=== PATIENT | female | born 1945 | race Caucasian/White ===

== ENCOUNTER → 2020-09-08 | Day surgery (SDC) | payer OTHER ==
--- OUTSIDE RECORDS SUMMARY | 2020-09-08 09:51 | XMS REPORT | Continuity of Care Document ---
:1945 Author Organization [facility] t Address [address] [place] [address] Care Team Providers Name Role Phone Unavailable Unavailable Unavailable Payers Payer Name Policy Type Policy Number Effective Date Expiration Date S ource Problems This patient has no known problems. Allergies, Adverse Reactions, Alerts Allergy Allergy Status Severity Reaction(s) Onset Inactive Treating Comm ents Source Name Type Date Date Clinician latex DA Active [place] 0 [facility] 9-01 [place] 00:[facility] latex DA Active [place] [facility] 8-31 [place] 00:00[facility] adhesive DA Active ID 0 [facility] 8-20 [place] 00:[facility] Medications This patient has no known medications. Procedures This patient has no known procedures. Results Test Description Test Time Test Comments Results Result [facility] Comments - XR FLUORO FOR 2020-07-08 Patient Name: SPINE INJ 11:04:00 JARRETT HERNANDEZ Unit No: [id number] EXAMS: CPT CODE: [id number] XR FLUORO FOR SPINE INJ 09825 LUMBAR TRANSFORAMINAL INJECTION REFERRING PHYSICIAN:Rolando Beckman M.D. PREOPERATIVE DIAGNOSIS: Degenerative Lumbar Disc Disease. POSTOPERATIVE DIAGNOSIS: Lumbar radiculopathy PROCEDURES PERFORMED 1. Fluoroscopically guided needle localization of the right L5, right S1 spinal nerve/nerves with transforaminal epidural steroid injection/injections. 2. Transforaminal epidurogram/epidurogra ms at right L5, right S1. FINDINGS: Poor filling right L5, right S1. Concordant provocation right L5 hip. Pain relief-100%. ANTIBIOTIC: Cefazolin ESTIMATED BLOOD LOSS: Minimal ANESTHESIA: (TIVA )Total intravenous anesthetic (patient intolerant to sedatives and hypnotics) COMPLICATIONS: None DETAILS OF PROCEDURE: After obtaining stable vital signs, informed consent and IV access, with no known contraindications to proceeding, the patient was taken to the fluoroscopy suite and placed in a prone position with all extremities padded and appropriate monitors placed. A sterile prep and drape was performed over the lumbosacral spine. Using fluoroscopic visualization at each level the insertion site was marked for a paravertebral approach to the foramen. Using standard technique, a 25 gauge needle was advanced to the base of the pedicle. In AP view, final positioning was obtained outside the 6 on the clock position on the pedicle. Then, 1 ml of Isovue-300 contrast was injected to produce the epidurograms. No paresthesias were elicited with needle insertion or injection and there were no signs of intravascular or intrathecal uptake. Then, with 1 ml of 4% lidocaine and 10 mg of triamcinolone was injected incrementally with frequent negative aspirations. There were no signs of intravascular or intrathecal uptake. Each subsequent level was done using the same technique and medications. The patient's vital signs remained stable. The patient was taken to the PACU in good condition. at 1104 Reported and signed by: Jose Woods M.D. CC: Technologist: Arelis Mcmillan(R) Transcribed D/ (1104) [email or web address] [place] [facility] NAME: MARYJARRETT ANN [address] [facility] PHYS: DOCUD - DoctorJose MD [place], [place] [address] : 1945 AGE: 75 SEX: F LOC: [place] PHONE #: [phone] EXAM DATE: 07/08/2020 STATUS: REG [facility] [place] FAX #: [phone] RAD #: D/C DT PAGE 1 Signed Report Patient Name: JARRETT HERNANDEZ JOSE Unit No: [id number] EXAMS: CPT CODE: [id number] XR FLUORO FOR SPINE INJ 19162 <Continued> Orig Print D/T: S: 07/08/2020 (1107) [place] [facility] NAME: JARRETT HERNANDEZ [address] [facility] PHYS: DOCUD - DoctorJose MD [place], [place] [address] : 1945 AGE: 75 SEX: F LOC: JAMES PHONE #: [phone] EXAM DATE: 07/08/2020 STATUS: REG SDC FAX #: [phone] RAD #: D/C DT PAGE 2 Signed Report - MRI L-SPINE W/O 2019-09-28 Patient Name: CONT 13:41:00 JARRETT HERNANDEZ Unit No: [id number] EXAMS: CPT CODE: [id number] MRI L-SPINE W/O CONT 40494 MRI OF THE LUMBAR SPINE: DIAGNOSIS: 1. At L1-2, a moderate to marked degeneration. There is 2 mm retrolisthesis of L5 on L2. No central canal stenosis. Moderate bilateral foraminal stenosis. 2. At L2-3, patient status post anterior discectomy and laminectomy. No foraminal stenosis. 3. At L3-4, patient status post anterior discectomy and laminectomy. Moderate right foraminal stenosis. 4. At L4-5, patient status post anterior discectomy and laminectomy. Mild bilateral bony foraminal stenosis. 5. At L5-S1, patient status post anterior discectomy and laminectomy. Mild right foraminal stenosis. 6. There appears to be solid interbody fusion at the surgical levels. COMMENT: COMPARISON: No prior exams available. Sagittal T1, T2 and STIR and axial T1 and T2-weighted sequences are obtained of the lumbar spine. The lumbar vertebrae are within normal limits in signal. The findings are as above. The conus is in the expected location. at 1341 Reported and signed by: Gray Alexander MD CC: Rolando Beckman MD Technologist: Hipolito Pond(R) Transcribed D/ (6029) SofiaGVG [facility] NAME: JARRETT HERNANDEZ [address] [facility] PHYS: SANDIP Haney KarunaRolando : 1945 AGE: 74 SEX: F [place] [id number] LOC: Y.MRI PHONE #: [phone] EXAM DATE: 09/28/2019 STATUS: REG CLI FAX #: [phone] RAD #: D/C DT PAGE 1 Signed Report Patient Name: JARRETT HERNANDEZ JOSE Unit No: [id number] EXAMS: CPT CODE: [id number] MRI L-SPINE W/O CONT 01716 <Continued> Orig Print D/T: S: 09/28/2019 (1345) [place] [facility] NAME: JARRETT HERNANDEZ [address] [place] [address] PHYS: Rolando Swanson Renato Facundo : 1945 AGE: 74 SEX: F [place] [address] LOC: Y.MRI PHONE #: [phone] EXAM DATE: 09/28/2019 STATUS: REG CLI FAX #: [phone] RAD #: D/C DT PAGE 2 Signed Report
--- NOTE | 2020-09-08 12:15 | RAD REPORT ---
EXAM DESCRIPTION: US - Fine Needle Asp Breast Guide - 09/08/2020 11:04 am CLINICAL HISTORY: N63.42, N63.23 COMPARISON: Follow Up Breast Axilla Comp dated 08/01/2020 FINDINGS: Preoperative diagnosis: Left breast lesions.. Post operative diagnosis: Same. Conscious Sedation: None Fluoroscopy time: None Contrast used: None Estimated blood loss: Minimal Specimens:Small volume of cyst fluid was sent to pathology. The left breast was prepped and draped in the usual sterile fashion. 1% lidocaine was infiltrated int o the subcutaneous tissues for local anesthesia. Real time ultrasound scanning of the left breast dem onstrated several varying shaped left breast lesions that were largely hypoechoic.. Under ultrasound guidance, using a 18-gauge FNA needle, the left breast cyst was aspirated. There were no complication s. IMPRESSION: Successful ultrasound-guided left breast cyst aspiration. Several hypoechoic lesions are scattered throughout the left breast, including somewhat poorly margin ated tissue in the periareolar region. Consider follow-up MRI breasts with contrast for further inves tigation.
== END ==
LOC: DS 09:30
PROVIDERS: ATTEND Surgery
DX: N63.42 Unspecified lump in left breast, subareolar (principal); N63.23 Unspecified lump in the left breast, lower outer quadrant
CPT/HCPCS: 10005; 76942; 88162

== ENCOUNTER 2022-03-28 07:35 | Emergency (ER) | payer OTHER ==
--- OUTSIDE RECORDS SUMMARY | 2022-03-28 07:38 | XMS REPORT | Continuity of Care Document ---
:1945 Author Organization [facility] t Address [address] [place] [id number] Care Team Providers Name Role Phone Gilberto Yifan Primary Care Physician Rebeca Morales Attending Clinician Unavailable Renato Beckman Attending Clinician Unavailable Mandeep JACQUES, S Attending Clinician Unavailable Only, Db Test Attending Clinician Unavailable Ebrahim ZINC MINER Attending Clinician EBRAHIM Attending Clinician Unavailable Doctor, Eloy Attending Clinician Unavailable Rebeca Morales Admitting Clinician Unavailable UNDEFINED Admitting Clinician Unavailable KNOW Admitting Clinician Unavailable Payers Payer Name Policy Type Policy Number Effective Date Expiration Date S ource Problems Condition Condition Condition Status Onset Resolution Last Treating Co mments Source Name Details Category Date Date Treatment Clinician Date No known No known Disease Metho di active active st problems problems Hospit [facility] Amnesia Problem Active 2021-08-14 Trev amy (finding) 01:55:23 l Amnesia [place] (finding) Active Problem 08/14/2021 [facility] Hyperlipid Problem Active 2021-08-14 M emoria emia 01:55:23 l (disorder) Mamadou n Hyperlipid emia (disorder) Active Problem 08/14/2021 [facility] Hypertensi Problem Active 2021-08-14 M emoria ve 01:55:23 l disorder, Alvin systemic Hypertensi arterial ve (disorder) disorder, systemic arterial (disorder) Active Problem 08/14/2021 [facility] Allergies, Adverse Reactions, Alerts Allergy Allergy Status Severity Reaction(s) Onset Inactive Treating Comm ents Source Name Type Date Date Clinician latex DA Active MO rash 2020-11 [facility] 2[facility] [place] [facility] latex DA Active MO 2020-0 [facility] 9[facility] [place] 00:[facility]: [facility] latex DA Active MO rash 2020-0 [facility] 9[facility] [place] 00:[facility] latex DA Active MO 2019-0 [facility] 9[facility]01 [place] 00:00: [facility] latex DA Active MO rash 2019-0 [facility] 9[facility]01 [place] 00:00: [facility] latex DA Active MO 2020-0 [facility] 8[facility]31 [place] 00:00: [facility] latex DA Active MO rash 2020-0 [facility] 8[facility]31 [place] 00:00: [facility] adhesive DA Active PR 2017-0 [facility] 8[facility]20 [place] 00[facility]00: [facility] adhesive DA Active PR BAD RASH 2017-0 [facility] 8[facility]20 [place] 00:00: [facility] NO KNOWN Drug Active Univers ALLERGIE Class ity of S [facility] [place] Social History Social Habit Start Date Stop Date Quantity Comments Source Exposure to Yes [facility] SARS-CoV-2 (event) [facility] Social History 2021-08-11 2021-08-11 [facility] 14:34:17 14:34:17 Sex Ass[birth year] [facility] 00:00:00 00:00:00 [facility] Smoking Status Start Date Stop Date Source Unknown if ever smoked [facility] Medications Ordered Filled Start Stop Current Ordering Indication Dosage Frequency Signature Comments Components Source Medication Medication Date Date Medication? Clinician (SIG) Name Name No known 2020-11 No Univers medications 2- ity of 11:45: [address] No known 2020-11 No Univers medications 2- ity of 11:45: [address] PreserVisio 2020-11 Yes 0 Memori a n AREDS 2 0-05 Refill(s) l 14:24: Alvin 00 Restasis 2020-11 Yes Q12H, 0 Memori a 0-05 Refill(s) l 14:20: Alvin 00 D3 1000 2020-11 Yes 0 Memoria 0-05 Refill(s) l 14:19: Alvin 00 Pataday 2020-11 Yes Daily, 0 Memori a 0-05 Refill(s) l 14:19: [place] 00 Omeprazole 2020-11 Yes 20 mg = 1 Me moria 20 MG 0-05 cap, PO, l Enteric 14:18: Daily, 0 Mamadou n Coated 00 Refill(s) Capsule [Prilosec] Citrucel 2020-11 Yes PO, 0 Memoria 0-05 Refill(s) l 14:18: Alvin 00 atorvastati 2020-11 No 40 mg = 1 M emoria n 40 mg 0-05 tab, PO, l oral tablet 14:17: Bedtime, # Alvin 00 30 tab, 0 Refill(s) losartan 25 2020-11 Yes 25 mg = 1 M emoria mg oral 0-05 tab, PO, l tablet 14:16: Daily, # [place] 00 30 tab, 0 Refill(s) Hydrochloro 2020-11 Yes 12.5 mg = M emoria thiazide 0-05 1 cap, PO, l 12.5 MG 14:16: Daily, # Mamadou n Oral 00 30 cap, 0 Capsule Refill(s) Atenolol 50 2020-11 Yes 50 mg = 1 M emoria MG Oral 0-05 tab, PO, l Tablet 14:16: Daily, # Alvin 00 30 tab, 0 Refill(s) pravastatin 2020-11 Yes 80 mg = 1 M emoria 80 mg oral 0-05 tab, PO, l tablet 14:16: Bedtime, # Catherine nn 00 30 tab, 0 Refill(s) gabapentin 2020-11 Yes 300 mg = 1 M emoria 300 MG Oral 0-05 cap, PO, l Capsule 14:14: TID, # 90 Catherine nn 00 cap, 0 Refill(s) No known No [facility] Immunizations Ordered Immunization Filled Immunization Date Status Commen ts Source Name Name PFIZER COVID-19 MRNA 2020-12-24 Completed Meth odist VACCINATION 00:00:00 [facility] PFIZER COVID-19 MRNA 2020-12-03 Completed Meth odist VACCINATION 00:00:00 [facility] Zoster Vaccine 2020-09-25 Completed Alevism Recombinant 00:00:00 [facility] FLUZONE HIGH-DOSE PF 2020-08-25 Completed Meth odist 00:00:00 Hospital Zoster Vaccine 2020-07-28 Completed Alevism Recombinant 00:00:00 Hospital Vital Signs Vital Name Observation Time Observation Value Comments Source Systolic (mm Hg) 2021-08-11 13:57:00 Trev Malhotra Diastolic (mm Hg) 2021-08-11 13:57:00 [facility] orial [place] Heart Rate 2021-08-11 13:57:00 [facility] Respitory Rate 2021-08-11 13:57[facility] [place] Height 2021-08-11 13:57:00 162.56 cm [facility] Weight 2021-08-11 13:57:00 [facility] BMI Calculated 2021-08-11 13:57:[facility] Procedures Procedure Date / Time Performed Performing Clinician Dalila e Lumbar discectomy [facility] nn Plan of Care Planned Activity Planned Date Details Comments Source Future Scheduled Test 65+ PNEUMOCOCCAL [facility] VACCINE (1 of 1 - PPSV23) [code = 65+ PNEUMOCOCCAL VACCINE (1 of 1 - PPSV23)] Future Scheduled Test SHINGLES VACCINES (#2) [facility] [code = SHINGLES VACCINES (#2)] Future Scheduled Test INFLUENZA VACCINE [code [facility] = INFLUENZA VACCINE] Encounters Start End Encounter Admission Attending Care Care Encounter Source Date/Time Date/Time Type Type Clinicians Facility Department ID 2021-10-23 Outpatient JASPAL Morales [id number] [facility] 19:21:51 Nikita 36 [place] [facility] 2021-08-14 Inpatient JASPAL Cota [facility] [id number] [facility] 09:15:00 Rolando [id number] [place] [facility] 2021-11-07 2021-11-07 Telephone KaufmanHERNESTO [id number] Univers 00:00:00 00:00:00 [facility]7.2.686 Branden as [id number] [facility] [address] 2021-11-06 2021-11-06 Laboratory Only, Ang Db Test [facility] 1.2.8 40.114 [id number] Univers 11:30:00 11:45:00 Only Meng Schroeder [facility] 350.1.13.10 [facility] 4.2.7.2.686 Branden as TOSHIA?BLEA [id number] Pr danni [address] MEDICAL OFFICE BUILDING 2021-11-06 2021-11-06 Outpatient Neema SCHROEDER [facility] [id number] Univers 11:30:00 11:30:00 MENG [facility] 2021-10-23 2021-10-23 Outpatient RONNIE DsouzaTO PAIN [id number] [facility] 08:49:00 08:49:00 Nikita [id number] [place] [facility] 2021-09-22 2021-09-22 Outpatient MHIE MHIE [id number] Memoria 09:00:00 09:00:00 01 l [place] 2021-08-14 2021-08-14 Outpatient RONNIE CotaTO RADI [id number] [facility] 08:16:00 08:16:00 Rolando 94 [place] [facility] 2021-08-11 2021-08-12 Outpatient nullFlavo MNA [id number] Memoria 13:30:00 04:59:59 r Neurology 00 [place] Malhotra 2021-07-10 2021-07-10 Outpatient JASPAL Dsouza PAIN [id number] [facility] 09:12:00 09:12:00 Nikita [id number] [place] [facility] 2020-12-24 2020-12-24 Clinical 1.2.840.1 [id number] Methodi 10:23:04 12:01:[address] 3.430.2.7 Hospit a .3.080093 l .8 2020-12-24 2020-12-24 Travel 1.2.840.1 1.2.659.583 [id number] Methodi 00:00:00 00:00:[address] 3.430.2.7 0.2.7.3.698 Ho spita .3.438887 084.8 l .8 2020-12-03 2020-12-03 Clinical 1.2.840.1 [id number] [facility]i 09:44:59 09:55:[address] 3.430.2.7 Hospit a .3.221810 l .8 2020-12-03 2020-12-03 Travel 1.2.840.1 1.2.487.289 7812 [id number] Methodi 00:00:00 00:00:[address] 3.430.2.7 0.2.7.3.698 Ho spita .3.739956 084.8 l .8 2020-11-25 2020-11-25 Travel 1.2.840.1 1.2.241.989 [id number] [id number] Methodi 00:00:00 00:00:[address] 3.430.2.7 0.2.7.3.698 Ho spita .3.112069 084.8 l .8 2020-07-08 2020-07-08 Outpatient Doctor, RONNIETO PAIN [id number] [facility] 12:00:00 12:00:00 Jose [place] [facility] Results Test Description Test Time Test Comments Results Result [facility] e Comments - XR FLUORO FOR 2021-10-23 SPINE INJ 19:18:00 [facility] JOSE : 1945 Sex: F Patient Name: JARRETT HERNANDEZ Unit No: [id number] EXAMS: CPT CODE: [id number] XR FLUORO FOR SPINE INJ 24992 LUMBAR EPIRADICULAR INJECTION REFERRAL PHYSICIAN: Rolando Beckman M.D. PREOPERATIVE DIAGNOSIS: Lumbar Radiculitis POSTOPERATIVE DIAGNOSIS: Status post L3-S1 fusion with right lumbar radiculitis PROCEDURES PERFORMED: Fluoroscopically guided needle localization of the right L5 and right S1 spinal nerves with transforaminal epidurograms and epidural injection of local anesthetic and steroid. FINDINGS: Good flow seen through the right L5-S1 foramen. Proximal flow was obstructed across the L4-5 disc. Flow seen around the S1 pedicle but limited in the right L5-S1 lateral recess. Provocation with injection was negative. Anesthetic response was positive with the patient noting relief of her right low back and radiating lower extremity pain. Preinjection VAS 4/10. Postinjection VAS 0/10. Steroid response pending follow-up. ESTIMATED BLOOD LOSS: Minimal ANESTHESIA: TIVA COMPLICATIONS: None DETAILS OF PROCEDURE: After obtaining stable vital signs, informed consent and IV access, with no contraindications, the patient was taken to the operating room and placed in a prone position with all extremities padded and appropriate monitors placed. The patient was sterilely prepped and draped over the lumbosacral spine. Using fluoroscopic visualization the insertion sites were marked for paravertebral approaches and using standard technique, a 25 gauge needle was advanced to the base of each pedicle without paresthesias. Isovue-300 contrast 0.2 mL of was injected at each level incrementally with frequent negative aspirations to produce each epidurogram. There were no signs of intravascular or intrathecal uptake. Bupivicaine 0.75% 0.25 mL with lidocaine 4% 0.5 mL and Decadron 8 mg was then incrementally injected with frequent negative aspirations at each level and again there were no signs of intravascular or intrathecal uptake. The needles were removed and the patient was taken to the PACU in good condition. Image: Image 1 Image: Image 2 at 1918 Reported and signed by: Nikita Morales M.D. [facility] NAME: JARRETT HERNANDEZ [address] [facility] PHYS: Nikita Wolff MD : 1945 AGE: 76 SEX: F [place], [place] [address] LOC: JAMES PHONE #: [phone] EXAM DATE: 10/23/2021 STATUS: REG [facility] FAX #: [phone] RAD #: D/C DT PAGE 1 Signed Report (CONTINUED) Patient Name: JARRETT HERNANDEZ Unit No: [id number] EXAMS: CPT CODE: [id number] XR FLUORO FOR SPINE INJ 16123 <Continued> CC: Nikita Morales MD Technologist: Carl Gage,RT(R) Transcribed D/ (1917) [facility]: JARRETT HERNANDEZ [address] [place] [address] PHYS: Nikita Wolff MD : 1945 AGE: 76 SEX: F [place] [address] LOC: JAMES PHONE #: [phone] EXAM DATE: 10/23/2021 STATUS: REG [facility] FAX #: [phone] RAD #: D/C DT PAGE 2 Signed Report Patient Name: JARRETT HERNANDEZ Unit No: [id number] EXAMS: CPT CODE: [id number] XR FLUORO FOR SPINE INJ 55257 <Continued> Orig Print D/T: S: 10/23/2021 (1920) [facility] NAME: JARRETT HERNANDEZ [address] [place] [address] PHYS: Nikita Wolff MD : 1945 AGE: 76 SEX: F [place] [address] LOC: JAMES PHONE #: [phone] EXAM DATE: 10/23/2021 STATUS: REG [facility] FAX #: [phone] RAD #: D/C DT PAGE 3 Signed Report - MRI L-SPINE W/O 2021-08-14 [facility] 10:32:00 [facility] : 1945 Sex: F Patient Name: JARRETT HERNANDEZ Unit No: [id number] EXAMS: CPT CODE: [id number] MRI L-SPINE W/O CONT 01631 DIAGNOSIS: 1. At L1-2 there is endplate and disc degeneration and a grade 2 retrolisthesis with associated disc protrusion which is lateralizing into the left neural foramen. Moderate left foraminal narrowing is seen with moderate to marked right-sided stenosis. Moderate narrowing of the central canal is present with facet degeneration. Comparison is made with the previous examination of September 28, 2019. 2. At L2-3 the patient is status post discectomy and graft with mild right foraminal narrowing without left-sided stenosis. No canal stenosis is seen. 3. At L3-4 the patient is status post discectomy and graft with moderate right foraminal narrowing without left-sided stenosis. Decompression of the canal has been performed. 4. At L4-5 the patient is status post discectomy and graft with moderate right foraminal narrowing and mild left-sided stenosis. Decompression of the canal has been performed. 5. At L5-S1 the patient is status post discectomy and graft with mild foraminal narrowing. Decompression of the canal has been performed. COMMENT: COMPARISON: September 28, 2019 Scans were performed in the sagittal and axial planes utilizing T1, T2 and inversion recovery images. Postsurgical change is noted from L4 to to S1. Endplate and disc degeneration is seen at L1-2. There is a scoliosis convex left. Disc configurations are as described. Spondylitic changes are as noted. The conus is in the expected location. The description of the levels of these findings is consistent with the prior exam. at 1032 Reported and signed by: David Zavala MD CC: Nikita Morales MD; Rolando Beckman MD Technologist: LESTER MIRANDA MRI Transcribed D/ (1032) t.[email or web address].[email or web address] [facility] NAME: JARRETT HERNANDEZ [address] [facility]: Rolando Swanson : 1945 AGE: 76 SEX: F [place], [place] [address] LOC: Y.MRI PHONE #: [phone] EXAM DATE: 08/14/2021 STATUS: REG CLI FAX #: [phone] RAD #: D/C DT PAGE 1 Signed Report Patient Name: JARRETT HERNANDEZ JOSE Unit No: [id number] EXAMS: CPT CODE: [id number] MRI L-SPINE W/O CONT 01107 <Continued> Orig Print D/T: S: 08/14/2021 (1035) [facility] NAME: JARRETT HERNANDEZ [address] [facility] PHYS: Rolando Swanson : 1945 AGE: 76 SEX: F [place], [place] [address] LOC: Y.MRI PHONE #: [phone] EXAM DATE: 08/14/2021 STATUS: REG CLI FAX #: [phone] RAD #: D/C DT PAGE 2 Signed Report - XR FLUORO FOR 2021-07-10 SPINE INJ 18:59:00 [facility] [place] [facility] : 1945 Sex: F Patient Name: JARRETT HERNANDEZ JOSE Unit No: [id number] EXAMS: CPT CODE: [id number] XR FLUORO FOR SPINE INJ 62477 LUMBAR EPIRADICULAR INJECTION REFERRAL PHYSICIAN: Rolando Beckman M.D. PREOPERATIVE DIAGNOSIS: Lumbar Radiculitis POSTOPERATIVE DIAGNOSIS: Status post L3-S1 fusion with right lumbar radiculitis PROCEDURES PERFORMED: Fluoroscopically guided needle localization of the right L5 and right S1 spinal nerves with transforaminal epidurograms and epidural injection of local anesthetic and steroid. FINDINGS: Good flow seen along the L5 and S1 nerve root sleeves with good flow through the foramen and across the L5-S1 disc. Provocation with injection was negative. Anesthetic response was positive with the patient noting complete relief of her right low back and lower extremity pain. Preinjection VAS 1/10. Postinjection VAS 0/10. Steroid response pending follow-up. ESTIMATED BLOOD LOSS: Minimal ANESTHESIA: TIVA COMPLICATIONS: None DETAILS OF PROCEDURE: After obtaining stable vital signs, informed consent and IV access, with no contraindications, the patient was taken to the operating room and placed in a prone position with all extremities padded and appropriate monitors placed. The patient was sterilely prepped and draped over the lumbosacral spine. Using fluoroscopic visualization the insertion sites were marked for paravertebral approaches and using standard technique, a 25 gauge needle was advanced to the base of each pedicle without paresthesias. Isovue-300 contrast 0.2 mL of was injected incrementally with frequent negative aspirations to produce each epidurogram. There were no signs of intravascular or intrathecal uptake. Bupivicaine 0.75% 0.25 mL with lidocaine 4% 0.5 mL and Decadron 1 mg was then incrementally injected with frequent negative aspirations and again there were no signs of intravascular or intrathecal uptake. The needles were removed and the patient was taken to the PACU in good condition. Image: Image 1 Image: Image 2 at 1859 Reported and signed by: Nikita Morales M.D. [facility] NAME: SINTIAJARRETT JOSE [address] [facility] PHYS: Nikita Wolff MD [place], [place] [address] : 1945 AGE: 76 SEX: F LOC: JAMES PHONE #: [phone] EXAM DATE: 07/10/2021 STATUS: REG [facility] FAX #: [phone] RAD #: D/C DT PAGE 1 Signed Report (CONTINUED) Patient Name: JARRETT HERNANDEZ Unit No: [id number] EXAMS: CPT CODE: [id number] XR FLUORO FOR SPINE INJ 54915 <Continued> CC: Technologist: Arelis Mcmillan(R) Transcribed D/ (185) [facility] NAME: JARRETT HERNANDEZ [address] [facility] PHYS: Nikita Wolff MD [place] [address] : 1945 AGE: 76 SEX: F LOC: JAMES PHONE #: [phone] EXAM DATE: 07/10/2021 STATUS: REG [facility] FAX #: [phone] RAD #: D/C DT PAGE 2 Signed Report Patient Name: JARRETT HERNANDEZ Unit No: [id number] EXAMS: CPT CODE: [id number] XR FLUORO FOR SPINE INJ 75855 <Continued> Orig Print D/T: S: 07/10/2021 (1903) [facility] NAME: JARRETT HERNANDEZ [address] [facility] PHYS: Nikita Wolff MD [place] [address] : 1945 AGE: 76 SEX: F LOC: JAMES PHONE #: [phone] EXAM DATE: 07/10/2021 STATUS: REG [facility] FAX #: [phone] RAD #: D/C DT PAGE 3 Signed Report - XR FLUORO FOR 2020-07-08 Patient Name: SPINE INJ 11:04:00 JRARETT HERNANDEZ JOSE Unit No: [id number] EXAMS: CPT CODE: [id number] XR FLUORO FOR SPINE INJ 29102 LUMBAR TRANSFORAMINAL INJECTION REFERRING PHYSICIAN:Rolando Beckman M.D. [...] CC: Technologist: Arelis Mcmillan(R) Transcribed D/ (1104) SofiaUVD [place] [facility] NAME: JARRETT HERNANDEZ [address] [facility] PHYS: DOCUD - DoctorJose MD [place], [place] [address] : 1945 AGE: 75 SEX: F LOC: JAMES PHONE #: [phone] EXAM DATE: 07/08/2020 STATUS: REG [facility] FAX #: [phone] RAD #: D/C DT PAGE 1 Signed Report Patient Name: JARRETT HERNANDEZ Unit No: [id number] EXAMS: CPT CODE: [id number] XR FLUORO FOR SPINE INJ 17315 <Continued> Orig Print D/T: S: 07/08/2020 (1107) [place] [facility] NAME: JARRETT HERNANDEZ [address] [facility] PHYS: DOCUD - DoctorJose MD [place], [place] [address] : 1945 AGE: 75 SEX: F LOC: JAMES PHONE #: [phone] EXAM DATE: 07/08/2020 STATUS: REG [facility] FAX #: [phone] RAD #: D/C DT PAGE 2 Signed Report - MRI L-SPINE W/O 2019-09-28 Patient Name: CONT 13:41:00 JARRETT HERNANDEZ Unit No: [id number] EXAMS: CPT CODE: [id number] MRI L-SPINE W/O CONT 57994 MRI OF THE LUMBAR SPINE: DIAGNOSIS: 1. [...] MD CC: Rolando Beckman MD Technologist: Hipolito Pond(Neema) Transcribed D/ (9032) SofiaGVG [facility] NAME: JARRETT HERNANDEZ [address] [facility] PHYS: Rolando Swansonkrysta [place] : 1945 AGE: 74 SEX: F [place] [address] LOC: Y.MRI PHONE #: [phone] EXAM DATE: 09/28/2019 STATUS: REG CLI FAX #: [phone] RAD #: D/C DT PAGE 1 Signed Report Patient Name: JARRETT HERNANDEZ Unit No: [id number] EXAMS: CPT CODE: [id number] MRI L-SPINE W/O CONT 95112 <Continued> Orig Print D/T: S: 09/28/2019 (1345) [facility] NAME: JARRETT HERNANDEZ [address] [facility] PHYS: Rolando Swansonn Facundo : 1945 AGE: 74 SEX: F [place] [address] LOC: Y.MRI PHONE #: [phone] EXAM DATE: 09/28/2019 STATUS: REG CLI FAX #: [phone] RAD #: D/C DT PAGE 2 Signed Report
[2022-03-28 08:46] LABS: Absolute Lymphocytes (CBC) 1.6 K/uL (0.7-4.9); Hematocrit 34.7 % (36.0-45.0); Lymphocytes % 41.2 % (15.3-44.8); MPV 8.2 fL (7.6-11.3)
--- NOTE | 2022-03-28 08:46 | RAD REPORT ---
EXAM DESCRIPTION: RAD - Chest Single View - 03/28/2022 8:22 am CLINICAL HISTORY: high bp COMPARISON: Two view chest 06/29/2019 TECHNIQUE: AP portable chest image was obtained 03/28/2022 8:22 am . FINDINGS: No focal mass or consolidation. Diffusely prominent interstitial pattern is not clearly di fferent from comparison. Severity of interstitial disease could mask superimposed edema or infiltrate . Electronic device overlies the lateral upper left chest. Heart and vasculature are normal. No measura ble pleural effusion and no pneumothorax. No acute bony abnormality seen. No acute aortic findings crews spected. IMPRESSION: Diffusely prominent interstitial lung pattern not significantly different from compariso n. Severity of chronic findings could mask early edema or infiltrate.
[2022-03-28 08:50] LABS: Protime INR 1.05
[2022-03-28 09:03] LABS: ALT/SGPT 30 U/L (12-78); AST/SGOT 19 U/L (15-37); Albumin 3.2 g/dL (3.4-5.0); Alkaline Phosphatase 116 U/L (45-117); BUN Blood Urea Nitrogen 14 mg/dL (7-18); Bicarbonate 29 mmol/L (21-32); Bilirubin Total 0.3 mg/dL (0.2-1.0); Glomerular Filtration Rate 79 ml/min (=/>90); Glucose Level 116 mg/dL (74-106); Magnesium 2.1 mg/dL (1.8-2.4); NT PRO-BNP 245 pg/mL (<450); Potassium 3.4 mmol/L (3.5-5.1); Protein, Total 6.8 g/dL (6.4-8.2); Sodium Level 141 mmol/L (136-145); Troponin High Sensitivity 6.1 pg/mL (<58.9)
[2022-03-28] MEDS ORDERED: hydroCHLOROthiazide 25 MG TAB ONE (09:06)
[2022-03-28] MEDS ORDERED: atenoloL 50 MG TAB ONE (09:06)
[2022-03-28] MEDS ORDERED: LOSARTAN POTASSIUM 50 MG TABLET ONE (09:06)
[2022-03-28 09:07] LABS: Bilirubin Direct < 0.1 mg/dL (0-0.2)
[2022-03-28 09:33] LABS: Blood Morphology Comment NOT SEEN (NOT SEEN); Platelet Estimate ADEQ
--- NOTE | 2022-03-28 10:54 | ER ---
Nurse's Notes [facility] Name: Samira Patricio Age: 77 yrs Sex: Female : 1945 Arrival Date: 03/28/2022 Time: 07:38 Bed 7 Private MD: Jez Macias Diagnosis: Essential (primary) hypertension Presentation: 03/28 07:54 Chief complaint: Patient states: "Carole been on a heart monitor for a week and Im suppose vg1 to have a stress test on ; but this morning I notice my blood pressure was high" Denies chest pain or SOB; stated pain in left arm x 2 weeks. BP at home was 187/85 at 0615 and reassessed at 0645 of 176/80. Coronavirus screen: Vaccine status: Patient reports receiving the 2nd dose of the covid vaccine. Client denies travel out of the [place] in the last 14 days. Ebola Screen: Patient denies exposure to infectious person. Patient denies travel to an Ebola-affected area in the 21 days before illness onset. Initial Sepsis Screen: Does the patient meet any 2 criteria? No. Patient's initial sepsis screen is negative. Does the patient have a suspected source of infection? No. Patient's initial sepsis screen is negative. Risk Assessment: Do you want to hurt yourself or someone else? Patient reports no desire to harm self or others. Onset of symptoms was March 28, 2022. 07:54 Method Of Arrival: Ambulatory vg1 07:54 Acuity: MEME 3 vg1 Triage Assessment: 07:56 General: Appears comfortable, Behavior is calm, cooperative. Pain: Complains of pain in vg1 left arm. Cardiovascular: Patient's skin is warm and dry. Respiratory: Airway is patent Respiratory effort is even, unlabored. Historical: - Allergies: 07:56 No Known Allergies; vg1 - Home Meds: 07:56 Pepcid Oral [Active]; losartan oral [Active]; atenolol Oral [Active]; pravastatin oral vg1 [Active]; gabapentin oral [Active]; - PMHx: 07:56 Hypertensive disorder; Scoliosis; Hypercholesterolemia; vg1 - Immunization history:: Client reports receiving the 2nd dose of the Covid vaccine. - Social history:: Smoking status: Patient denies any tobacco usage or history of. - Family history:: not pertinent. Screenin:54 Abuse screen: Denies threats or abuse. Denies injuries from another. Nutritional ww screening: No deficits noted. Tuberculosis screening: No symptoms or risk factors identified. Fall Risk None identified. Assessment: 08:15 General: Appears in no apparent distress. Behavior is calm, cooperative. Pain: Denies ww pain. Neuro: Level of Consciousness is awake, alert, obeys commands, Oriented to person, place, time, situation, Moves all extremities. Speech is normal. Cardiovascular: Patient's skin is warm and dry. Respiratory: Airway is patent Respiratory effort is even, unlabored, Respiratory pattern is regular, symmetrical. GI: No signs and/or symptoms were reported involving the gastrointestinal system. : No signs and/or symptoms were reported regarding the genitourinary system. Derm: No signs and/or symptoms reported regarding the dermatologic system. Skin is thin. 09:30 Reassessment: Patient appears in no apparent distress at this time. No changes from ww previously documented assessment. Patient and/or family updated on plan of care and expected duration. Pain level reassessed. Patient is alert, oriented x 3, equal unlabored respirations, skin warm/dry/pink. 10:15 Reassessment: Patient appears in no apparent distress at this time. No changes from ww previously documented assessment. Patient and/or family updated on plan of care and expected duration. Pain level reassessed. Patient is alert, oriented x 3, equal unlabored respirations, skin warm/dry/pink. 11:03 Reassessment: Patient appears in no apparent distress at this time. No changes from ww previously documented assessment. Patient and/or family updated on plan of care and expected duration. Pain level reassessed. Patient is alert, oriented x 3, equal unlabored respirations, skin warm/dry/pink. Vital Signs: 07:54 BP 152 / 84; Pulse 68; Resp 18; Temp 97.7; Pulse Ox 100% ; Weight 89.81 kg; Height 5 vg1 ft. 5 in. (165.10 cm); Pain 3/10; 08:30 BP 174 / 70; Pulse 64; Resp 16; Pulse Ox 98% ; ww 09:30 BP 170 / 58; Pulse 59; Resp 15; Pulse Ox 96% ; ww 10:00 BP 150 / 62; Pulse 53; Resp 14; Pulse Ox 97% ; ww 10:52 BP 165 / 65; Pulse 60; Resp 18; Pulse Ox 98% ; ww 07:54 Body Mass Index 32.95 (89.81 kg, 165.10 cm) 1 ED Course: 07:38 Patient arrived in ED. mr 07:38 Jez Macias MD is Private Physician. mr 07:44 Jac Anaya MD is Attending Physician. [facility] 07:56 Triage completed. 1 07:56 Yareli Haney, RN is Primary Nurse. ww 07:56 Arm band placed on. vg1 08:23 XRAY Chest (1 view) In Process Unspecified. EDMS 08:28 Initial lab(s) drawn, by me, sent to lab. Inserted saline lock: 20 gauge in right dh3 antecubital area, using aseptic technique. Blood collected. 10:54 Patient has correct armband on for positive identification. Placed in gown. Bed in low ww position. Call light in reach. Side rails up X 1. Adult w/ patient. Client placed on continuous cardiac and pulse oximetry monitoring. NIBP monitoring applied. 10:54 No provider procedures requiring assistance completed. ww 11:17 IV discontinued, bleeding controlled, No redness/swelling at site. Pressure dressing ww applied. Administered Medications: 09:22 Drug: Losartan 25 mg Route: PO; ww 09:22 Drug: Hydrochlorothiazide 12.5 mg Route: PO; ww 09:22 Drug: Atenolol 50 mg Route: PO; ww Medication: 11:17 VIS not applicable for this client. ww Outcome: 10:53 Discharge ordered by . [facility] 11:17 Discharged to home ambulatory, with family. ww 11:17 Condition: stable 11:17 Discharge instructions given to patient, family, Instructed on discharge instructions, follow up and referral plans. medication usage, safety practices, Demonstrated understanding of instructions, follow-up care, medications. 11:17 Patient left the ED. ww Signatures: Dispatcher [employer] [facility] Tashia Vazquez, [facility] Jac Anaya MD MD ma2 Garcia, Victoria, RN RN [facility] Yareli Haney, RN RN ww
--- NOTE | 2022-03-28 10:54 | EDPHYS ---
Physician Documentation [facility] Name: Samira Patricio Age: 77 yrs Sex: Female : 1945 Arrival Date: 03/28/2022 Time: 07:38 Bed 7 Private MD: Jez Macias ED Physician Jac Anaya HPI: 03/28 08:38 This 77 yrs old Female presents to ER via Ambulatory with complaints of High Blood ma2 Pressure. 08:38 Has hypertension, she checked her blood pressure this morning was 182/90 so she decided ma2 to come to ER. To have that blood pressure rechecked and for further evaluation, of note patient states she does not have any symptom at this time specifically she does not have chest pain or any anginal equivalent. Historical: - Allergies: 07:56 No Known Allergies; vg1 - Home Meds: 07:56 Pepcid Oral [Active]; losartan oral [Active]; atenolol Oral [Active]; pravastatin oral vg1 [Active]; gabapentin oral [Active]; - PMHx: 07:56 Hypertensive disorder; Scoliosis; Hypercholesterolemia; vg1 - Immunization history:: Client reports receiving the 2nd dose of the Covid vaccine. - Social history:: Smoking status: Patient denies any tobacco usage or history of. - Family history:: not pertinent. ROS: 08:38 Constitutional: Negative for fever, chills, and weight loss, Eyes: Negative for injury, ma2 pain, redness, and discharge. 08:38 All other systems are negative. Exam: 08:38 Constitutional: This is a well developed, well nourished patient who is awake, alert, ma2 and in no acute distress. Head/Face: Normocephalic, atraumatic. Eyes: Pupils equal round and reactive to light, extra-ocular motions intact. Lids and lashes normal. Conjunctiva and sclera are non-icteric and not injected. Cornea within normal limits. Periorbital areas with no swelling, redness, or edema. ENT: Nares patent. No nasal discharge, no septal abnormalities noted. Tympanic membranes are normal and external auditory canals are clear. Oropharynx with no redness, swelling, or masses, exudates, or evidence of obstruction, uvula midline. Mucous membranes moist. Neck: Trachea midline, no thyromegaly or masses palpated, and no cervical lymphadenopathy. Supple, full range of motion without nuchal rigidity, or vertebral point tenderness. No Meningismus. Chest/axilla: Normal chest wall appearance and motion. Nontender with no deformity. No lesions are appreciated. Cardiovascular: Regular rate and rhythm with a normal S1 and S2. No gallops, murmurs, or rubs. Normal PMI, no JVD. No pulse deficits. Respiratory: Lungs have equal breath sounds bilaterally, clear to auscultation and percussion. No rales, rhonchi or wheezes noted. No increased work of breathing, no retractions or nasal flaring. Abdomen/GI: Soft, non-tender, with normal bowel sounds. No distension or tympany. No guarding or rebound. No evidence of tenderness throughout. Skin: Warm, dry with normal turgor. Normal color with no rashes, no lesions, and no evidence of cellulitis. MS/ Extremity: Pulses equal, no cyanosis. Neurovascular intact. Full, normal range of motion. Neuro: Awake and alert, GCS 15, oriented to person, place, time, and situation. Cranial nerves II-XII grossly intact. Motor strength 5/5 in all extremities. Sensory grossly intact. Cerebellar exam normal. Normal gait. Vital Signs: 07:54 BP 152 / 84; Pulse 68; Resp 18; Temp 97.7; Pulse Ox 100% ; Weight 89.81 kg; Height 5 vg1 ft. 5 in. (165.10 cm); Pain 3/10; 08:30 BP 174 / 70; Pulse 64; Resp 16; Pulse Ox 98% ; ww 09:30 BP 170 / 58; Pulse 59; Resp 15; Pulse Ox 96% ; ww 10:00 BP 150 / 62; Pulse 53; Resp 14; Pulse Ox 97% ; ww 10:52 BP 165 / 65; Pulse 60; Resp 18; Pulse Ox 98% ; ww 07:54 Body Mass Index 32.95 (89.81 kg, 165.10 cm) vg1 MDM: 08:02 Patient medically screened. ma2 08:38 Differential diagnosis: Likely essential hypertension with no secondary end organ ma2 damage, however will check for possibility of endorgan damage blood pressure is 150/80 at this time. 10:53 Data reviewed: vital signs, nurses notes. Counseling: I had a detailed discussion with ma2 the patient and/or guardian regarding: the historical points, exam findings, and any diagnostic results supporting the discharge/admit diagnosis, the presence of at least one elevated blood pressure reading (>120/80) during this emergency department visit, the need for outpatient follow up. Response to treatment: the patient's symptoms have markedly improved after treatment. 03/28 07:43 Order name: Basic Metabolic Panel; Complete Time: 09:11 [facility] 03/28 07:43 Order name: CBC with Diff; Complete Time: 09:48 sc2 03/28 07:43 Order name: LFT's; Complete Time: 09:11 [facility] 03/28 07:43 Order name: Magnesium; Complete Time: 09:11 [facility] 03/28 07:43 Order name: NT PRO-BNP; Complete Time: 09:11 sc03/28 07:43 Order name: PT-INR; Complete Time: 08:59 sc03/28 07:43 Order name: Troponin HS; Complete Time: 09:11 [facility] 03/28 07:43 Order name: XRAY Chest (1 view); Complete Time: 08:59 sc2 03/28 07:43 Order name: EKG; Complete Time: 07:44 sc2 03/28 07:43 Order name: Cardiac monitoring; Complete Time: 08:38 [facility] 03/28 09:35 Order name: Manual Differential; Complete Time: 09:48 EDMS 03/28 07:43 Order name: EKG - Nurse/Tech; Complete Time: 08:37 [facility] 03/28 07:43 Order name: IV Saline Lock; Complete Time: 08:31 sc2 03/28 07:43 Order name: Labs collected and sent; Complete Time: 08:31 [facility] 03/28 07:43 Order name: O2 Per Protocol; Complete Time: 08:38 sc2 03/28 07:43 Order name: O2 Sat Monitoring; Complete Time: 08:38 sc2 Administered Medications: : Drug: Losartan 25 mg Route: PO; ww : Drug: Hydrochlorothiazide 12.5 mg Route: PO; ww : Drug: Atenolol 50 mg Route: PO; ww Disposition Summary: 03/28/22 10:53 Discharge Ordered Location: Home ma2 Condition: Stable ma2 Diagnosis - Essential (primary) hypertension ma2 Followup: ma2 - With: Private Physician - When: Tomorrow - Reason: If symptoms return, Continuance of care Discharge Instructions: - Discharge Summary Sheet ma2 - Hypertension, Adult ma2 - DASH Eating Plan ma2 Forms: - Medication Reconciliation Form ma2 - Thank You Letter ma2 - Antibiotic Education ma2 - Prescription Opioid Use ma2 Signatures: Dispatcher [employer] EDJac Angel MD MD ma2 Annmarie Valle RN RN vg1 Yareli Haney RN RN ww Corrections: (The following items were deleted from the chart) 09:21 08:02 Dermabond ordered. ma2 ww
[2022-03-28 11:23] VITALS: TEMP 97.7
[2022-03-28 11:29] VITALS: BP 165/65; O2SAT 98
--- NOTE | 2022-03-29 11:26 | EKG ---
Test Date: 2022-03-28 Test Time: 08:34:20 Photography Coordinator: BRICE MEASUREMENT RESULTS: Intervals: Rate: 63 NE: 176 QRSD: 86 QT: 398 QTc: 407 [place]: P: 43 NE: 176 QRS: 17 T: 54 INTERPRETIVE STATEMENTS: Normal sinus rhythm Normal ECG Compared to ECG 07/18/2013 15:36:32 Myocardial infarct finding no longer present Electronically Signed On 03-29-22 11:23:34 CDT by Marvin Tena
== END 2022-03-28 11:17 | disposition home or self-care (01) ==
LOC: ER 07:35
DX: I10 Essential (primary) hypertension (principal); E78.00 Pure hypercholesterolemia, unspecified; M41.9 Scoliosis, unspecified
CPT/HCPCS: 36415; 71045; 80048; 80076; 83735; 83880; 84484; 85025; 85610; 93005; 99284

== ENCOUNTER 2022-09-27 11:01 | Observation (INO) | payer OTHER ==
--- OUTSIDE RECORDS SUMMARY | 2022-09-27 12:02 | XMS REPORT | Continuity of Care Document ---
:1945 Author Organization [facility] Address [address] [place] [address] [place] [id number] Care Team Providers Name Role Phone Asked, No Pcp Primary Care Physician Unavailable Sudheer Attending Clinician Unavailable Joby Ulrich Attending Clinician Unavailable Dylan Burger Attending Clinician Joby Ulrich Attending Clinician [phone] Nikita Cevallos Attending Clinician [phone] Nikita Cevallos Attending Clinician Unavailable LATRICIA_JUANABlackVianney Attending Clinician Unavailable Maricarmen Hernandez Attending Clinician [phone] Lydia Kaufman RN Attending Clinician Unavailable Only, Ang Db Test Attending Clinician Unavailable Mica Lancaster Attending Clinician MICA MARX Attending Clinician Unavailable Nikita Morales Attending Clinician Unavailable Rolando Beckman Attending Clinician Unavailable Jose Woods Attending Clinician Unavailable Sudheer Admitting Clinician Unavailable Joby Ulrich Admitting Clinician Unavailable Nikita Morales Admitting Clinician Unavailable MILTONBlackVianney Admitting Clinician Unavailable UNDEFINED Admitting Clinician Unavailable KNOW, DOES_NOT Admitting Clinician Unavailable Payers Payer Name Policy Type Policy Number Effective Date Expiration Date [facility] [id number] 2021 (MEDICARE 00:00:00 REPLACEMENT/ADVANTA GE - PPO) Problems Condition Condition Condition Status Onset Resolution Last Treating Co mments Source Name Details Category Date Date Treatment Clinician Date Osteoarthr Osteoarthr Problem Active A zalea itis of itis of 8 [facility] left knee Left Knee 00:00: dic joint Joint 00 [facility] Osteoarthr Osteoarthr Problem Active A zalea itis of itis of 8 Orth[facility] right knee Right Knee 00:00: di c joint Joint 00 Sports Medicin e Rotator Rotator Problem Active Amelie cuff Cuff 8- Orth[facility] arthropath Arthropath 00:00: di c y of left y of Left 00 Spor ts shoulder Shoulder Medici n e Localized, Localized, Problem Active A zalea primary Primary 06-02 [facility] osteoarthr Osteoarthr 00:00: di c itis of itis of 00 Sports the the Medicin shoulder Shoulder e region Region Tear of Tear of Problem Active Amelie left Left 06-02 Orthope rotator Rotator 00:00: dic cuff Cuff 00 Sports Medicin e Lumbosacra Lumbosacra Problem Active 2020-11 A zalea l l 0-08 Orth[facility] spondylosi Spondylosi 00:00: di c s with s with 00 Sports radiculopa Radiculopa Me dicin thy thy e 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 00 Sp orts bral disc bral Disc Medi woodrow e Lumbar Lumbar Problem Active Amelie radiculopa Radiculopa 4-07 Or thope thy thy 00:00: dic 00 Sports Medicin e Patellofem Patellofem Problem Active A zalea oral oral 3-05 Orth[facility] osteoarthr Osteoarthr 00:00: di c itis itis 00 Sports Medicin e Lumbar Lumbar Problem Active Amelie disc Disc 9-01 Orth[facility] prolapse Prolapse 00:00: dic with with 00 Sports radiculopa Radiculopa Me dicin thy thy e Lumbar Lumbar Problem Active Amelie 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[facility] ankylosis Ankylosis 00:00: dic 00 Sports Medicin e 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 8-20 Orthop e of lumbar of Lumbar 00:00: dic region Region 00 Sports Medicin e Lumbar Lumbar Problem Active 2017-11 Amelie spondyloli Spondyloli 0-05 Or thope sthesis sthesis 00:00: dic 00 Sports Medicin e Degenerati Degenerati Problem Active A calli on of on of 2-16 Orthope lumbar Lumbar 00:00: dic interverte Interverte 00 Sp orts bral disc bral Disc Medi woodrow e 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 00 Sports Medicin e Pain in Pain in Problem Active Amelie right knee Right Knee 2-16 Or thope 00:00: dic 00 Sports Medicin e Pain of Pain of Problem Active Amelie left hip Left Hip 2-16 Orthop e joint Joint 00:00: dic 00 Sports Medicin e Hypertensi Hypertensi Problem Active 2015-11 A calli ve ve 1-14 Orthope disorder Disorder 00:00: dic 00 Sports Medicin e Lumbar Lumbar Problem Active 2015-11 Amelie spondylosi Spondylosi 1-14 Or thope s s 00:00: dic 00 Sports Medicin e Scoliosis Scoliosis Problem Active 2015-11 Aza isa of lumbar of Lumbar 1-14 Orth ope spine Spine 00:00: dic 00 Sports Medicin e No known No known Disease Metho di active active st problems problems Hospit a l Amnesia Amnesia Problem Active 2022-08-09 Me moria (finding) (finding) 02:58:56 l Active [place] Problem 08/09/2022 [facility] Hyperlipid Hyperlipi Problem Active 2022-08-09 Memoria emia demia 02:58:56 l (disorder) (disorder) He rmann Active Problem 08/09/2022 [facility] Cerebrovas Cerebrova Problem Active 2022-08-09 Memoria cular scular 02:58:56 l disease disease [place] (disorder) (disorder) Active Problem 08/09/2022 [facility] Allergies, Adverse Reactions, Alerts Allergy Allergy Status Severity Reaction(s) Onset Inactive Treating Comm ents Source Name Type Date Date Clinician No Known DA Active U 2021-11 [facility] 0[facility]12 [place] [facility]ie 00:[facility]: [facility] adhesive DA Active [place] BLISTERS 2021-11 [facility] tape 0-12 [place] 00:00: Orthope 00 dic [facility]osp[facility] No Known DA Active U 2021-11 [facility] 0-11 [place] Allergie 00:00: Orthope s 00 dic Hospita l latex DA Active MO rash 2020-11 [facility] 2-17 [place] 00:00: Roe 00 [facility] latex DA Active MO 2020-0 [facility] 9-03 [place] 00:00: Orthope 00 dic Hospita l latex DA Active MO rash 2020-0 [facility] 9-03 [place] 00:00: Orthope 00 dic Hospita l latex DA Active MO 2020-0 [facility] 9- [place] 00:00: Orthope 00 dic Hospita l latex DA Active MO rash 2020-0 [facility] 9-01 [place] 00:00: Orthope 00 dic Hospita l latex DA Active MO 2020-0 [facility] 8-31 [place] 00:00: Orthope 00 dic Hospita l latex DA Active MO rash 2020-0 [facility] 8-31 [place] 00:00: Orthope 00 dic Hospita l Latex Allergy Active 2020-0 Amelie to 8-20 Orth[facility] substanc 00:00: dic e 00 Sports Medicin e adhesive DA Active [place] 2018-0 [facility] 8-20 [place] 00:00: Orthope 00 dic [facility]ita [facility] adhesive DA Active [place] BAD RASH 2018-0 [facility] 8-20 [place] 00:00: Orthope 00 dic Hospita l NO KNOWN Drug Active [facility] [place] [facility] Social History Social Habit Start Date Stop Date Quantity Comments Source Exposure to Yes [facility] SARS-CoV-2 (event) Medica l Branch Social History 2021-08-11 2021-08-11 [facility] kelsea 14:34:17 14:34:17 Sex [birth year] [facility] 00:00:00 00:00:00 Smoking Status Start Date Stop Date Source Never Smoker Amelie [facility] Tobacco smoking consumption [facility] unknown Medications Ordered Filled Start Stop Current Ordering Indication Dosage Frequency Signature Comments Components Source Medication Medication Date Date Medication? Clinician (SIG) Name Name Lizzie Yes 8 mg = 1 Mem oria mg oral 9-30 tab, PO, l tablet 17:11: BID, # 60 Mamadou n 00 tab, 4 Refill(s), Pharmacy: [facility] [id number], 162.56, cm, 08/06/22 11:59:00 CDT, Height, 89.773, kg, 08/06/22 11:59:00 CDT, Weight Razadyne 8 2021-0 Yes 8 mg = 1 Mem oria mg oral 9-30 tab, PO, l tablet 17:11: BID, # 60 Mamadou n 00 tab, 4 Refill(s), Pharmacy: [facility] [id number], 162.56, cm, 08/06/22 11:59:00 CDT, Height, 89.773, kg, 08/06/22 11:59:00 CDT, Weight Razadyne 4 0 Yes 4 mg = 1 Mem oria mg oral 7-21 tab, PO, l tablet 15:51: BID, # 60 Mamadou n 00 tab, 3 Refill(s), Pharmacy: [facility] [id number], 162.56, cm, 05/27/22 10:36:00 CDT, Height, 91.818, kg, 05/27/22 10:36:00 CDT, Weight Razadyne 4 2021-0 Yes 4 mg = 1 Mem oria mg oral 7-21 tab, PO, l tablet 15:51: BID, # 60 Mamadou n 00 tab, 3 Refill(s), Pharmacy: [facility] [id number], 162.56, cm, 05/27/22 10:36:00 CDT, Height, 91.818, kg, 05/27/22 10:36:00 CDT, Weight atorvastati 0 Yes 40 mg = 1 M emoria n 40 mg 7-21 tab, PO, l oral tablet 15:42: Bedtime, # [place] 00 30 tab, 0 Refill(s) Pepcid 0 Yes 20 mg = 1 Memori a 7-21 tab, PO, l 15:42: BID, # 60 [place] 00 tab, 0 Refill(s) PreserVisio 0 Yes 0 Memori a n 7-21 Refill(s) l 15:42: [place] 00 estradiol 2021-0 Yes 0 Memoria 7-21 Refill(s) l 15:42: atorvastati 0 Yes 40 mg = 1 M emoria n 40 mg 7-21 tab, PO, l oral tablet 15:42: Bedtime, # [place] 00 30 tab, 0 Refill(s) Pepcid 2021-0 Yes 20 mg = 1 Memori a 7-21 tab, PO, l 15:42: BID, # 60 00 tab, 0 Refill(s) PreserVisio 0 Yes 0 Memori a n 7-21 Refill(s) l 15:42: estradiol 2021-0 Yes 0 Memoria 7-21 Refill(s) l 15:42: amLODIPine 0 Yes 5 mg = 1 Mem oria 5 mg oral 7-21 tab, PO, l tablet 15:41: Daily, # [place] 00 30 tab, 0 Refill(s) hydrALAZINE 2021-0 Yes 0 Memori a 10 mg oral 7-21 Refill(s) l tablet 15:41: amLODIPine 2021-0 Yes 5 mg = 1 Mem oria 5 mg oral 7-21 tab, PO, l tablet 15:41: Daily, # [place] 00 30 tab, 0 Refill(s) hydrALAZINE 2021-0 Yes 0 Memori a 10 mg oral 7-21 Refill(s) l tablet 15:41: Aricept 5 2021-0 Yes 5 mg = 1 Trev amy mg oral 4-21 tab, PO, l tablet 19:16: Bedtime, # Catherine nn 00 30 tab, 3 Refill(s), Pharmacy: [facility] [id number], 165.1, cm, 02/25/22 13:57:00 CDT, Height, 90.909, kg, 02/25/22 13:57:00 CDT, Weight Aricept 5 2021-0 Yes 5 mg = 1 Trev amy mg oral 4-21 tab, PO, l tablet 19:16: Bedtime, # Catherine nn 00 30 tab, 3 Refill(s), Pharmacy: [facility] [id number], 165.1, cm, 02/25/22 13:57:00 CDT, Height, 90.909, kg, 02/25/22 13:57:00 CDT, Weight No known 2020-11 No [facility] medications 2- ity of 11:45: [address] No known 2020-11 No [facility] medications - ity of 11:45: [address] 2020-11 Yes 0 Memori a n AREDS 2 0-05 Refill(s) l 14:24: PreserVisio 2020-11 Yes 0 Memori a n AREDS 2 0-05 Refill(s) l 14:24: Restasis 2020-11 Yes Q12H, 0 Memori a 0-05 Refill(s) l 14:20: Restasis 2020-11 Yes Q12H, 0 Memori a 0-05 Refill(s) l 14:20: D3 1000 2020-11 Yes 0 Memoria 0-05 Refill(s) l 14:19: Pataday 2020-11 Yes Daily, 0 Memori a 0-05 Refill(s) l 14:19: [place] 00 D3 1000 2020-11 Yes 0 Memoria 0-05 Refill(s) l 14:19: Pataday 2020-11 Yes Daily, 0 Memori a 0-05 Refill(s) l 14:19: Omeprazole 2020-11 Yes 20 mg = 1 Me moria 20 MG 0-05 cap, PO, l Enteric 14:18: Daily, 0 Mamadou n Coated 00 Refill(s) Capsule [Prilosec] Citrucel 2020-11 Yes PO, 0 Memoria 0-05 Refill(s) l 14:18: [place] 00 Omeprazole 2020-11 Yes 20 mg = 1 Me moria 20 MG 0-05 cap, PO, l Enteric 14:18: Daily, 0 Mamadou n Coated 00 Refill(s) Capsule [Prilosec] Citrucel 2020-11 Yes PO, 0 Memoria 0-05 Refill(s) l 14:18: atorvastati 2020-11 No 40 mg = 1 M emoria n 40 mg 0-05 tab, PO, l oral tablet 14:17: Bedtime, # [place] 00 30 tab, 0 Refill(s) atorvastati 2020-11 No 40 mg = 1 M emoria n 40 mg 0-05 tab, PO, l oral tablet 14:17: Bedtime, # [place] 00 30 tab, 0 Refill(s) losartan 2020-11 Yes 25 mg = 1 M [...] tab, PO, l Tablet 14:16: Daily, # [place] 00 30 tab, 0 Refill(s) pravastatin 2020-11 Yes 80 mg = 1 M emoria 80 mg oral 0-05 tab, PO, l tablet 14:16: Bedtime, # Catherine nn 00 30 tab, 0 Refill(s) losartan 2020-11 Yes 25 mg = 1 M emoria mg oral 0-05 tab, PO, l tablet 14:16: Daily, # [place] 00 30 tab, 0 Refill(s) Hydrochloro 2020-11 Yes 12.5 mg = M emoria thiazide 0-05 1 cap, PO, l 12.5 MG 14:16: Daily, # Mamadou n Oral 00 30 cap, 0 Capsule Refill(s) Atenolol 50 2020-11 Yes 50 mg = 1 M emoria MG Oral 0-05 tab, PO, l Tablet 14:16: Daily, # [place] 00 30 tab, 0 Refill(s) pravastatin 2020-11 Yes 80 mg = 1 M emoria 80 mg oral 0-05 tab, PO, l tablet 14:16: Bedtime, # Catherine nn 00 30 tab, 0 Refill(s) gabapentin 2020-11 Yes 300 mg = 1 M emoria 300 MG Oral 0-05 cap, PO, l Capsule 14:14: TID, # 90 Catherine nn 00 cap, 0 Refill(s) gabapentin 2020-11 Yes 300 mg = 1 M emoria 300 MG Oral 0-05 cap, PO, l Capsule 14:14: TID, # 90 Catherine nn 00 cap, 0 Refill(s) gabapentin gabapentin No gabapentin Amelie 300 mg 300 mg 8-11 300 mg Orthope tablet tablet 00:00: tablet dic 00 Sports Medicin e Multiple Multiple No Multiple A zalea Vitamin Vitamin 8-11 Vitamin Orthop e 00:00: dic 00 Sports Medicin e Prilosec 20 Prilosec 20 No Prilosec Amelie mg mg 8-11 20 mg Orthope capsule,del capsule,del 00:00: capsule,de dic ayed ayed 00 layed Sports release release release Medici n e Restasis Restasis No Restasis A zalea MultiDose MultiDose 8-11 MultiDose Orthope 0.05 % eye 0.05 % eye 00:00: 0.05 % eye dic drops drops 00 drops Sports Medicin e atenolol 25 atenolol 25 No atenolol Amelie mg tablet mg tablet 8-11 25 mg Orth ope 00:00: tablet dic 00 Sports Medicin e Citrucel Citrucel No Citrucel A zalea 500 mg 500 mg 8-11 500 mg Orthope tablet tablet 00:00: tablet dic 00 Sports Medicin e gabapentin gabapentin No gabapentin Amelie 300 mg 300 mg 8-11 300 mg Orthope tablet tablet 00:00: tablet dic 00 Sports Medicin e hydrochloro hydrochloro No hydrochlor Amelie thiazide thiazide 8-11 othiazide Or thope 12.5 mg 12.5 mg 00:00: 12.5 mg dic capsule capsule 00 capsule Sports Medicin e losartan 25 losartan 25 No losartan Amelie mg tablet mg tablet 8-11 25 mg Orth ope 00:00: tablet dic 00 Sports Medicin e Multiple Multiple No Multiple A zalea Vitamin Vitamin 8-11 Vitamin Orthop e 00:00: dic 00 Sports Medicin e Prilosec 20 Prilosec 20 No Prilosec Amelie mg mg 8-11 20 mg Orthope capsule,del capsule,del 00:00: capsule,de dic ayed ayed 00 layed Sports release release release Medici n e Restasis Restasis No Restasis A zalea MultiDose MultiDose 8-11 MultiDose Orthope 0.05 % eye 0.05 % eye 00:00: 0.05 % eye dic drops drops 00 drops Sports Medicin e atenolol 25 atenolol 25 No atenolol Amelie mg tablet mg tablet 8-11 25 mg Orth ope 00:00: tablet dic 00 Sports Medicin e Citrucel Citrucel No Citrucel A zalea 500 mg 500 mg 8-11 500 mg Orthope tablet tablet 00:00: tablet dic 00 Sports Medicin e No known No No known Metho di medications 12-[address] 09:51: [facility] 11 l No known No No known Metho di medications 12-[address] 09:51: s Hospita 11 l Mobic 7.5 Mobic 7.5 2017-11 No Mobic 7.5 Amelie mg tablet 1 mg tablet 1 0-05 mg tablet Orthope PO Q 6 PRN PO Q 6 PRN 00:00: 1 PO Q 6 dic 00 PRN Sports Medicin e Mobic 7.5 Mobic 7.5 2017-11 No Mobic 7.5 Amelie mg tablet 1 mg tablet 1 0-05 mg tablet Orthope PO Q 6 PRN PO Q 6 PRN 00:00: 1 PO Q 6 dic 00 PRN Sports Medicin e Mobic 7.5 Mobic 7.5 2017-11 No Mobic 7.5 Amelie mg tablet 1 mg tablet 1 0-05 mg tablet Orthope PO Q 6 PRN PO Q 6 PRN 00:00: 1 PO Q 6 dic 00 PRN Sports Medicin e Mobic 7.5 Mobic 7.5 2017-11 No Mobic 7.5 Amelie mg tablet 1 mg tablet 1 0-05 mg tablet Orthope PO Q 6 PRN PO Q 6 PRN 00:00: 1 PO Q 6 dic 00 PRN Sports Medicin e Mobic 7.5 Mobic 7.5 2017-11 No Mobic 7.5 Amelie mg tablet 1 mg tablet 1 0-05 mg tablet Orthope PO Q 6 PRN PO Q 6 PRN 00:00: 1 PO Q 6 dic 00 PRN Sports Medicin e tramadol 50 tramadol 50 2017-0 No tramadol Amelie mg tablet mg tablet 9-12 50 mg Orth ope TAKE ONE TAKE ONE 00:00: tablet dic TABLET BY TABLET BY 00 TAKE ONE S ports MOUTH EVERY MOUTH EVERY TABLET BY Medicin 6 HOURS 6 HOURS MOUTH e NEEDED FOR NEEDED FOR EVERY 6 PAIN PAIN HOURS NEEDED FOR PAIN tramadol 50 tramadol 50 2017-0 No tramadol Amelie mg tablet mg tablet 9-12 50 mg Orth ope TAKE ONE TAKE ONE 00:00: tablet dic TABLET BY TABLET BY 00 TAKE ONE S ports MOUTH EVERY MOUTH EVERY TABLET BY Medicin 6 HOURS 6 HOURS MOUTH e NEEDED FOR NEEDED FOR EVERY 6 PAIN PAIN HOURS NEEDED FOR PAIN tramadol 50 tramadol 50 2017-0 No tramadol Amelie mg tablet mg tablet 9-12 50 mg Orth ope TAKE ONE TAKE ONE 00:00: tablet dic TABLET BY TABLET BY 00 TAKE ONE S ports MOUTH EVERY MOUTH EVERY TABLET BY Medicin 6 HOURS 6 HOURS MOUTH e NEEDED FOR NEEDED FOR EVERY 6 PAIN PAIN HOURS NEEDED FOR PAIN tramadol 50 tramadol 50 0 No tramadol Amelie mg tablet mg tablet 9-12 50 mg Orth ope TAKE ONE TAKE ONE 00:00: tablet dic TABLET BY TABLET BY 00 TAKE ONE S ports MOUTH EVERY MOUTH EVERY TABLET BY Medicin 6 HOURS 6 HOURS MOUTH e NEEDED FOR NEEDED FOR EVERY 6 PAIN PAIN HOURS NEEDED FOR PAIN Medrol Medrol 2015-11 No Medrol Amelie (Juan R) 4 mg (Juan R) 4 mg 1-14 (Juan R) 4 mg Orthope tablets in tablets in 00:00: tablets in dic a dose pack a dose pack 00 a dose Sports take as take as pack take [facility] woodrow directed directed as e directed Medrol Medrol 2015-11 No Medrol Amelie (Juan R) 4 mg (Juan R) 4 mg 1-14 (Juan R) 4 mg Orthope tablets in tablets in 00:00: tablets in dic a dose pack a dose pack 00 a dose Sports take as take as pack take [facility] woodrow directed directed as e directed Medrol Medrol 2015-11 No Medrol Amelie (Juan R) 4 mg (Juan R) 4 mg 1-14 (Juan R) 4 mg Orthope tablets in tablets in 00:00: tablets in dic a dose pack a dose pack 00 a dose Sports take as take as pack take Medi woodrow directed directed as e directed Medrol Medrol 2016- No Medrol Amelie (Juan R) 4 mg (Juan R) 4 mg 1-14 (Juan R) 4 mg Orthope tablets in tablets in 00:00: tablets in dic a dose pack a dose pack 00 a dose Sports take as take as pack take Medi woodrow directed directed as e directed pravastatin pravastatin No pravastati Amelie 80 mg 80 mg n 80 mg [facility] tablet RX tablet RX tablet RX dic by other MD by other MD by other Sports Medicin eliceo prednisolon prednisolon No prednisolo Amelie e acetate 1 e acetate 1 ne acetate Orthope % eye % eye 1 % eye dic drops,suspe drops,suspe drops,susp Sports nsion nsion ension Medicin e prednisone prednisone No prednisone Amelie 10 mg 10 mg 10 mg Orthope tablet tablet tablet dic Sports Medicin e Restasis Restasis No Restasis Aza isa 0.05 % eye 0.05 % eye 0.05 % eye Orthope drops in a drops in a drops in a dic dropperette dropperette dropperett Sports RX by other RX by other e RX by Alexandra BILLY MD other MD fenton sulfamethox sulfamethox No sulfametho Amelie azole 800 azole 800 xazole 800 Orthope mg-trimetho mg-trimetho mg-trimeth dic prim 160 mg prim 160 mg oprim 160 Sports tablet tablet mg tablet Medici n e tramadol 50 tramadol 50 No tramadol Amelie mg tablet mg tablet 50 mg Orth ope TAKE ONE TAKE ONE tablet dic TABLET BY TABLET BY TAKE ONE S ports MOUTH EVERY MOUTH EVERY TABLET BY Medicin 6 HOURS 6 HOURS MOUTH e NEEDED FOR NEEDED FOR EVERY 6 PAIN PAIN HOURS NEEDED FOR PAIN triamcinolo triamcinolo No triamcinol Amelie ne ne one Orthope acetonide acetonide acetonide dic 0.5 % 0.5 % 0.5 % Sports topical topical topical Medici n ointment ointment ointment e venlafaxine venlafaxine No venlafaxin Amelie ER 37.5 mg ER 37.5 mg e ER 37.5 Orthope capsule,ext capsule,ext mg d ic ended ended capsule,ex Sports release 24 release 24 tended M edicin hr hr release 24 e hr amlodipine amlodipine No amlodipine Amelie 5 5 5 Orthope mg-valsarta mg-valsarta mg-valsart dic n 160 mg n 160 mg an 160 mg Sp orts tablet RX tablet RX tablet RX Medicin by other MD by other MD by other e atenolol 50 atenolol 50 No atenolol Amelie mg tablet mg tablet 50 mg Orth ope RX by other RX by other tablet RX dic MD BILLY by other Sports MD Alexandra fenton Celebrex Celebrex No Celebrex Aza isa 200 mg 200 mg 200 mg Orthope capsule 1 capsule 1 capsule 1 dic PO BID PO BID PO BID Sports Medicria fenton gabapentin gabapentin No gabapentin Amelie 100 mg 100 mg 100 mg Orthope capsule RX capsule RX capsule RX dic by other MD by other MD by other Sports MD Alexandra fenton hydrochloro hydrochloro No hydrochlor Amelie thiazide thiazide othiazide Or thope 12.5 mg 12.5 mg 12.5 mg dic tablet RX tablet RX tablet RX Sports by other MD by other MD by other Alexandra fenton Nexium Nexium No Nexium Amelie Packet 10 Packet 10 Packet 10 Orthope mg granules mg granules mg d ic delayed delayed granules Sport s release for release for delayed Medicin susp RX by susp RX by release e other MD rushing MD for susp RX by other MD Pataday 0.2 Pataday 0.2 No Pataday Amelie % eye drops % eye drops 0.2 % eye Orthope RX by other RX by other drops RX dic MD BILLY by other Sports MD Alexandra fenton pravastatin pravastatin No pravastati Amelie 80 mg 80 mg n 80 mg Orthope tablet RX tablet RX tablet RX dic by other MD by other MD by other Sports MD Alexandra fenton Restasis Restasis No Restasis Aza isa 0.05 % eye 0.05 % eye 0.05 % eye Orthope drops in a drops in a drops in a dic dropperette dropperette dropperett Sports RX by other RX by other e RX by Alexandra fenton amlodipine amlodipine No amlodipine Amelie 5 5 5 Orthope mg-valsarta mg-valsarta mg-valsart dic n 160 mg n 160 mg an 160 mg Sp orts tablet RX tablet RX tablet RX Medicin by other MD by other MD by other e atenolol 50 atenolol 50 No atenolol Amelie mg tablet mg tablet 50 mg Orth ope RX by other RX by other tablet RX dic MD BILLY by other Sports MD Alexandra fenton Celebrex Celebrex No Celebrex Aza isa 200 mg 200 mg 200 mg Orthope capsule 1 capsule 1 capsule 1 dic PO BID PO BID PO BID Sports Medicin e gabapentin gabapentin No gabapentin Amelie 100 mg 100 mg 100 mg Orthope capsule RX capsule RX capsule RX dic by other MD by other MD by other Sports MD Alexandra fenton hydrochloro hydrochloro No hydrochlor Amelie thiazide thiazide othiazide Or thope 12.5 mg 12.5 mg 12.5 mg dic tablet RX tablet RX tablet RX Sports by other MD by other MD by other Alexandra fenton Nexium Nexium No Nexium Amelie Packet 10 Packet 10 Packet 10 Orthope mg granules mg granules mg d ic delayed delayed granules Sport s release for release for delayed Medicin susp RX by susp RX by release e сергей rushing MD for susp RX by other Pataday 0.2 Pataday 0.2 No Pataday Amelie % eye drops % eye drops 0.2 % eye Orthope RX by other RX by other drops RX dic MD BILLY by other Sports MD Alexandra fenton pravastatin pravastatin No pravastati Amelie 80 mg 80 mg n 80 mg Orthope tablet RX tablet RX tablet RX dic by other MD by other MD by other Sports Medicin e Restasis Restasis No Restasis Aza isa 0.05 % eye 0.05 % eye 0.05 % eye Orthope drops in a drops in a drops in a dic dropperette dropperette dropperett Sports RX by other RX by other e RX by Alexandra fenton amlodipine amlodipine No amlodipine Amelie 5 5 5 Orthope mg-valsarta mg-valsarta mg-valsart dic n 160 mg n 160 mg an 160 mg Sp orts tablet RX tablet RX tablet RX Medicin by other MD by other MD by other eliceo BILLY atenolol 50 atenolol 50 No atenolol Amelie mg tablet mg tablet 50 mg Orth ope RX by other RX by other tablet RX dic MD BILLY by other Sports MD [place] fenton Celebrex Celebrex No Celebrex Aza isa 200 mg 200 mg 200 mg Orthope capsule 1 capsule 1 capsule 1 dic PO BID PO BID PO BID Sports Medicin e gabapentin gabapentin No gabapentin Amelie 100 mg 100 mg 100 mg Orthope capsule RX capsule RX capsule RX dic by other MD by other MD by other Sports Medicin e hydrochloro hydrochloro No hydrochlor Amelie thiazide thiazide othiazide Or thope 12.5 mg 12.5 mg 12.5 mg dic tablet RX tablet RX tablet RX Sports by other MD by other MD by other Alexandra fenton Nexium Nexium No Nexium Amelie Packet 10 Packet 10 Packet 10 Orthope mg granules mg granules mg d ic delayed delayed granules Sport s release for release for delayed Medicin susp RX by susp RX by release e сергей rushing MD for susp RX by other MD Pataday 0.2 Pataday 0.2 No Pataday Amelie % eye drops % eye drops 0.2 % eye Orthope RX by other RX by other drops RX dic MD BILLY by other Sports MD Alexandra fenton pravastatin pravastatin No pravastati Amelie 80 mg 80 mg n 80 mg Orth[facility] tablet RX tablet RX tablet RX dic by other MD by other MD by other Sports Medicin e Restasis Restasis No Restasis Aza isa 0.05 % eye 0.05 % eye 0.05 % eye Orthope drops in a drops in a drops in a dic dropperette dropperette dropperett Sports RX by other RX by other e RX by Alexandra fenton amlodipine amlodipine No amlodipine Amelie 5 5 5 Orthope mg-valsarta mg-valsarta mg-valsart dic n 160 mg n 160 mg an 160 mg Sp orts tablet RX tablet RX tablet RX Medicin by other MD by other MD by other e atenolol 50 atenolol 50 No atenolol Amelie mg tablet mg tablet 50 mg Orth ope RX by other RX by other tablet RX dic MD BILLY by other Sports MD Alexandra fenton Celebrex Celebrex No Celebrex Aza isa 200 mg 200 mg 200 mg Orthope capsule 1 capsule 1 capsule 1 dic PO BID PO BID PO BID Sports Medicin e gabapentin gabapentin No gabapentin Amelie 100 mg 100 mg 100 mg Orthope capsule RX capsule RX capsule RX dic by other MD by other MD by other Sports MD Canoin eliceo hydrochloro hydrochloro No hydrochlor Amelie thiazide thiazide othiazide Or thope 12.5 mg 12.5 mg 12.5 mg dic tablet RX tablet RX tablet RX Sports by other MD by other MD by other Alexandra fenton Nexium Nexium No Nexium [facility]ie Packet 10 Packet 10 Packet 10 [facility] mg granules mg granules mg d ic delayed delayed granules Sport s release for release for delayed Medicin susp RX by susp RX by release e сергей rushing MD for susp RX by other Pataday 0.2 Pataday 0.2 No Pataday Amelie % eye drops % eye drops 0.2 % eye Orthope RX by other RX by other drops RX dic MD by other Sports MD Alexandra fenton pravastatin pravastatin No pravastati Amelie 80 mg 80 mg n 80 mg Orth[facility] tablet RX tablet RX tablet RX dic by other MD by other MD by other Sports Medicin eliceo Restasis Restasis No Restasis Aza isa 0.05 % eye 0.05 % eye 0.05 % eye Orthope drops in a drops in a drops in a dic dropperette dropperette dropperett Sports RX by other RX by other e RX by Medicria fenton Zofran 4 mg Zofran 4 mg No 1 Q6H Zofran 4 Am[facility]ie tablet Take tablet Take mg tablet Orthope 1 tablet 1 tablet Take 1 dic every 6 every 6 tablet Sports hours by hours by every 6 Medi woodrow oral route oral route hours by e as needed as needed oral route for nausea. for nausea. as needed for nausea. amlodipine amlodipine No amlodipine Amelie 5 mg tablet 5 mg tablet 5 mg O rthope tablet dic Sports Medicin e amlodipine amlodipine No amlodipine Amelie 5 5 5 Orthope mg-valsarta mg-valsarta mg-valsart dic n 160 mg n 160 mg an 160 mg Sp orts tablet RX tablet RX tablet RX Medicin by other MD by other MD by other e amoxicillin amoxicillin No amoxicilli Amelie 500 mg 500 mg n 500 mg Orthope capsule capsule capsule dic Sports Medicin e atenolol 50 atenolol 50 No atenolol Amelie mg tablet mg tablet 50 mg Orth ope RX by other RX by other tablet RX dic MD MD by other Sports MD Medicin e atorvastati atorvastati No atorvastat Amelie n 40 mg n 40 mg in 40 mg Ortho pe tablet tablet tablet dic Sports Medicin e azelaic azelaic No azelaic Amelie acid 15 % acid 15 % acid 15 % Orthope topical gel topical gel topical dic gel Sports Medicin e azithromyci azithromyci No azithromyc Amelie n 250 mg n 250 mg in 250 mg Or thope tablet tablet tablet dic Sports Medicin e benzonatate benzonatate No benzonatat Amelie 100 mg 100 mg e 100 mg Orthope capsule capsule capsule dic Sports Medicin e celecoxib celecoxib No celecoxib Amelie 200 mg 200 mg 200 mg [facility] capsule 1 capsule 1 capsule 1 dic PO BID PO BID PO BID Sports Medicin e donepezil 5 donepezil 5 No donepezil Amelie mg tablet mg tablet 5 mg Ortho pe tablet dic Sports Medicin e doxycycline doxycycline No doxycyclin Amelie hyclate 100 hyclate 100 e hyclate Orth[facility] mg capsule mg capsule 100 mg d ic capsule Sports Medicin e duloxetine duloxetine No duloxetine Am[facility]ie 20 mg 20 mg 20 mg Orth[facility] capsule,del capsule,del capsule,de dic ayed ayed layed Sports release release release Medici n e erythromyci erythromyci No erythromyc Am[facility]ie n 5 mg/gram n 5 mg/gram in 5 O rthope (0.5 %) eye (0.5 %) eye mg/gram dic ointment ointment (0.5 %) Spor ts eye Medicin ointment e estradiol estradiol No estradiol Amelie 0.01% (0.1 0.01% (0.1 0.01% (0.1 Orthope mg/gram) mg/gram) mg/gram) dic vaginal vaginal vaginal Sports cream cream cream Medicin e estradiol estradiol No estradiol Amelie 10 mcg 10 mcg 10 mcg Orthope vaginal vaginal vaginal dic tablet tablet tablet Sports Medicin e No known No [facility] medications [facility] atenolol 50 atenolol 50 No 1 Q1D atenolol [facility] mg tablet mg tablet 50 mg Medi jairo Take 1 Take 1 tablet tablet tablet Take 1 every day every day tablet by oral by oral every day route. route. by oral route. atorvastati atorvastati No 1 Q1D atorvastat [facility] n 40 mg n 40 mg in 40 mg Medic al tablet Take tablet Take tablet 1 tablet 1 tablet Take 1 every day every day tablet by oral by oral every day route. route. by oral route. Citrucel Citrucel No Citrucel Valerie via Medical gabapentin gabapentin No 1capsul TID gabapentin [facility] 300 mg 300 mg e(s) 300 mg Medical capsule capsule capsule Take 1 Take 1 Take 1 capsule 3 capsule 3 capsule 3 times a day times a day times a by oral by oral day by route. route. oral route. galantamine galantamine No 1 BID galantamin [facility] 4 mg tablet 4 mg tablet e 4 mg Medical Take 1 Take 1 tablet tablet tablet Take 1 twice a day twice a day tablet by oral by oral twice a route. route. day by oral route. hydralazine hydralazine No 1 BID hydralazin [facility] 10 mg 10 mg e 10 mg Medical tablet Take tablet Take tablet 1 tablet 1 tablet Take 1 twice a day twice a day tablet by oral by oral twice a route. route. day by oral route. losartan losartan No 1 Q1D losartan Valerie via 100 mg 100 mg 100 mg Medical tablet Take tablet Take tablet 1 tablet 1 tablet Take 1 every day every day tablet by oral by oral every day route. route. by oral route. nystatin-tr nystatin-tr No nystatin-t [facility] iamcinolone iamcinolone [facility] 100,000 100,000 ne 100,000 unit/gram-0 unit/gram-0 unit/gram- .1 % .1 % 0.1 % topical topical topical ointment ointment ointment APPLY TO APPLY TO APPLY TO THE THE THE AFFECTED AFFECTED AFFECTED AREA(S) BY AREA(S) BY AREA(S) BY TOPICAL TOPICAL TOPICAL ROUTE 2 ROUTE 2 ROUTE 2 TIMES PER TIMES PER TIMES PER DAY DAY DAY Pataday Pataday No Pataday [facility] Once Daily Once Daily Once Daily Medical Relief Relief Relief Pepcid Pepcid No Pepcid [facility] PreserVisio PreserVisio No PreserVisi [facility] n AREDS-2 n AREDS-2 on AREDS-2 Medical Restasis Restasis No Restasis Valerie via 0.05 % eye 0.05 % eye 0.05 % eye Medical drops in a drops in a drops in a dropperette dropperette dropperett INSTILL 1 INSTILL 1 e INSTILL DROP INTO DROP INTO 1 DROP AFFECTED AFFECTED INTO EYE(S) BY EYE(S) BY AFFECTED OPHTHALMIC OPHTHALMIC EYE(S) BY ROUTE EVERY ROUTE EVERY OPHTHALMIC 12 HOURS 12 HOURS ROUTE EVERY 12 HOURS Vitamin D3 Vitamin D3 No Vitamin D3 [facility] fluconazole fluconazole No fluconazol Amelie 150 mg 150 mg e 150 mg [facility] tablet tablet tablet dic [facility] e gabapentin gabapentin No gabapentin Am[facility]ie 100 mg 100 mg 100 mg [facility] capsule RX capsule RX capsule RX dic by other MD by other MD by other Sports Medicin e gabapentin gabapentin No gabapentin Am[facility]ie 300 mg 300 mg 300 mg [facility] capsule capsule capsule dic Uvinumin e galantamine galantamine No galantamin Amelie 4 mg tablet 4 mg tablet e 4 mg Orth[facility] tablet dic Uvinumin e galantamine galantamine No galantamin Amelie 8 mg tablet 8 mg tablet e 8 mg [facility] tablet dic Uvinumin e hydralazine hydralazine No hydralazin Am[facility]ie 10 mg 10 mg e 10 mg [facility] tablet tablet tablet dic [facility]in e hydrochloro hydrochloro No hydrochlor Amelie thiazide thiazide othiazide Or thope 12.5 mg 12.5 mg 12.5 mg dic capsule capsule capsule [facility] Medicin e hydrochloro hydrochloro No hydrochlor Amelie thiazide thiazide othiazide Or thope 12.5 mg 12.5 mg 12.5 mg dic tablet RX tablet RX tablet RX Sports by other MD by other MD by other Medicin MD fenton hydrochloro hydrochloro No hydrochlor Amelie thiazide 25 thiazide 25 othiazide [facility] mg tablet mg tablet 25 mg dic tablet Sports Medicin e hydrocodone hydrocodone No hydrocodon Amelie 10 10 e 10 [facility] mg-acetamin mg-acetamin mg-acetami dic ophen 325 ophen 325 nophen 325 Sports mg tablet mg tablet mg tablet Medicin e levocetiriz levocetiriz No levocetiri Amelie ine 5 mg ine 5 mg zine 5 mg Or thope tablet tablet tablet dic [facility]in e losartan losartan No losartan Aza isa 100 mg 100 mg 100 mg [facility] tablet tablet tablet dic Sports Medicin e losartan 25 losartan 25 No losartan Amelie mg tablet mg tablet 25 mg Orth ope tablet dic Sports Medicin e losartan 50 losartan 50 No losartan Amelie mg tablet mg tablet 50 mg Orth ope tablet dic Sports Medicin e meloxicam meloxicam No meloxicam Amelie 15 mg 15 mg 15 mg [facility] tablet tablet tablet dic Sports Medicin e methylpredn methylpredn No methylpred Amelie isolone 4 isolone 4 nisolone 4 [facility] mg tablets mg tablets mg tablets dic in a dose in a dose in a dose Sports pack take pack take pack take Medicin as directed as directed as e directed Nexium Nexium No Nexium Amelie Packet 10 Packet 10 Packet 10 [facility] mg granules mg granules mg d ic delayed delayed granules Sport s release for release for delayed Medicin susp RX by susp RX by release e other MD other MD for susp RX by other MD nystatin-tr nystatin-tr No nystatin-t Amelie iamcinolone iamcinolone riamcinolo [facility] 100,000 100,000 ne 100,000 dic unit/gram-0 unit/gram-0 unit/gram- Sports .1 % .1 % 0.1 % Medicin topical topical topical e ointment ointment ointment ondansetron ondansetron No ondansetro Am[facility]ie HCl 4 mg HCl 4 mg n HCl 4 mg O rthope tablet Take tablet Take tablet dic 1 tablet 1 tablet Take 1 Sport s every 6 every 6 tablet Medicin hours by hours by every 6 e oral route oral route hours by as needed as needed oral route for nausea. for nausea. as needed for nausea. Pataday 0.2 Pataday 0.2 No Pataday Amelie % eye drops % eye drops 0.2 % eye [facility] RX by other RX by other drops RX dic MD MD by other Sports MD Medicin e Immunizations Ordered Immunization Filled Immunization Date Status Commen ts Source Name Name pneumococcal pneumococcal 2022-03-30 Completed Am[facility]ie polysaccharide PPV23 polysaccharide PPV23 00:00:00 [facility] Medicin e pneumococcal pneumococcal 2022-03-30 Completed Amelie polysaccharide PPV23 polysaccharide PPV23 00:00:00 [facility] Medic[facility] e pneumococcal pneumococcal 2022-03-30 Completed Am[facility]ie polysaccharide PPV23 polysaccharide PPV23 00:00:00 [facility] e pneumococcal pneumococcal 2022-03-30 Completed Amelie polysaccharide PPV23 polysaccharide PPV23 00:00:00 [facility] Medicin e pneumococcal pneumococcal 2022-03-30 Completed Amelie polysaccharide PPV23 polysaccharide PPV23 00:00:00 [facility] Sports Medicin e COVID-19 COVID-19 2021-09-14 Completed [facility] (SARS-COV-2) (SARS-COV-2) 00:00:00 vaccine, unspecified vaccine, unspecified PFIZER COVID-19 MRNA 2020-12-24 Completed [facility]00 [facility] PFIZER COVID-19 MRNA 2020-12-24 Completed [facility] 00:00:00 Hospital COVID-19 COVID-19 2020-12-24 Completed [facility] (SARS-COV-2) (SARS-COV-2) 00:00:00 vaccine, unspecified vaccine, unspecified PFIZER COVID-19 MRNA 2020-12-24 Completed [facility] 00:00:00 Hospital PFIZER COVID-19 MRNA 2020-12-03 Completed [facility] VACCINATION 00:00:00 Hospital PFIZER COVID-19 MRNA 2020-12-03 Completed [facility] VACCINATION 00:00:00 [facility] PFIZER COVID-19 MRNA 2020-12-03 Completed [facility] VACCINATION 00:00:00 Hospital COVID-19 COVID-19 2020-11-27 Completed [facility] (SARS-COV-2) (SARS-COV-2) 00:00:00 vaccine, unspecified vaccine, unspecified Zoster Vaccine 2020-09-25 Completed [facility] Zoster Vaccine 2020-09-25 Completed [facility]:00 [facility] Zoster Vaccine 2020-09-25 Completed [facility] 00:00:00 Hospital FLUZONE HIGH-DOSE PF 2020-08-25 Completed [facility] 00:00:00 Hospital FLUZONE HIGH-DOSE PF 2020-08-25 Completed [facility] 00:00:00 Hospital FLUZONE HIGH-DOSE PF 2020-08-25 Completed [facility] 00:00:00 Hospital Zoster Vaccine 2020-07-28 Completed [facility] 00:00:00 [facility] Zoster Vaccine 2020-07-28 Completed [facility] 00:00:00 [facility] Zoster Vaccine 2020-07-28 Completed [facility] 00:[facility] Hospital Vital Signs Vital Name Observation Time Observation Value Comments Source Height 2022-09-03 00:00:00 65 [in_i] [facility] BMI (Body Mass 2022-09-03 00:00:00 32.9 kg/m2 [facility] Index) Sports Medicine Body Weight 2022-09-03 00:00:00 198 [lb_av] [facility] Height 2022-06-25 00:00:00 65 [in_i] [facility] BMI (Body Mass 2022-06-25 00:00:00 32.9 kg/m2 [facility] Index) Sports Medicine Body Weight 2022-06-25 00:00:00 198 [lb_av] [facility] Height 2022-06-09 00:00:00 65 [in_i] [facility] BMI (Body Mass 2022-06-09 00:00:00 32.9 kg/m2 [facility] Index) Sports Medicine Body Weight 2022-06-09 00:00:00 198 [lb_av] [facility] BP Diastolic 2022-06-03 00:00:00 82 mm[Hg] [facility] Height 2022-06-03 00:00:00 65 [in_i] Rachael Loredo edical BMI (Body Mass 2022-06-03 00:00:00 33.4 [facility] BP Systolic 2022-06-03 00:00:00 130 mm[Hg] Rachael Loredo edical Body Weight 2022-06-03 00:00:00 200.6 [lb_av] [facility] Height 2022-06-02 00:00:00 65 [in_i] [facility] BMI (Body Mass 2022-06-02 00:00:00 32.9 kg/m2 [facility] Orthopedic Index) Sports Medicine Body Weight 2022-06-02 00:00:00 198 [lb_av] [facility] Systolic (mm Hg) 2022-08-06 16:59:00 Trev [facility] [place] Diastolic (mm Hg) 2022-08-06 16:59:00 Mem [facility] [place] Heart Rate 2022-08-06 16:59:00 [facility] Respitory Rate 2022-08-06 16:59:00 [facility] [place] Height 2022-08-06 16:59:00 162.56 cm [facility] Weight 2022-08-06 16:59:00 [facility] BMI Calculated 2022-08-06 16:59:00 [facility] [place] Systolic (mm Hg) 2022-05-27 15:23:00 [facility] [place] Diastolic (mm Hg) 2022-05-27 15:23:00 Mem [facility] [place] Heart Rate 2022-05-27 15:23:00 [facility] Respitory Rate 2022-05-27 15:23:00 [facility] [place] Height 2022-05-27 15:23:00 162.56 cm [facility] [place] Weight 2022-05-27 15:23:00 [facility] BMI Calculated 2022-05-27 15:23:00 [facility] [place] Systolic (mm Hg) 2022-02-25 18:50:00 [facility] [place] Diastolic (mm Hg) 2022-02-25 18:50:00 Mem [facility] [place] Heart Rate 2022-02-25 18:50:00 [facility] Respitory Rate 2022-02-25 18:50:00 [facility] [place] Height 2022-02-25 18:50:00 165.1 cm [facility] Weight 2022-02-25 18:50:00 [facility] BMI Calculated 2022-02-25 18:50:00 [facility] [place] Systolic (mm Hg) 2021-09-04 16:10:00 [facility] [place] Diastolic (mm Hg) 2021-09-04 16:10:00 [facility] [place] Heart Rate 2021-09-04 16:10:00 [facility] Respitory Rate 2021-09-04 16:10:00 [facility] [place] Height 2021-09-04 16:10:00 162.56 cm [facility] [place] Weight 2021-09-04 16:10:00 [facility] BMI Calculated 2021-09-04 16:10:00 [facility] [place] Systolic (mm Hg) 2021-08-11 13:57:00 [facility] [place] Diastolic (mm Hg) 2021-08-11 13:57:00 [facility] [place] Heart Rate 2021-08-11 13:57:00 [facility] Respitory Rate 2021-08-11 13:57:00 Gustabo Chin Height 2021-08-11 13:57:00 162.56 cm [facility] Weight 2021-08-11 13:57:00 [facility] BMI Calculated 2021-08-11 13:57:00 Gustabo Chin Procedures Procedure Date / Time Performing Clinician Source Performed XR, knee, 3 view 2022-06-25 00:00:00 [facility] MRI, shoulder, w/o 2022-06-02 00:00:00 [facility] Or thopedic contrast Sports Medicine Bladder Surgery 2019-11-07 00:00:00 [facility] Correction of Scoliosis 2017-11-07 00:00:00 [facility] Hysterectomy with 2001-11-07 00:00:00 [facility] Oopherectomy (Ovaries Removed) Tubal Ligation [facility] Lumbar discectomy [facility] Plan of Care Planned Activity Planned Date Details Comments Source Future Scheduled Test 2022-09-09 HEPATITIS B VACCINES [facility] 00:31:16 (1 of 3 - 3-dose series) [code = HEPATITIS B VACCINES (1 of 3 - 3-dose series)] Future Scheduled Test 2022-09-09 65+ PNEUMOCOCCAL [facility] 00:31:16 VACCINE (1 - PCV) [code = 65+ PNEUMOCOCCAL VACCINE (1 - PCV)] Future Scheduled Test 2022-09-09 COVID-19 VACCINE (3 - [facility] 00:31:16 Booster for Pfizer series) [code = COVID-19 VACCINE (3 - Booster for Pfizer series)] Future Scheduled Test 2022-09-09 INFLUENZA VACCINE [facility] 00:31:16 [code = INFLUENZA VACCINE] Future Scheduled Test 2022-07-29 HEPATITIS B VACCINES [facility] 00:00:13 (1 of 3 - 3-dose series) [code = HEPATITIS B VACCINES (1 of 3 - 3-dose series)] Future Scheduled Test 2022-07-29 65+ PNEUMOCOCCAL [facility] 00:00:13 VACCINE (1 - PCV) [code = 65+ PNEUMOCOCCAL VACCINE (1 - PCV)] Future Scheduled Test 2022-07-29 COVID-19 VACCINE (3 - [facility] 00:00:13 Booster for Pfizer series) [code = COVID-19 VACCINE (3 - Booster for Pfizer series)] Future Scheduled Test 2022-07-29 INFLUENZA VACCINE [facility] 00:00:13 [code = INFLUENZA VACCINE] Diagnostic Test 2022-06-03 [place] IgE Ab [facility] Pending 00:00:00 [Units/volume] in Serum [code = 6195-2] Future Scheduled Test 65+ PNEUMOCOCCAL [facility] VACCINE (1 of 1 - PPSV23) [code = 65+ PNEUMOCOCCAL VACCINE (1 of 1 - PPSV23)] Future Scheduled Test SHINGLES VACCINES [facility] (#2) [code = SHINGLES VACCINES (#2)] Future Scheduled Test INFLUENZA VACCINE [facility] [code = INFLUENZA VACCINE] Future Appointment 2024-06-03 Maricarmen Hernandez, [address] [facility] 00:00:00 [place] [address] Future Appointment 2022-10-04 Joby Ulrich [address] [facility] 11:00:00 [facility] [address] Instructions [facility] Orthoped ic Sports Medicine Encounters Start End Encounter Admission Attending Care Care Encounter Source Date/Time Date/Time Type Type Clinicians Facility Department ID 2022-11-09 2022-11-09 Outpatient SARITA STEIN [id number] [facility] 11:15:00 11:15:00 05 madeleine Malhotra 2022-11-09 2022-11-09 Outpatient MEAGAN STEIN [id number] [facility] 11:15:00 11:15:00 05 madeleine Malhotra 2022-09-03 2022-09-03 Outpatient FOG_Stuckey AOSM AOSM [id number] Amelie 00:00:00 00:00:00 _Linda [id number] Ortho pe dic Sports Medicin e 2022-09-03 2022-09-03 Joby Braxton AOS[facility] [place] - [place] [id number] Amelie 00:00:00 00:00:00 Lorraine Ulrich MD: [id number] FOG_Ofc dic [facility] [place] [address] , Ph. [phone] 2022-08-18 2022-08-19 Outpatient RONNIE MeyerALL OBSE [id number] [facility] 05:10:00 11:46:00 [facility]y [facility] 2022-08-19 2022-08-19 Outpatient FOG_Stuckey AOSM AOSM [id number] Amelie 00:00:00 00:00:00 _Linda [id number] Ortho pe dic Sports Medicin e 2022-08-18 2022-08-18 Joby N [facility] [place] - [place] [id number] Am[facility]ie 00:00:00 00:00:00 Lorraine Ulrich MD: [id number] FOG_Surgery dic [facility] e [address] , Ph. [phone] 2022-08-06 2022-08-07 Outpatient nullFlavo MNA [id number] [facility] 16:45:00 04:59:59 r Neurology 04 l Rachel Malhotra 2022-08-06 2022-08-07 Outpatient nullFlavo MNA [id number] [facility] 16:45:00 04:59:59 r Neurology 04 l Rachel Malhotra 2022-08-06 2022-08-06 Outpatient GEORGE Burger MHMISCHER [id number] 11:45:00 23:59:59 Dylan Terrance Swain 2022-08-06 2022-08-06 Outpatient MHIE ONIELIE [id number] [facility] 11:45:00 11:45:00 04 madeleine Malhotra 2022-07-30 2022-07-30 Outpatient SergKAY burrows LABO [id number] [facility] 16:09:00 16:09:[address] [place] [address] 2022-07-22 2022-07-22 Outpatient FOG_Stuckey AOSM AOSM [id number] Amelie 00:00:00 00:00:00 _Linda [id number] Ortho pe dic Sports Medicin e 2022-07-07 2022-07-07 Outpatient FOG_Stuckey AOSM AOSM [id number] Amelie 00:00:00 00:00:00 _Linda [id number] Ortho pe dic Sports Medicin e 2022-06-25 2022-06-25 Outpatient FOG_Stuckey AOSM AOSM [id number] Amelie 00:00:00 00:00:00 _Linda [id number] Ortho pe dic Sports Medicin e 2022-06-25 2022-06-25 Joby N AOSM [place] - Ortho [id number] Am[facility]ie 00:00:00 00:00:00 Lorraine Ulrich MD: 7401 FOG_Ofc dic [facility] Spo [facility] [place] [address] , Ph. [phone] 2022-06-25 2022-06-25 Outpatient Serg, AOSM AOSM [id number] 00:00:00 00:00:00 Joby Braxton [id number] 2022-06-09 2022-06-09 Outpatient FOG_Stuckey AOSM AOSM [id number] Am[facility]ie 00:00:00 00:00:00 _Linda [id number] Ortho pe dic Sports Medicin e 2022-06-09 2022-06-09 Nikita Harris [place] [place] - [place] [id number] Am[facility]ie 00:00:00 00:00:00 Lorraine Cevallos MD: 7401 FOG_Ofc dic [facility] Spo [facility] [place] [address] , Ph. [phone] 2022-06-09 2022-06-09 Outpatient VENITA Cevallos [id number] 00:00:00 00:00:00 Nikita Harris [id number] 2022-06-05 2022-06-05 Outpatient RADHA Simsjuvencio RONNIETO [facility] [id number] [facility] 10:00:00 14:16:00 Nikita Mercado [facility] 2022-06-03 2022-06-03 Outpatient FOG_Stuckey AOSM AOSM [id number] Am[facility]ie 00:00:00 00:00:00 _Linad [id number] Ortho pe dic Sports Medicin e 2022-06-03 2022-06-03 Outpatient GC_SWHAOMC_ PRIV PRIV [id number] [facility] 00:00:00 00:00:00 David_Nadia [id number] Medica l 2022-06-03 2022-06-03 Maricarmen [facility] 00:00:00 00:00:00 [facility] MD David: GC_SWHAOMC_ [address] [facility], [place] [address] , Ph. 2022-06-03 2022-06-03 Outpatient Maricarmen Hernandez PRIV PRIV [id number] 00:00:00 00:00:00 Carlos [id number] 2022-06-02 2022-06-02 Outpatient FOG_Stuckey AOSM AOSM [id number] Am[facility]ie 00:00:00 00:00:00 _Linda [id number] Ortho pe dic Sports Medicin e 2022-06-02 2022-06-02 Outpatient VENITA Cevallos AOSM [id number] 00:00:00 00:00:00 Nikita Harris [id number] 2022-06-02 2022-06-02 Nikita Harris AOS[facility] [place] - Ortho [id number] Am[facility]ie 00:00:00 00:00:00 Lorraine Cevallos MD: 7401 FOG_Ofc dic [facility] Spo [facility] [place], [place] [address] , Ph. [phone] 2022-05-27 2022-05-28 Outpatient nullFlavo MNA [id number] [facility] 15:15:00 04:59:59 r Neurology 03 l Rachel Malhotra 2022-05-27 2022-05-28 Outpatient nullFlavo MNA [id number] [facility] 15:15:00 04:59:59 r Neurology 03 l Rachel Malhotra 2022-05-27 2022-05-[address] [facility] [id number] 10:15:00 23:59:59 Dylan Shekhar Swain 2022-05-27 2022-05-27 Outpatient MHIE MHIE [id number] [facility] 10:15:00 10:15:00 03 madeleine Malhotra 2022-05-13 2022-05-13 Outpatient GC_SWHAOMC_ PRIV PRIV [id number] [facility] 12:04:00 12:04:00 Black_D [id number] Medica l 2022-05-12 2022-05-12 Outpatient GC_SWHAOMC_ PRIV PRIV [id number] [facility] 02:16:00 02:16:00 Black_D [id number] Medica l 2022-04-21 2022-04-21 Outpatient FOG_Murillo AOSM AOSM [id number] Am[facility]ie 00:00:00 00:00:00 _Linda [id number] Ortho pe dic Sports Medicin e 2022-02-25 2022-02-26 Outpatient nullFlavo MNA [id number] [facility] 18:45:00 04:59:59 r Neurology 02 l Rachel Malhotra 2022-02-25 2022-02-26 Outpatient nullFlavo MNA [id number] [facility] 18:45:00 04:59:59 r Neurology 02 l Rachel Malhotra 2022-02-25 2022-02-25 [id number] 13:45:00 23:59:59 Dylan 02 Wiliam 2022-02-25 2022-02-25 Outpatient MHIE MHIE [id number] [facility] 13:45:00 13:45:00 02 madeleine Roscoe 2021-11-07 2021-11-07 Telephone HERNESTO Kaufman [id number] [facility] 00:00:00 00:00:00 Lydia Carlin PREETHI [id number] ity of [facility] [id number] Branden as [phone] [place] [id number] [address] 2021-11-06 2021-11-06 Laboratory Only, Ang Db Test [facility] 1.2.8 [id number] [id number] [facility] 11:30:00 11:45:[address] [facility] [id number] ity [facility] [id number] Branden as TOSHIA?BLEA [phone] [facility] [address] [facility] 2021-11-06 2021-11-06 Outpatient R ELDA [facility] [id number] [facility] 11:30:00 11:30:00 MICA mcneil [facility] 2021-10-23 2021-10-23 Outpatient JASPAL Dsouza PAIN [id number] [facility] 08:49:00 08:49:00 Nikita [facility] [place] [facility] 2021-09-04 2021-09-05 Outpatient nullFlavo MNA [id number] [facility] 16:15:00 04:59:59 r Neurology 01 l Rachel Malhotra 2021-09-04 2021-09-05 Outpatient nullFlavo MNA [id number] [facility] 16:15:00 04:59:59 r Neurology 01 l Rachel Malhotra 2021-09-04 2021-09-04 Outpatient GEORGE Burger MHMISCHER [id number] 11:15:00 23:59:59 Dylan Wiliam 2021-09-04 2021-09-04 Outpatient MHIE MHIE [id number] Memoria 11:15:00 11:15:00 01 madeleine Malhotra 2021-08-14 2021-08-14 Inpatient RADHA KarunaJASPAL RADI [id number] [facility] 09:15:00 08:16:00 Rolando 94 [facility] 2021-08-11 2021-08-12 Outpatient nullFlavo MNA [id number] Memoria 13:30:00 04:59:59 r Neurology 00 l Rachel Malhotra 2021-08-11 2021-08-12 Outpatient nullFlavo MNA [id number] Memoria 13:30:00 04:59:59 r Neurology 00 l Rachel Malhotra 2021-08-11 2021-08-11 Outpatient GEORGE BurgerMISCHDERICK 988 [id number] 08:30:00 23:59:59 Dylan 00 Wiliam 2021-08-11 2021-08-11 Outpatient MHIE MHIE [id number] Memoria 08:30:00 08:30:00 00 madeleine Malhotra 2021-07-10 2021-07-10 Outpatient JASPAL Dsouza PAIN [id number] [facility] 09:12:00 09:12:00 Nikita Cardoza [facility] 2020-12-24 2020-12-24 Clinical 1.2.840.1 [id number] Methodi 10:23:04 12:01:[address] 3.430.2.7 Hospit a .3.139487 l .8 2020-12-24 2020-12-24 Travel 1.2.840.1 1.2.172.758 6813 [id number] Methodi 00:00:00 00:00:[address] 3.430.2.7 0.2.7.3.698 Ho spita .3.366841 084.8 l .8 2020-12-03 2020-12-03 Clinical 1.2.840.1 [id number] Methodi 09:44:59 09:55:[address] 3.430.2.7 Hospit a .3.139900 l .8 2020-12-03 2020-12-03 Travel 1.2.840.1 1.2.716.308 8114 [id number] Methodi 00:00:00 00:00:[address] 3.430.2.7 0.2.7.3.698 Ho spita .3.863258 084.8 l .8 2020-11-25 2020-11-25 Travel 1.2.840.1 1.2.780.416 4144 [id number] Methodi 00:00:00 00:00:[address] 3.430.2.7 0.2.7.3.698 Ho spita .3.866788 084.8 l .8 2020-07-08 2020-07-08 Outpatient Doctor, HCATO PAIN [id number] [facility] 12:00:00 12:00:00 Jose 00 [facility] Results Test Description Test Time Test Comments Results Result Comments Source BASIC METABOLIC PANEL 2022-08-19 07:05:00 Test Item Value Reference Range Interpretation Comme nts SODIUM (test code = NA) 139 mmol/L 136-145 N POTASSIUM (test code = K) 4.1 mmol/L 3.5-5.1 N CHLORIDE (test code = CL) 101.0 mmol/L 98-107 N CARBON DIOXIDE (test code = 26.9 mmol/L 21-32 N CO2) GLUCOSE (test code = GLU) 176 mg/dL 70-110 H BLOOD UREA NITROGEN (test code 26 mg/dL 7-18 H = BUN) GLOMERULAR FILTRATION RATE 44.7 >60 U nit of measure: mL/min/1.73 (test code = GFR) [id number] e Range:Healthy Adults >90 mL/m in/1.73 m2 For Chronic Kidney Disease: Stage II Mild Decreas e in GFR 60-90 Stage III Moder ate Decrease in GFR 30-59 St age IV Severe Decrease in GFR 15-29 Stage V Kidney Failure <15 CREATININE (test code = CREAT) 1.17 mg/dL 0.55-1.30 N CALCIUM (test code = CA) 8.6 mg/dL 8.2-10.1 N HGB [id number] 06:33:00 Test Item Value Reference Range Interpretation Comments HEMOGLOBIN (test code = HGB) 11.7 g/dL 12-16 L HEMATOCRIT (test code = HCT) 35.2 % 37-47 L SPECIMEN COMMENT: POD #1Hemoglobin and Hematocrit panel - [id number] 04:56:00 Test Item Value Reference Range Interpretation Comments hemoglobin (test code = hemoglobin) 11.7 g/dL 12-16 L hematocrit (test code = hematocrit) 35.2 % 37-47 L performing lab: (test code = performing lab:) [facility] W/MANUAL [id number] 19:36:00 Test Item Value Reference Range Interpretation Comments WHITE BLOOD CELL 5.9 K/mm3 5.8-11.0 N (test code = WBC) RED BLOOD CELL (test 4.07 M/mm3 4.2-5.4 L code = RBC) HEMOGLOBIN (test 12.1 g/dL 12-16 N code = HGB) HEMATOCRIT (test 37.0 % 37-47 N code = HCT) MEAN CELL VOLUME 91 fL 80-98 N (test code = MCV) MEAN CELL HGB (test 29.7 pg 27-34 N code = MCH) MEAN CELL HGB 32.7 g/dL 30.8-34.1 N CONCENTRATION (test code = MCHC) RED CELL 13.4 % 11-16 N DISTRIBUTION WIDTH (test code = RDW) PLT (test code = 172 K/mm3 130-400 N PLT) MEAN PLATELET VOLUME 10.5 fL 8.9-12.1 N (test code = MPV) STAIN ACCEPTABILITY STAIN ACCEPTABLE (test code = STN ACCEPTABLE) CELLS COUNTED (test 100 See_Comment [Automa rand code = TCC) message] The system which generated this result transmitted reference range : 100. The reference range was not used to interpret this result as normal/abnormal . SEGMENTED 37 % 50-65 L NEUTROPHILS (test code = SEG) LYMPHOCYTE (test 44 % 20-40 H code = LYMPH) NUCLEATED RED BLOOD 0 % 0-0 N CELL (test code = NRBC) MONOCYTE (test code 19 % 2-9 HH = MON) PATHOLOGIST REVIEW [id number] 19:36:00 Test Item Value Reference Range Interpretation Comments PATHOLOGIST REVIEW CBC REVIE W-NORMOCYTIC REQUIRED (test code = NORMOC HROMIC RED BLOOD PATHH) CELLS (Hgb: 12. 1 g/dL, MCV: 91)-WHITE BLOOD CELLS (WBC: 590 0) WITH MONOCYTOSIS (19 %), NO ATYPICAL MONOCY RE OR BLASTS SEEN.-AD EQUATE PLATELETS (PLAT ELET: 172K) COMMENT: RECOMMEND CLINICAL CORREL ISABEL BELTRÁN M.D. 07/30/2022 COMPREHENSIVE METABOLIC [id number] 10:18:00 Test Item Value Reference Range Interpretation Comments SODIUM (test code = 143 mmol/L 136-145 N NA) POTASSIUM (test code = 4.5 mmol/L 3.5-5.1 N K) CHLORIDE (test code = 102.0 mmol/L 98-107 N CL) CARBON DIOXIDE (test 31.1 mmol/L 21-32 N code = CO2) GLUCOSE (test code = 111 mg/dL 70-110 H GLU) BLOOD UREA NITROGEN 12 mg/dL 7-18 N (test code = BUN) GLOMERULAR FILTRATION 75.9 >60 Unit o f measure: RATE (test code = GFR) mL/mi n/1.73 [id number] Range:Healthy Adults >90 mL/min/1.73 m2 For Chronic Kidney Disease: Stage II Mild Decrease i n GFR 60-90 Stage III Moderate Decrea se in GFR 30-59 St age IV Severe Decre ase in GFR 15-29 St age V Kidney Failur e <15 CREATININE (test code 0.74 mg/dL 0.55-1.30 N = CREAT) TOTAL PROTEIN (test 6.9 g/dL 6.4-8.2 N code = PROT) ALBUMIN (test code = 3.6 g/dL 3.4-5.0 N ALB) GLOBULIN (test code = 3.3 g/dL 2.2-4.2 N GLOB) ALBUMIN/GLOBULIN RATIO 1.1 0.7-2.0 N (test code = A/G) CALCIUM (test code = 9.1 mg/dL 8.2-10.1 N CA) BILIRUBIN TOTAL (test 0.60 mg/dL 0.2-1.00 N code = BILT) SGOT/AST (test code = 25.0 U/L 15-37 N AST) SGPT/ALT (test code = 26.0 U/L 12-78 N Please note new ALT) normal range. ALKALINE PHOSPHATASE 118 U/L 46-116 H TOTAL (test code = ALKP) PROTHROMBIN [id number] 10:16:00 Test Item Value Reference Range Interpretation Comments PROTHROMBIN TIME 11.3 secs 9.7-12.5 N Please note new normal PATIENT (test code = range. PTP) INTERNATIONAL NORMAL 1.02 <2.0 RECOMME NDED THERAPEUTIC RATIO (test code = RANGE FOR ORAL INR) ANTICOAGULANTTR EATMENT: CONDITION INRPr ophylaxis of venous throm bosis in 2.0 - 3.0 high- risk medical or surg ical patientsTreatme nt of venous thrombos is 2.0 - 3.0Prevention o f embolism 2.0 - 3.0Prevention o f recurrent embol ism, or 3.0 - 4.5 patie nts with mechanical pros thetic intravascular v valenzuela IS PATIENT ON ANTICOAGULANTS ? NHas Lab been notified if Patient is on Heparin Drip? NOIf Yes, orderCBC, OCCULT BLOOD, PT every other day NTHROMBOPLASTIN TIME [id number] 10:16:00 Test Item Value Reference Range Interpretation Comments PTT ACTIVATED (test 34.7 secs 26.6-34.6 H Please n ote new code = APTT) normal range. IS PATIENT ON ANTICOAGULANTS ? MAas Lab been notified if Patient is on Heparin Drip? NOIf Yes, orderCBC, OCCULT BLOOD, PT every other day NCBC W/AUTO DIFF 2022-07-30 09:57:00 Test Item Value Reference Range Interpretation Comments WHITE BLOOD CELL (test 5.9 K/mm3 5.8-11.0 N code = WBC) RED BLOOD CELL (test 4.07 M/mm3 4.2-5.4 L code = RBC) HEMOGLOBIN (test code = 12.1 g/dL 12-16 N HGB) HEMATOCRIT (test code = 37.0 % 37-47 N HCT) MEAN CELL VOLUME (test 91 fL 80-98 N code = MCV) MEAN CELL HGB (test code 29.7 pg 27-34 N = MCH) MEAN CELL HGB 32.7 g/dL 30.8-34.1 N CONCENTRATION (test code = MCHC) RED CELL DISTRIBUTION 13.4 % 11-16 N WIDTH (test code = RDW) PLT (test code = PLT) 172 K/mm3 130-400 N MEAN PLATELET VOLUME 10.5 fL 8.9-12.1 N (test code = MPV) NEUTROPHIL % (test code 35.9 % 45-70 L = NT%) LYMPHOCYTE % (test code 41.5 % 20-40 H = LY%) MONOCYTE % (test code = 21.5 % 3-10 H MO%) EOSINOPHIL % (test code 0.5 % 1-5 L = EO%) BASOPHIL % (test code = 0.3 % 0.0-1.1 N BA%) NEUTROPHIL # (test code 2.11 K/mm3 2.00-7.50 N = NT#) LYMPHOCYTE # (test code 2.45 K/mm3 1.50-4.00 N = LY#) MONOCYTE # (test code = 1.27 K/mm3 0.2-0.8 H MO#) EOSINOPHIL # (test code 0.03 K/mm3 0.04-0.4 L = EO#) BASOPHIL # (test code = 0.02 K/mm3 0.02-0.10 N BA#) MANUAL DIFF REQUIRED YES MANUAL DIFF MANUAL DIFF (test code = MDIFF) REQUIRED . NUCLEATED RED BLOOD CELL 0 % 0-0 N (test code = NRBC) Prothrombin time (PT)2022-07-30 09:40:00 Test Item Value Reference Range Interpretation Comments prothrombin time patient (test code 11.3 secs 9.7-12.5 = prothrombin time patient) international normal ratio (test 1.02 <2.0 code = international normal ratio) performing lab: (test code = performing lab:) [facility] [id number] 09:40:00 Test Item Value Reference Range Interpretation Comments PTT activated (test code = PTT 34.7 secs 26.6-34.6 H activated) performing lab: (test code = performing lab:) [facility] InstituteCom[facility] 2000 panel - Serum or [id number] 09:40:00 Test Item Value Reference Range Interpretation Comments sodium (test code = sodium) 143 mmol/L 136-145 potassium (test code = 4.5 mmol/L 3.5-5.1 potassium) chloride (test code = chloride) 102.0 mmol/L 98-107 carbon dioxide (test code = 31.1 mmol/L 21-32 carbon dioxide) glucose (test code = glucose) 111 mg/dL 70-110 H blood urea nitrogen (test code = 12 mg/dL 7-18 blood urea nitrogen) glomerular filtration rate (test 75.9 >60 code = glomerular filtration rate) creatinine (test code = 0.74 mg/dL 0.55-1.30 creatinine) total protein (test code = total 6.9 g/dL 6.4-8.2 protein) albumin (test code = albumin) 3.6 g/dL 3.4-5.0 globulin (test code = globulin) 3.3 g/dL 2.2-4.2 albumin/globulin ratio (test 1.1 0.7-2.0 code = albumin/globulin ratio) calcium (test code = calcium) 9.1 mg/dL 8.2-10.1 bilirubin total (test code = 0.60 mg/dL 0.2-1.00 bilirubin total) SGOT/AST (test code = SGOT/AST) 25.0 U/L 15-37 SGPT/ALT (test code = SGPT/ALT) 26.0 U/L 12-78 alkaline phosphatase total (test 118 U/L 46-116 H code = alkaline phosphatase total) performing lab: (test code = performing lab:) [facility] W Ordered Manual Differential panel - Blood 2022-07-30 09:40:00 Test Item Value Reference Range Interpretation Comments white blood cell 5.9 K/mm3 5.8-11.0 (test code = white blood cell) red blood cell (test 4.07 M/mm3 4.2-5.4 L code = red blood cell) hemoglobin (test 12.1 g/dL 12-16 code = hemoglobin) hematocrit (test 37.0 % 37-47 code = hematocrit) mean cell volume 91 fL 80-98 (test code = mean cell volume) mean cell HGB (test 29.7 pg 27-34 code = mean cell HGB) mean cell HGB 32.7 g/dL 30.8-34.1 concentration (test code = mean cell HGB concentration) red cell 13.4 % 11-16 distribution width (test code = red cell distribution width) plt (test code = 172 K/mm3 130-400 plt) mean platelet volume 10.5 fL 8.9-12.1 (test code = mean platelet volume) stain acceptability stain acceptable (test code = stain acceptability) cells counted (test 100 See_Comment [Automa rand code = cells message] The counted) system which generated this result transmitted reference range : 100. The reference range was not used to interpret this result as normal/abnormal . segmented 37 % 50-65 L neutrophils (test code = segmented neutrophils) lymphocyte (test 44 % 20-40 H code = lymphocyte) monocyte (test code 19 % 2-9 H = monocyte) nucleated red blood 0 % 0-0 cell (test code = nucleated red blood cell) performing lab: (test code = performing lab:) [facility]utep[facility] review [id number] 09:40:00 Pathologist Review RequiredPerforming Lab:[facility] Methicillin resistant Staphylococcus aureus [Presence] in Specimen by Organism specific [id number] 09:40:00 Test Item Value Reference Range Interpretation Comments MRSA surveillance screen (test code see below = MRSA surveillance screen) performing lab: (test code = performing lab:) [facility]utemssa PCR surveillance [id number] 09:40:00 Test Item Value Reference Range Interpretation Comments mssa PCR surveillance screen (test see below code = mssa PCR surveillance screen) performing lab: (test code = performing lab:) [facility]- MRI UP JN W/O CONT [id number] 07:49:00 [facility] : 1945 Sex: F Patient Name: JARRETT HERNANDEZ Unit No: [id number] EXAMS: CPT CODE: [id number] MRI UP [facility] W/[place] [address] MRI OF THE LEFT SHOULDER DIAGNOSIS: 1. Near full-thickness tear of the leading edge of thesupraspinatus tendon with tendinosis. There is no evidence for tendon retraction or muscular atrophy. 2. Partial-thickness longitudinal split tear of the superior subscapularis tendon with biceps tendin osis and medial subluxation. There is no evidence for subscapularis tendon retraction or muscular atrophy. An associated SLAP tear of the labrum is present. 3. Partial-thickness insertional tearing of the infraspinatus tendon with tendinosis. There is no evidence for tendon retraction or muscular atrophy. 4. Severe glenohumeral joint degenerative change with bone marrow edema, subchondral cyst and full-thickness cartilage loss. Degenerative tears of the anterior, posterior and inferior labrum are noted. A large joint effusion is present with synovitis. COMMENT: COMPARISON: No prior exams available. Scans were performed in the paracoronal, parasagittal and axial planes utilizing T1 , spin density with fat saturation and T2-weighting with and without fat saturation. The rotator cuff is as described. The acromion is horizontal. The glenohumeral joint is as noted. There is minimal bursal fluid. at 0749 Reported and signed by: David Zavala MD CC: Nikita Cevallos MD; Nikita Morales MD Technologist: Denis Cameron Transcribed D/ (0749) Sagar.[facility] NAME: JARRETT HERNANDEZ [address] [facility] PHYS: Nikita Shah MD : 1945 AGE: 77 SEX: F [place] [address] LOC: Y.MRI PHONE #: [phone] EXAM DATE: 06/05/2022 STATUS: REG CLI FAX#: [phone] RAD #: D/C DT PAGE 1 Signed Report Patient Name: JARRETT HERNANDEZ Unit No: [id number] EXAMS: CPT CODE: [id number] MRI [place] JNT W/[place] [address] (Continued) Orig Print D/T: S: 2021 (0753) [facility] NAME: JARRETT HERNANDEZ [address] [facility] PHYS: Nikita Shah MD : 1945 AGE: 77 SEX: F [place] [address] LOC: Y.MRI PHONE #: [phone] EXAM DATE: 06/05/2022 STATUS: REG CLI FAX #: [phone] RAD #: D/C DT PAGE2 Signed Report - XR FLUORO FOR SPINE [id number] 19:18:00 [facility] : 1945 Sex: F Patient Name: JARRETT HERNANDEZ Unit No: [id number] EXAMS: CPT CODE: [id number] XR FLUORO FOR SPINE INJ 48245 LUMBAR EPIRADICULAR INJECTION REFERRAL PHYSICIAN: Rolando Beckman [...] with the patient noting relief of her rightlow back and radiating lower extremity pain. Preinjection [...] the insertion sites were marked for paravertebral ap proaches and using standard technique, a 25 gauge [...] patient was taken to the PACU in goodcondition. Image: Image 1 Image: Image 2 at 1918 Reported and signed by: Nikita Morales M.D. [facility] NAME: JARRETT HERNANDEZ [address] [facility] PHYS: Nikita Wolff MD : 1945 AGE: 76 SEX: F [place] [address] LOC: JAMES PHONE #: [phone] EXAM DATE: 10/23/2021 STATUS: REG SDC FAX #: [phone] RAD #: D/C DT PAGE 1 Signed Report (CONTINUED) Patient Name: JARRETT HERNANDEZ Unit No: [id number] EXAMS: CPT CODE: [id number] XR FLUORO FOR SPINE INJ 84654 (Continued) CC: Nikita Morales MD Technologist: Carl Gage,RT(R) Transcribed D/ (1917) tAUDRAR.[facility] NAME: JARRETT HERNANDEZ [address] [place] [address] PHYS: Nikita Wolff MD : 1945 AGE: 76 SEX: F [place] [address] LOC: JAMES PHONE#: [phone] EXAM DATE: 10/23/2021 STATUS: REG SDC FAX #: [phone] RAD #: D/C DT PAGE 2 Signed Report Patient Name: JARRETT HERNANDEZ Unit No: [id number] EXAMS: CPT CODE: [id number] XR FLUORO FOR SPINE INJ 34140 (Continued) Orig Print D/T: S: 10/23/2021 (1920) [facility] NAME: JARRETT HERNANDEZ [address] [place] [address] PHYS: Nikita Wolff MD : 1945 AGE: 76 SEX: F [place] [address] LOC: JAMES PHONE #: [phone] EXAM DATE: 10/23/2021 STATUS: REG SDC FAX #: [phone] RAD #: D/C DT PAGE 3 Signed Report- MRI L-SPINE W/O [id number] 10:32:00 [facility] : 1945 Sex: F Patient Name: JARRETT HERNANDEZ Unit No: [id number] EXAMS: CPT CODE: [id number] MRI L-SPINE W/O CONT 01530 DIAGNOSIS: 1. At L1-2 there is endplate [...] patient is status post discectomy and graft withmoderate right foraminal narrowing and mild left-sided stenosis. Decompression of the canal has beenperformed. 5. At L5-S1 the patient is status [...] with the prior exam. at 1032 Reported andsigned by: David Zavala MD CC: Nikita Morales MD; Rolando Beckman MD Technologist: LESTER MIRANDA MRI Transcribed D/ (1032) JuanaL [facility] NAME: JARRETT HERNANDEZ [address] [facility] PHYS: Rolando Swanson : 1945 AGE: 76 SEX: F [place] [address] LOC: Y.MRI PHONE #: [phone] EXAM DATE: 08/14/2021 STATUS: REG CLI FAX #: [phone] RAD #: D/C DT PAGE 1 Signed Report Patient Name: JARRETT HERNANDEZ UnitNo: [id number] EXAMS: CPT CODE: [id number] MRI L-SPINE W/O CONT 18898 (Continued) Orig Print D/T: S:08/14/2021 (1035) [facility] NAME: JARRETT HERNANDEZ [address] [facility] PHYS: SANDIP TorresRolando parker : 1945 AGE: 76 SEX: F [place] [address] LOC: Y.MRI PHONE #: [phone] EXAM DATE: 08/14/2021 STATUS: REG CLI FAX #: [phone] RAD #: D/C DTPAGE 2 Signed Report - XR FLUORO FOR SPINE [id number] 18:59:00 [facility] : 1945 Sex: F Patient Name: JARRETT HERNANDEZ Unit No: [id number] EXAMS: CPT CODE: [id number] XR FLUORO FOR SPINE INJ 24056 LUMBAR EPIRADICULAR INJECTION REFERRAL PHYSICIAN: Rolando Beckman [...] padded and appropriate monitors placed. The patient wassterilely prepped and draped over the lumbosacral spine. [...] removed [facility] Image: Image 1 Image: Image 2 at 1859 Reported and signed by: Nikita Morales M.D. [facility] NAME: JARRETT HERNANDEZ [address] [facility] PHYS: Nikita Wolff MD, [place] [address] : 1945 AGE: 76 SEX: F LOC: JAMES PHONE #: [phone] EXAM DATE: 07/10/2021 STATUS: REG SD FAX #: [phone] RAD #: D/C DT PAGE 1 Signed Report (CONTINUED) Patient Name: JARRETT HERNANDEZ Unit No: [id number] EXAMS: CPT CODE: [id number] XR FLUORO FOR SPINE INJ 70958 (Continued) CC: Technologist: Arelis Mcmillan(R) Transcribed D/ (209) [facility] [place] NAME: JARRETT HERNANDEZ [address] [facility] PHYS: Nikita Wolff MD [place] [address] : 1945 AGE: 76 SEX: F LOC: JAMES PHONE #: [phone] EXAM DATE: 07/10/2021 STATUS: REG [facility] FAX #: [phone] RAD #: D/C DT PAGE 2 Signed Report Patient Name: JARRETT HERNANDEZ Unit No: [id number] EXAMS: CPT CODE: [id number] XR FLUORO FOR SPINE INJ 53088 (Continued) Orig Print D/T: S: 07/10/2021 (1903) [facility] NAME: JARRETT HERNANDEZ [address] [place] [address] PHYS: Nikita Wolff MD [place] [address] : 1945 AGE: 76 SEX: F LOC: JAMES PHONE #: [phone] EXAM DATE: 07/10/2021 STATUS: REG [facility] FAX #: [phone] RAD #: D/C DT PAGE 3 Signed Report- XR FLUORO FOR SPINE [id number] 11:04:00 Patient Name: JARRETT HERNANDEZ JOSE Unit No: [id number] EXAMS: CPT CODE: [id number] XR FLUORO FOR SPINE INJ 44925 LUMBAR TRANSFORAMINAL INJECTION REFERRING PHYSICIAN:Rolando Beckman M.D. PREOPERATIVE DIAG NOSIS: Degenerative Lumbar Disc Disease. POSTOPERATIVE DIAGNOSIS: Lumbar radiculopathy PROCEDURES PERFORMED 1. Fluoroscopically guided needle localization of the right L5, right S1 spinal nerve/nerveswith transforaminal epidural steroid injection/injections. 2. Transforaminal epidurogram/epidurograms at right L5, right S1. FINDINGS: Poor [...] fluoroscopy suite and placed in a prone positionwith all extremities padded and appropriate monitors placed. A sterile prep and drape was performed o liz the lumbosacral spine. Using fluoroscopic visualization at [...] lidocaine and 10 mg of triamcinolone was injectedincrementally with frequent negative aspirations. There were no signs of intravascular or intrathecal uptake. Each subsequent level was done using the same technique and medications. The patient's vital signs remained stable. The patient was taken to the PACU in good condition. at 1104 Reported and signed by: Jose Woods M.D. CC: Luisa dang: Arelis Mcmillan(Neema) Transcribed D/ (1104) SofiaUVD [facility] NAME: JARRETT HERNANDEZ [address] [place] [address] PHYS: DOCUD - Doctor,Jose Lyons MD [place], [place] [address] : 1945 AGE: 75 SEX: F LOC: JAMES PHONE #: [phone] EXAM DATE: 07/08/2020 STATUS: REG [facility] FAX #: [phone] RAD #: D/C DT PAGE 1 Signed Report Patient Name: JARRETT HERNANDEZ Unit No: [id number] EXAMS: CPT CODE: [id number] XR FLUORO FOR SPINE INJ 79307(Continued) Orig Print D/T: S: 07/08/2020 (1107) [facility] NAME: JARRETT HERNANDEZ [address] [facility] PHYS: DOCUD - Doctor,Jose Lyons MD [place], [place] [address] : 1945 AGE: 75 SEX: F LOC: JAMES PHONE #: [phone] EXAM DATE: 07/08/2020 STATUS: REG [facility] FAX #: [phone] RAD #: D/C DT PAGE 2 Signed Report- MRI L-SPINE W/O [id number] 13:41:00 Patient Name: JARRETT HERNANDEZ Unit No: [id number] EXAMS: CPT CODE: [id number] MRI L-SPINE W/O CONT 37215 MRI OF THE LUMBAR SPINE: DIAGNOSIS: 1. At L1-2, a moderate to marked degeneration. There is 2 mm retrolisthesis of L5 on L2. No central canal stenosis. Moderate bilateral foraminal stenosis.2. At L2-3, patient status post anterior discectomy and laminectomy. No foraminal stenosis. 3. At L3-4, patient status post anterior discectomy and laminectomy. Moderate right foraminal stenosis. 4. AtL4-5, patient status post anterior discectomy and laminectomy. [...] Beckman MD Technologist: Hipolito Pond(R) Transcribed D/ (1341) SofiaGVG [facility] NAME: JARRETT HERNANDEZ [address] [place] [address] PHYS: Rolando Swanson : 1945 AGE: 74 SEX: F [place] [address] LOC: Y.MRI PHONE #: [phone] EXAM DATE: 09/28/2019 STATUS: REG CLI FAX #: [phone] RAD #: D/C DT PAGE 1 Signed Report Patient Name: JARRETT HRENANDEZUnit No: [id number] EXAMS: CPT CODE: [id number] MRI L-SPINE W/O CONT 12716 (Continued) Orig Print D/T: S: 09/28/2019 (1345) [facility] NAME: JARRETT HERNANDEZ [address] [place] [address] PHYS: Rolando Swanson : 1945 AGE: 74 SEX: F [place] [address] LOC: Y.MRI PHONE #: [phone] EXAM DATE: 09/28/2019 STATUS: REG CLI FAX #: [phone] RAD #: D/C DT PAGE 2 Signed Report
--- NOTE | 2022-09-27 12:35 | RAD REPORT ---
EXAM DESCRIPTION: RAD - Chest Single View - 09/27/2022 12:13 pm CLINICAL HISTORY: SOB COMPARISON: Two view chest 04/26/2022 TECHNIQUE: AP portable chest image was obtained 09/27/2022 12:13 pm . FINDINGS: No focal mass or consolidation. Interstitial markings are prominent but not substantially different when adjusting for differences in technique. This is probably the patient's baseline chroni c interstitial lung pattern. No significant acute failure or volume overload seen. Heart and vasculature are normal. No measurable pleural effusion and no pneumothorax. No acute bony abnormality seen. No acute aortic findings suspected. IMPRESSION: Chronic interstitial lung pattern not clearly different from April comparison study.
[2022-09-27] MEDS ORDERED: LIDOCAINE HCL JELLY 2% 6 ML SYRINGE TOP ONE (15:04)
[2022-09-27] MEDS ORDERED: HYDROCODONE/APAP 5/325 MG TAB ONE (15:16)
[2022-09-27 15:44] LABS: Absolute Lymphocytes (CBC) 2.2 K/uL (0.7-4.9); Hematocrit 27.7 % (36.0-45.0); Lymphocytes % 30.4 % (15.3-44.8); MCV 93.2 fL (80-100); MPV 7.7 fL (7.6-11.3); RBC Red Blood Cell Count 2.97 M/uL (3.86-4.86)
[2022-09-27 16:11] LABS: Magnesium 2.1 mg/dL (1.8-2.4); Thyroid Stimulating Hormone 1.96 uIU/mL (0.360-3.740); Troponin High Sensitivity 14.4 pg/mL (<58.9)
[2022-09-27] MEDS ORDERED: NA CHLORIDE 0.9% 500 ML ONE (16:25)
--- NOTE | 2022-09-27 16:40 | ER ---
Nurse's Notes [facility] Name: Samira Patricio Age: 77 yrs Sex: Female : 1945 Arrival Date: 09/27/2022 Time: 11:02 Bed 24 Private MD: Jez Macias Diagnosis: Palpitations;Hypokalemia Presentation: 09/27 11:22 Chief complaint: Patient states: went to physical therapy this morning, they took my 5 vitals and told me to come here. Coronavirus screen: Vaccine status: Patient reports receiving the 2nd dose of the covid vaccine. Client denies travel out of the [place] in the last 14 days. Ebola Screen: Patient negative for fever greater than or equal to 101.5 degrees Fahrenheit, and additional compatible Ebola Virus Disease symptoms Patient denies exposure to infectious person. Patient denies travel to an Ebola-affected area in the 21 days before illness onset. Initial Sepsis Screen: Does the patient meet any 2 criteria? No. Patient's initial sepsis screen is negative. Does the patient have a suspected source of infection? No. Patient's initial sepsis screen is negative. Risk Assessment: Do you want to hurt yourself or someone else? Patient reports no desire to harm self or others. 11:22 Method Of Arrival: Wheelchair [facility] 11:22 Acuity: MEME 2 5 Triage Assessment: 11:26 General: Appears uncomfortable, obese, well groomed, well developed, Behavior is calm, jh5 cooperative, appropriate for age. Pain: Denies pain. Historical: - PMHx: 11:26 Hypercholesterolemia; Hypertensive disorder; scoliosis; jh5 - PSHx: 11:26 left knee replacement; [facility] - Immunization history:: Adult Immunizations up to date. - Social history:: Smoking status: Patient denies any tobacco usage or history of. - Family history:: not pertinent. Screenin:12 Abuse screen: Denies threats or abuse. Denies injuries from another. Nutritional tp1 screening: No deficits noted. Tuberculosis screening: No symptoms or risk factors identified. Fall Risk No fall in past 12 months (0 pts). No secondary diagnosis (0 pts). No IV (0 pts). Ambulatory Aid- None/Bed Rest/Nurse Assist (0 pts). Gait- Impaired (20 pts.). Mental Status- Oriented to own ability (0 pts). Total Dover Fall Scale indicates Low Risk Score (25-44 pts). Fall prevention measures have been instituted. Side Rails Up X 2 Placed close to Nursing Station Frequent Obs/Assesments occuring As available Patient and Family Educated on Fall Prevention Program and strategies. Assessment: 11:29 General: Appears in no apparent distress. comfortable, Behavior is calm, cooperative. tp1 Pain: Denies pain. Neuro: Level of Consciousness is awake, alert, obeys commands, Oriented to person, place, time, situation, Reports dizziness, weakness Denies blurred vision headache. Cardiovascular: Denies chest pain, Patient's skin is warm and dry. Respiratory: Reports shortness of breath on exertion Airway is patent Respiratory effort is even, unlabored. GI: Abdomen is obese, Patient currently denies diarrhea, nausea, vomiting. : No signs and/or symptoms were reported regarding the genitourinary system. EENT: No signs and/or symptoms were reported regarding the EENT system. Derm: Skin is pink, warm \T\ dry. Musculoskeletal: Circulation, motion, and sensation intact. limited range of motion in left leg. 13:00 Reassessment: Patient appears in no apparent distress at this time. No changes from tp1 previously documented assessment. Patient and/or family updated on plan of care and expected duration. Pain level reassessed. Patient is alert, oriented x 3, equal unlabored respirations, skin warm/dry/pink. 14:15 Reassessment: Patient appears in no apparent distress at this time. No changes from tp1 previously documented assessment. Patient is alert, oriented x 3, equal unlabored respirations, skin warm/dry/pink. Patient denies pain at this time. 14:23 Reassessment: liner reroll tender at bedside. tp1 15:20 Reassessment: Patient appears in no apparent distress at this time. No changes from tp1 previously documented assessment. Patient is alert, oriented x 3, equal unlabored respirations, skin warm/dry/pink. Patient denies pain at this time. 16:28 Reassessment: Patient appears in no apparent distress at this time. No changes from tp1 previously documented assessment. Patient is alert, oriented x 3, equal unlabored respirations, skin warm/dry/pink. Patient denies pain at this time. 17:16 Reassessment: Patient appears in no apparent distress at this time. No changes from tp1 previously documented assessment. Patient is alert, oriented x 3, equal unlabored respirations, skin warm/dry/pink. at bedside Patient denies pain at this time. 18:30 Reassessment: Patient appears in no apparent distress at this time. No changes from tp1 previously documented assessment. resting in bed Patient denies pain at this time. 19:45 Reassessment: attempted to give report. tp1 20:05 Reassessment: report given to tp1 Vital Signs: 11:22 BP 136 / 65; Pulse 112; Resp 20; Temp 98.8; Pulse Ox 98% ; Weight 84.37 kg; Height 5 [facility] ft. 0 in. (152.40 cm); Pain 0/10; 13:15 BP 128 / 64; Pulse 94; Resp 16; Pulse Ox 98% on R/A; tp1 14:23 BP 130 / 64; Pulse 105; Resp 20; Pulse Ox 99% on R/A; tp1 15:00 BP 139 / 53; Pulse 93; Resp 11; Pulse Ox 99% on R/A; tp1 16:00 BP 140 / 71; Pulse 96; Resp 15; Pulse Ox 97% on R/A; tp1 17:16 BP 137 / 47; Pulse 98; Resp 16; Pulse Ox 99% on R/A; tp1 18:45 BP 151 / 59; Pulse 101; Resp 16; Pulse Ox 97% on R/A; tp1 11:22 Body Mass Index 36.33 (84.37 kg, 152.40 cm) [facility] ED Course: 11:02 Patient arrived in ED. rg4 11:02 Jez Macias MD is Private Physician. rg4 11:03 Rolando Knox MD is Attending Physician. rt 11:26 Triage completed. 5 11:26 Arm band placed on right wrist. 5 11:29 Raisa Abernathy, SAWYER is Primary Nurse. tp1 11:45 Patient has correct armband on for positive identification. Bed in low position. Call tp1 light in reach. Adult w/ patient. Client placed on continuous cardiac and pulse oximetry monitoring. NIBP monitoring applied. 12:15 XRAY Chest (1 view) In Process Unspecified. EDMS 12:30 Missed attempt(s): 20 gauge in left antecubital area. Bleeding controlled, band aid tp1 applied, catheter tip intact. 15:31 Inserted saline lock: 22 gauge in right EJ, using aseptic technique. ,using aseptic tp1 technique. inserted by Mari Rojas Blood collected. 16:40 Jez Macias MD is Hospitalizing Provider. rt 17:05 SARS-COV-2 Antigen Rapid Sent. tp1 18:58 No provider procedures requiring assistance completed. tp1 19:36 Patient admitted, IV remains in place. tp1 Administered Medications: 15:20 Drug: HYDROcodone-acetaminophen 5 mg-325 mg 1 tabs Route: PO; tp1 16:00 Follow up: Response: Pain is decreased tp1 16:29 Drug: NS 0.9% 500 ml Route: IV; Rate: bolus; Site: right jugular; tp1 17:18 Follow up: IV Status: Completed infusion; IV Intake: 500ml tp1 17:05 Drug: Lovenox (enoxaparin) 1 mg/kg Route: Sub-Q; Site: left lower abdomen; tp1 18:58 Follow up: Response: No adverse reaction tp1 17:05 Drug: Potassium Chloride 40 mEq Route: PO; tp1 18:58 Follow up: Response: No adverse reaction tp1 Medication: 18:58 VIS not applicable for this client. tp1 Intake: 17:18 IV: 500ml; Total: 500ml. tp1 Outcome: 16:40 Decision to Hospitalize by Provider. rt 20:26 Admitted to Med/surg accompanied by tech, via stretcher, room 202, with chart, Report tp1 called to Jennifer JACQUES 20:26 Condition: good 20:26 Discharge instructions given to patient, family, Instructed on the need for admit, Demonstrated understanding of instructions. 20:27 Patient left the ED. tp1 Signatures: Dispatcher [employer] EDSaba Bailey rg4 Lydia Armendariz RN RN jh5 Raisa Abernathy RN RN tp1 Rolando Knox MD MD rt Corrections: (The following items were deleted from the chart) 13:13 13:13 Missed attempt(s): 20 gauge in left antecubital area. Bleeding controlled, band tp1 aid applied, catheter tip intact. tp1
--- NOTE | 2022-09-27 16:40 | EDPHYS ---
Physician Documentation [facility] Name: Samira Patricio Age: 77 yrs Sex: Female : 1945 Arrival Date: 09/27/2022 Time: 11:02 Bed 24 Private MD: Jez Macias ED Physician Rolando Knox HPI: 09/27 12:32 This 77 yrs old Female presents to ER via Wheelchair with complaints of Palpitations, rt High Blood Pressure. 12:32 The patient presents with a history of heart racing. Context: The symptoms occur with rt exercise. Onset: The symptoms/episode began/occurred this morning. Duration: The patient or guardian reports a single episode, that is now resolved. Modifying factors: The symptoms are aggravated by nothing. The symptoms are alleviated by nothing. Associated signs and symptoms: The patient has no apparent associated signs or symptoms. Severity of symptoms: At their worst the symptoms were moderate. Presents to the ED with palpitations, this started while at physical therapy today. Patient complains of shortness of breath that is been present for about few days now. Denies any chest pain. States that she feels somewhat weak and does not feel well but cannot describe any other specific complaints. Symptoms are moderate severity, no other aggravating alleviating factors.. Historical: - PMHx: 11:26 Hypercholesterolemia; Hypertensive disorder; scoliosis; jh5 - PSHx: 11:26 left knee replacement; [facility] - Immunization history:: Adult Immunizations up to date. - Social history:: Smoking status: Patient denies any tobacco usage or history of. - Family history:: not pertinent. ROS: 12:32 Constitutional: Negative for fever, chills, and weight loss, Eyes: Negative for injury, rt pain, redness, and discharge, ENT: Negative for injury, pain, and discharge, Neck: Negative for injury, pain, and swelling, Abdomen/GI: Negative for abdominal pain, nausea, vomiting, diarrhea, and constipation, Back: Negative for injury and pain, MS/Extremity: Negative for injury and deformity, Skin: Negative for injury, rash, and discoloration, Neuro: Negative for headache, weakness, numbness, tingling, and seizure, Psych: Negative for depression, anxiety, suicide ideation, homicidal ideation, and hallucinations. 12:32 Constitutional: Positive for 12:32 Cardiovascular: Positive for palpitations, Negative for chest pain. 12:32 Respiratory: Positive for shortness of breath, Negative for cough. Exam: 12:10 ECG was reviewed by the Attending Physician. rt 12:32 Constitutional: This is a well developed, well nourished patient who is awake, alert, rt and in no acute distress. Head/Face: Normocephalic, atraumatic. Eyes: Pupils equal round and reactive to light, extra-ocular motions intact. Lids and lashes normal. Conjunctiva and sclera are non-icteric and not injected. Cornea within normal limits. Periorbital areas with no swelling, redness, or edema. ENT: Nares patent. No nasal discharge, no septal abnormalities noted. Tympanic membranes are normal and external auditory canals are clear. Oropharynx with no redness, swelling, or masses, exudates, or evidence of obstruction, uvula midline. Mucous membranes moist. Neck: Trachea midline, no thyromegaly or masses palpated, and no cervical lymphadenopathy. Supple, full range of motion without nuchal rigidity, or vertebral point tenderness. No Meningismus. Chest/axilla: Normal chest wall appearance and motion. Nontender with no deformity. No lesions are appreciated. Respiratory: Lungs have equal breath sounds bilaterally, clear to auscultation and percussion. No rales, rhonchi or wheezes noted. No increased work of breathing, no retractions or nasal flaring. Abdomen/GI: Soft, non-tender, with normal bowel sounds. No distension or tympany. No guarding or rebound. No evidence of tenderness throughout. Skin: Warm, dry with normal turgor. Normal color with no rashes, no lesions, and no evidence of cellulitis. MS/ Extremity: Pulses equal, no cyanosis. Neurovascular intact. Full, normal range of motion. Neuro: Awake and alert, GCS 15, oriented to person, place, time, and situation. Cranial nerves II-XII grossly intact. Motor strength 5/5 in all extremities. Sensory grossly intact. Cerebellar exam normal. Normal gait. Psych: Awake, alert, with orientation to person, place and time. Behavior, mood, and affect are within normal limits. 12:32 Cardiovascular: Tachycardic, regular rhythm, heart sounds normal. Vital Signs: 11:22 BP 136 / 65; Pulse 112; Resp 20; Temp 98.8; Pulse Ox 98% ; Weight 84.37 kg; Height 5 5 ft. 0 in. (152.40 cm); Pain 0/10; 13:15 BP 128 / 64; Pulse 94; Resp 16; Pulse Ox 98% on R/A; tp1 14:23 BP 130 / 64; Pulse 105; Resp 20; Pulse Ox 99% on R/A; tp1 15:00 BP 139 / 53; Pulse 93; Resp 11; Pulse Ox 99% on R/A; tp1 16:00 BP 140 / 71; Pulse 96; Resp 15; Pulse Ox 97% on R/A; tp1 17:16 BP 137 / 47; Pulse 98; Resp 16; Pulse Ox 99% on R/A; tp1 18:45 BP 151 / 59; Pulse 101; Resp 16; Pulse Ox 97% on R/A; tp1 11:22 Body Mass Index 36.33 (84.37 kg, 152.40 cm) [facility] Procedures: 15:38 Peripheral line: by aseptic technique a peripheral line was placed in the right snw external jugular vein. MDM: 11:29 Patient medically screened. rt 16:41 Differential diagnosis: arrythmia, PE, electrolyte disturbance, anemia. Data reviewed: rt vital signs, nurses notes, old medical records, lab test result(s), EKG, radiologic studies. ED course: Patient presents to the ED with palpitations, tachycardia. She has been having elevated D-dimer. Patient very difficult IV stick, refusing further IV sticks, unable to obtain a CT scan. Will admit for VQ scan. Patient also with hypokalemia, will replete. We will start patient on empiric anticoagulation.. 09/27 11:38 Order name: Basic Metabolic Panel; Complete Time: 16:15 rt 09/27 11:38 Order name: CBC with Diff rt 09/27 11:38 Order name: D-Dimer; Complete Time: 16:15 rt 09/27 11:38 Order name: Magnesium; Complete Time: 16:15 rt 09/27 11:38 Order name: NT PRO-BNP; Complete Time: 16:15 rt 09/27 11:38 Order name: Troponin HS; Complete Time: 16:15 rt 09/27 11:38 Order name: XRAY Chest (1 view); Complete Time: 12:37 rt 09/27 11:38 Order name: EKG; Complete Time: 11:39 rt 09/27 11:38 Order name: TSH; Complete Time: 16:15 rt 09/27 16:44 Order name: SARS-COV-2 Antigen Rapid; Complete Time: 17:22 bd 09/27 11:38 Order name: Cardiac monitoring; Complete Time: 11:42 rt 09/27 11:38 Order name: EKG - Nurse/Tech; Complete Time: 11:42 rt 09/27 11:38 Order name: IV Saline Lock; Complete Time: 13:08 rt 09/27 11:38 Order name: Labs collected and sent; Complete Time: 15:31 rt 09/27 11:38 Order name: O2 Per Protocol; Complete Time: 11:42 rt 09/27 11:38 Order name: O2 Sat Monitoring; Complete Time: 11:42 rt EC:10 Rate is 105 beats/min. Rhythm is regular, Sinus tachycardia with No ectopy. QRS [place] is rt Normal. NE interval is normal. QRS interval is normal. QT interval is normal. No Q waves. T waves are Normal. No ST changes noted. Clinical impression: Normal ECG. Interpreted by me. Administered Medications: 15:20 Drug: HYDROcodone-acetaminophen 5 mg-325 mg 1 tabs Route: PO; tp1 16:00 Follow up: Response: Pain is decreased tp1 16:29 Drug: NS 0.9% 500 ml Route: IV; Rate: bolus; Site: right jugular; tp1 17:18 Follow up: IV Status: Completed infusion; IV Intake: 500ml tp1 17:05 Drug: Lovenox (enoxaparin) 1 mg/kg Route: Sub-Q; Site: left lower abdomen; tp1 18:58 Follow up: Response: No adverse reaction tp1 17:05 Drug: Potassium Chloride 40 mEq Route: PO; tp1 18:58 Follow up: Response: No adverse reaction tp1 Disposition: 16:44 Co-signature as Attending Physician, Rolando Knox MD. rt Disposition Summary: 09/27/22 16:40 Hospitalization Ordered Hospitalization Status: Observation rt Provider: Jez Macias rt Location: Telemetry/MedSurg (observation) rt Condition: Fair rt Problem: new rt Symptoms: are unchanged rt Bed/Room Type: Standard rt Room Assignment: 204(09/27/22 18:42) dw Diagnosis - Palpitations rt - Hypokalemia rt Forms: - Medication Reconciliation Form rt - SBAR form rt Signatures: Dispatcher [employer] Jeny Dumont RN RN Meenakshi Unger FNP-C FNP-Lydia Harris RN RN jh5 Raisa Abernathy RN RN tp1 Rolando Knox MD MD rt Corrections: (The following items were deleted from the chart) 18:42 16:40 rt dw
[2022-09-27] MEDS ORDERED: ENOXAPARIN 80 MG/0.8 ML SQ ONE (17:02)
[2022-09-27] MEDS ORDERED: POTASSIUM CL SA 10 MEQ TAB PO ONE (17:02)
[2022-09-27 17:19] LABS: SARS-CoV-2 Antigen Rapid Res Negative (Negative)
[2022-09-27 20:33] VITALS: BMI 30.7
[2022-09-27 20:49] LABS: Platelet Estimate ADEQ
[2022-09-27 20:50] LABS: Blood Morphology Comment NOT SEEN (NOT SEEN)
[2022-09-27] MEDS ORDERED: ALPRAZOLAM 0.25 MG TABLET PO ONE (20:55)
[2022-09-27] MEDS ORDERED: HYDROCODONE/APAP 5/325 MG TAB PO ONE (20:55)
[2022-09-27] MEDS ORDERED: HYDRALAZINE HCL 10 MG TABLET PO SCH (21:00)
[2022-09-27] MEDS ORDERED: GABAPENTIN 300 MG CAP PO SCH (21:00)
[2022-09-27] MEDS ORDERED: ACETAMINOPHEN 500 MG TAB PO PRN (21:02)
[2022-09-27] MEDS ORDERED: HYDROCODONE/APAP 5/325 MG TAB PO PRN (21:02)
--- NOTE | 2022-09-27 21:40 | RAD REPORT ---
EXAM DESCRIPTION: US - Extrem Venous W Compress Kimani - 09/27/2022 9:26 pm CLINICAL HISTORY: rule out DVT Bilateral leg edema and swelling. COMPARISON: Extremity Venous Uni Ltd dated 02/22/2017 TECHNIQUE: Real-time sonographic interrogation of the left and right lower extremity deep venous sys tems was performed. FINDINGS: Normal compressibility, flow augmentation, phasic flow and spontaneous flow is identified in both the left and right lower extremity deep venous systems. IMPRESSION: No sonographic evidence of left or right lower extremity deep venous thrombosis.
[2022-09-27] MEDS: LOSARTAN POTASSIUM 50 MG TABLET PO SCH (21:59)
[2022-09-28] MEDS ORDERED: ENOXAPARIN 80 MG/0.8 ML SQ SCH (05:00)
[2022-09-28 05:33] LABS: Magnesium 2.2 mg/dL (1.8-2.4); Potassium 3.6 mmol/L (3.5-5.1)
[2022-09-28 05:54] VITALS: O2SAT 95
[2022-09-28] MEDS: LOSARTAN POTASSIUM 50 MG TABLET PO SCH (08:27)
[2022-09-28] MEDS ORDERED: atenoloL 50 MG TAB PO SCH (09:00)
[2022-09-28] MEDS ORDERED: AMLODIPINE 5 MG TAB PO SCH (09:00)
[2022-09-28] MEDS ORDERED: METOPROLOL TAR 50 MG TAB PO SCH (09:00)
[2022-09-28 11:41] VITALS: BP 147/50; TEMP 97.6
--- NOTE | 2022-09-28 13:50 | EKG ---
Test Date: 2022-09-27 Test Time: 11:38:38 Retail Merchandising Manager: TP MEASUREMENT RESULTS: Intervals: Rate: 105 CO: 146 QRSD: 84 QT: 338 QTc: 446 [place]: P: 42 CO: 146 QRS: -4 T: 60 INTERPRETIVE STATEMENTS: Sinus tachycardia Otherwise normal ECG Compared to ECG 03/28/2022 08:34:20 Sinus rhythm no longer present Electronically Signed On 09-28-22 13:47:50 INVESTIGATOR INTERNAL REVENUE by Darius Meléndez
--- NOTE | 2022-09-28 13:50 | ECHO ---
HEIGHT: 5 ft 5 in WEIGHT: 184 lb 6.4 oz DATE OF STUDY: 09/28/[address]: Jez Macias MD 2-DIMENSIONAL: YES M.MODE: YES DOPPLER: YES COLOR FLOW: YES TDS: NO PORTABLE: YES DEFINITY: NO BUBBLE STUDY: NO DIAGNOSIS: DYSPNEA CARDIAC HISTORY: CATHERIZATION: NO SURGERY: NO PROSTHETIC VALVE: NO PACEMAKER: NO MEASUREMENTS (cm) DIASTOLIC (NORMALS) SYSTOLIC (NORMALS) IVSd 1.2 (0.6-1.2) LA Diam 2.9 (1.9-4.0) LVEF 76% LVIDd 3.8 (3.5-5.7) LVIDs 2.1 (2.0-3.5) %FS 44% LVPWd 1.2 (0.6-1.2) Ao Diam 2.7 (2.0-3.7) 2 DIMENSIONAL ASSESSMENT: RIGHT ATRIUM: NORMAL LEFT ATRIUM: NORMAL RIGHT VENTRICLE: NORMAL LEFT VENTRICLE: NORMAL TRICUSPID VALVE: MITRAL VALVE: PULMONIC VALVE: AORTIC VALVE: PERICARDIAL EFFUSION: NONE AORTIC ROOT: NORMAL LEFT VENTRICULAR WALL MOTION: NORMAL DOPPLER/COLOR FLOW: SEE BELOW. COMMENTS: 1. NORMAL LEFT VENTRICULAR EJECTION FRACTION 60-65% WITH NORMAL WALL MOTION. 2. MILD MITRAL, AORTIC AND PULMONARY REGURGITATION. 3. MODERATE TRICUSPID REGURGUTATION. 4. MILD DIASTOLIC DYSFUNCTION. TECHNOLOGIST: Marvin JHA
--- NOTE | 2022-09-28 15:46 | RAD REPORT ---
EXAM DESCRIPTION: CT - Chest For Pe Angio - 09/28/2022 6:38 am CLINICAL HISTORY: The patient is 77 years old and is Female; R/O PE, Elevated D dimer TECHNIQUE: Axial computed tomographic angiography images of the chest with intravenous contrast. S agittal and coronal reformatted images were created and reviewed. This CT exam was performed using one or more of the following dose reduction techniques: automated exposure control, adjustment of t he mA and/or kV according to patient size, and/or use of iterative reconstruction technique. MIP reconstructed images were created and reviewed. COMPARISON: No relevant prior studies available. FINDINGS: RETROPHARYNGEAL SPACE: Retropharyngeal course of the proximal right common carotid arter y. PULMONARY ARTERIES: No pulmonary embolism or aortic aneurysm or dissection. AORTA: Mild to moderate calcified atherosclerosis of the thoracic aorta. No thoracic aortic aneurysm. LUNGS: Trace biapical scarring with right greater than left, subpleural predominant scarring versus subsegmental atelectasis. No focal consolidation. No pleural effusion. No pneumothorax or pneumomedi astinum. PLEURAL SPACE: See above. HEART: No cardiomegaly or pericardial effusion. No evidence of RV dysfunction. MEDIASTINUM: Moderate to large sized hiatal hernia. BONES/JOINTS: Multilevel spondylosis with no acute osseous abnormality. No dislocation. SOFT TISSUES: Unremarkable. LYMPH NODES: No thoracic adenopathy by CT size criteria. IMPRESSION: 1. No pulmonary embolism or aortic aneurysm or dissection. 2. Moderate to large sized hiatal hernia. 3. No acute cardiopulmonary abnormality. Electronically signed by: Glen Murray MD 09/28/2022 1:05 AM CUT OUT OPERATOR Due to temporary technical issues with the PACS/Fluency reporting system, reports are being signed by the in house radiologists without review as a courtesy to insure prompt reporting. The interpreting radiologist is fully responsible for the content of the report.
--- NOTE | 2022-09-28 21:02 | DS ---
Date of Discharge: 09/28/2022 Disposition: Discharged to go home. Physical Examination: HEENT: Unremarkable. Lungs: Clear to auscultation. Heart: Sounds normal. Abdomen: Soft. Bowel sounds normal. No guarding, rigidity, tenderness, distention. Extremities: No leg edema. Laboratory Data: Upon admission; white count 7.1, hemoglobin 9.3, platelets 269. Sodium 139, potass ium 3, chloride 101, bicarb 30, BUN 18, creatinine 0.84, glucose 122. Troponin 14.4. ProBNP 111. T SH 1.96. Today, troponin 16.4. Sodium 141, potassium 3.6, chloride 104, bicarb 29, BUN 18, creatini ne 0.91, glucose 112. Venous Doppler of leg was negative for any DVT. Chest x-ray: Chronic interst itial prominent lung markings unchanged from before and CT scan of the chest per PE protocol was nega tive for pulmonary embolus. Discharge Medications/instructions: 1.Continue all prior home medication except stop hydrochlorothiazide. 2.Stop hydralazine. 3.Stop atenolol. 4.Start metoprolol 50 mg, take 1 tablet by mouth 2 times a day. 5.Follow up at office next week. 6.Do not start physical therapy until released by me next week. Hospital Course: This is a 77-year-old pleasant female patient admitted to the hospital with shortne ss of breath problem. Please see dictated H and P for more information. After she was evaluated in the emergency room, she was admitted to the hospital. Her OR was ruled out. There was no evidence o f DVT on venous Doppler and no evidence of pulmonary embolism on CT scan of the chest per PE protocol . Echocardiogram was done today to evaluate left ventricular ejection fraction. Result was pending at the time of discharge to home. Follow up on outpatient basis. Meanwhile, the patient was dis[facility] to go home in stable condition with above-mentioned medications and instructions. Final Diagnoses: 1.Dyspnea. 2.Hypokalemia. 3.Anemia. 4.Hypertension. 5.Hyperlipidemia. DONALDO/MODL Voice ID: [id number] Report ID: [id number]
== END 2022-09-28 14:33 | disposition home or self-care (01) ==
LOC: ER 11:01 → ERHOLD 16:37 → 2ND 19:26
PROVIDERS: ADMIT Internal Medicine; ATTEND Internal Medicine
DX: R06.00 Dyspnea, unspecified (principal); E87.6 Hypokalemia; D64.9 Anemia, unspecified; I10 Essential (primary) hypertension; E78.5 Hyperlipidemia, unspecified; Z20.822 Contact with and (suspected) exposure to COVID-19
CPT/HCPCS: 93005; 93306; 85025; 80048 ×2; 36415; 83735 ×2; 85379; 84443; 84484 ×2; 83880; 71275; 71045; 93970; 96360; 96372; 99285; 87811; Q9967; J7040; G0378 ×3

== ENCOUNTER 2023-08-22 14:37 | Inpatient (IN) | payer OTHER ==
--- OUTSIDE RECORDS SUMMARY | 2023-08-22 14:46 | XMS REPORT | Continuity of Care Document ---
:1945 Author Organization [facility] t Address [address] [place]. [address] [place] [address] Care Team Providers Name Role Phone Gilberto Jez Saha Primary Care Physician Dylan Burger Attending Clinician Sudheer Attending Clinician Unavailable Esa Woodson Attending Clinician Unavailable Joby Ulrich Attending Clinician Unavailable Joby Ulrich Attending Clinician [phone] Nikita Cevallos Attending Clinician [phone] Nikita Cevallos Attending Clinician Unavailable Miguel Attending Clinician Unavailable Maricarmen Hernandez Attending Clinician [phone] Lydia Kaufman RN Attending Clinician Unavailable Only, Ang Db Test Attending Clinician Unavailable Mica Lancaster Attending Clinician MICA MARX Attending Clinician Unavailable Nikita Morales Attending Clinician Unavailable Rolando Beckman Attending Clinician Unavailable Jose Woods Attending Clinician Unavailable Sudheer Admitting Clinician Unavailable Joby Ulrich Admitting Clinician Unavailable Nikita Morales Admitting Clinician Unavailable Miguel Admitting Clinician Unavailable UNDEFINED Admitting Clinician Unavailable KNOW, DOES_NOT Admitting Clinician Unavailable Payers Payer Name Policy Type Policy Number Effective Date Expiration Date [facility] [id number] 2021 (MEDICARE 00:00:00 REPLACEMENT/ADVANTA GE - PPO) Problems Condition Condition Condition Status Onset Resolution Last Treating Co mments Source Name Details Category Date Date Treatment Clinician Date Osteoarthr Osteoarthr Problem Active A zalea itis of itis of 4-21 Orthope joint of Joint of 00:00: dic left Left 00 Sports shoulder Shoulder Medici n region Region e Osteoarthr Osteoarthr Problem Active A zalea itis of itis of 4-21 Orthope joint of Joint of 00:00: dic right Right 00 Sports shoulder Shoulder Medici n region Region e Osteoarthr Osteoarthr Problem Active A zalea osis of osis of 4-10 Orthope the the 00:00: dic carpometac Carpometac 00 Sp orts arpal arpal Medicin joint of Joint of e the thumb the Thumb Digital Digital Problem Active Amelie mucous Mucous 4-10 Orthope cyst of Cyst of 00:00: dic right hand Right Hand 00 Sp orts Medicin e Osteoarthr Osteoarthr Problem Active A zalea itis of itis of 8-22 Orthope left knee Left Knee 00:00: dic joint Joint 00 Sports Medicin e Osteoarthr Osteoarthr Problem Active A zalea itis of itis of 8-22 Orthope right knee Right Knee 00:00: di c joint Joint 00 Sports Medicin e Rotator Rotator Problem Active Amelie cuff Cuff 8-03 Orthope arthropath Arthropath 00:00: di c y of left y of Left 00 Spor ts shoulder Shoulder Medici n e Localized, Localized, Problem Active A calli primary Primary 727 Orthope osteoarthr Osteoarthr 00:00: di c itis of itis of 00 Sports the the Medicin shoulder Shoulder e region Region Tear of Tear of Problem Active Amelie left Left 7 Orthope rotator Rotator 00:00: dic cuff Cuff 00 Sports Medicin e Lumbosacra Lumbosacra Problem Active 2020-11 A calli l l 0-08 Orthope spondylosi Spondylosi 00:00: di c s with s with 00 Sports radiculopa Radiculopa Me dicin thy thy e 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 Cerebrovas Cerebrova Problem Active 2023-08-12 Memoria cular scular 12:34:06 l disease disease Odon (disorder) (disorder) Active Problem 08/12/2023 [facility] [place] Hyperlipid Hyperlipi Problem Active 2023-08-12 Memoria emia demia 12:34:06 l (disorder) (disorder) He rmann Active Problem 08/12/2023 [facility] Hypertensi Problem Active 2023-08-12 M emoria ve Hypertensi 12:34:06 l disorder, ve Odon systemic disorder, arterial systemic (disorder) arterial (disorder) Active Problem 08/12/2023 [facility] Impaired Impaired Problem Active 2023-08-12 Memoria cognition cognition 12:34:06 l (finding) (finding) Herm jose Active Problem 08/12/2023 [facility] [place] Insomnia Insomnia Problem Active 2023-08-12 Memoria (disorder) (disorder) 12:34:06 l Active [place] Problem 08/12/2023 [facility] [place] Allergies, Adverse Reactions, Alerts Allergy Allergy Status Severity Reaction(s) Onset Inactive Treating Comm ents Source Name Type Date Date Clinician No Known DA Active U 2021-11 [facility] 0[facility]12 [place] [facility]ie 00:[facility]: [facility] adhesive DA Active NE BLISTERS 2021-11 [facility] tape 0-12 [place] 00:00: Orthope 00 dic [facility]ospita [facility] No Known DA Active U 2021-11 [facility] 0[facility]11 [place] Allergie 00:00: Orthope s 00 dic Hospita l latex DA Active MO rash 2020-11 [facility] 2-17 [place] 00:00: Roe 00 [facility] latex DA Active MO [facility] 9-03 [place] 00:00: Orthope 00 dic Hospita l latex DA Active MO rash [facility] 9-03 [place] 00:00: Orthope 00 dic [facility]ospita l latex DA Active MO [facility] 9- [place] 00:00: Orthope 00 dic [facility]ospita l latex DA Active MO rash 2020-0 [facility] 9 [place] 00:00: Orthope 00 dic [facility]osp[facility] latex DA Active MO 2019-0 [facility] 8- 00:00: Orthope 00 dic [facility]ospita l latex DA Active MO rash 0 [facility] 8- [place] 00:00: Orthope 00 dic [facility]ospita l Latex Allergy Active Amelie to 8-20 Orthope substanc 00:00: dic e 00 Sports Medicin e adhesive DA Active NE [facility] 8-20 [place] 00:00: Orthope 00 dic Hospita l adhesive DA Active NE BAD RASH [facility] 820 [place] 00:00: Orthope 00 dic Hospita l NO KNOWN Drug Active [facility] ALLERGIE Class ity of [facility] Social History Social Habit Start Date Stop Date Quantity Comments Source Sexual orientation Method ist Hospital Exposure to Yes [facility] SARS-CoV-2 (event) [facility] Sex Ass[birth year] At [birth year] [facility] 00:00:00 00:00:00 Smoking Status Start Date Stop Date Source Tobacco smoking consumption unknown [facility] [place] [facility] Tobacco smoking status [facility] Medications Ordered Filled Start Stop Current Ordering Indication Dosage Frequency Signature Comments Components Source Medication Medication Date Date Medication? Clinician (SIG) Name Name galantamine 2022-11 Yes 12 mg = 1 M emoria 12 mg oral 0-03 tab, PO, l tablet 15:43: BID, # 180 Catherine nn 00 tab, 1 Refill(s), Pharmacy: [facility] [id number], 162.56, cm, 08/09/23 10:17:00 CDT, Height, 85.455, kg, 08/09/23 10:17:00 CDT, Weight Jardiance 2022-11 Yes 0 Memoria 10 mg oral 0-03 Refill(s) l tablet 15:22: [place] 00 galantamine Yes See Memori a 8 mg oral 9-11 Instructio l tablet 18:09: ns, TAKE Odon 00 ONE TABLET BY MOUTH TWICE A DAY, # 180 tab, 1 Refill(s), Pharmacy: [facility] [id number], 162.56, cm, 02/07/23 10:12:00 CDT, Height, 85, kg, 02/07/23 10:12:00 CDT, Weight Metoprolol 2023-0 Yes 50 mg = 1 Me moria Succinate 4-03 tab, PO, l ER 50 mg 15:20: Daily, # Catherine nn oral 00 30 tab, 0 tablet, Refill(s) extended release Metoprolol 0 Yes 50 mg = 1 Me moria Succinate 4-03 tab, PO, l ER 50 mg 15:20: Daily, # Catherine nn oral 00 30 tab, 0 tablet, Refill(s) extended release galantamine Yes = 1 tab, Me moria 8 mg oral 3-20 PO, BID, # l tablet 17:15: 60 tab, 5 Mamadou n 00 Refill(s), Pharmacy: [facility] [id number], 162.56, cm, 11/09/22 11:34:00 [employer], Height, 85, kg, 11/09/22 11:34:00 [employer], Weight galantamine Yes = 1 tab, Me moria 8 mg oral 3-20 PO, BID, # l tablet 17:15: 60 tab, 5 Mamadou n 00 Refill(s), Pharmacy: [facility] [id number], 162.56, cm, 11/09/22 11:34:00 [employer], Height, 85, kg, 11/09/22 11:34:00 [employer], Weight mirtazapine 0 Yes 7.5 mg = 1 Memoria 7.5 mg oral 1-03 tab, PO, l tablet 17:46: Bedtime, # Catherine nn 00 30 tab, 3 Refill(s), Pharmacy: [facility] [id number], 162.56, cm, 11/09/22 11:34:00 [employer], Height, 85, kg, 11/09/22 11:34:00 [employer]AL [employer]PER[employer]OR, Weight mirtazapine 0 Yes 7.5 mg = 1 Memoria 7.5 mg oral 1-03 tab, PO, l tablet 17:46: Bedtime, # Catherine nn 00 30 tab, 3 Refill(s), Pharmacy: [facility] [id number], 162.56, cm, 11/09/22 11:34:00 [employer], Height, 85, kg, 11/09/22 11:34:00 [employer], Weight Metoprolol 0 Yes 0 Memoria Succinate 1-03 Refill(s) l ER 50 mg 17:35: [place] oral 00 tablet, extended release Metoprolol 2022-0 Yes 0 Memoria Succinate 1-03 Refill(s) l ER 50 mg 17:35: Odon oral 00 tablet, extended release Razadyne 8 2021-0 Yes 8 mg = 1 Mem oria mg oral 9-30 tab, PO, l tablet 17:11: BID, # 60 Mamadou n 00 tab, 4 Refill(s), Pharmacy: [facility] [id number], 162.56, cm, 08/06/22 11:59:00 CDT, Height, 89.773, kg, 08/06/22 11:59:00 CDT, Weight Razadyne 8 2021-0 Yes 8 mg = 1 Mem oria mg oral 9-30 tab, PO, l tablet 17:11: BID, # 60 Mamadou n 00 tab, 4 Refill(s), Pharmacy: [facility] [id number], 162.56, cm, 08/06/22 11:59:00 CDT, Height, 89.773, kg, 08/06/22 11:59:00 CDT, Weight Razadyne 8 2021-0 Yes 8 mg = 1 Mem oria mg oral 9-30 tab, PO, l tablet 17:11: BID, # 60 Mamadou n 00 tab, 4 Refill(s), Pharmacy: [facility] [id number], 162.56, cm, 08/06/22 11:59:00 CDT, Height, 89.773, kg, 08/06/22 11:59:00 CDT, Weight Razadyne 8 2021-0 Yes 8 mg = 1 Mem oria mg oral 9-30 tab, PO, l tablet 17:11: BID, # 60 Mamadou n 00 tab, 4 Refill(s), Pharmacy: [facility] [id number], 162.56, cm, 08/06/22 11:59:00 CDT, Height, 89.773, kg, 08/06/22 11:59:00 CDT, Weight Razadyne 4 2021-0 Yes 4 mg = 1 Mem oria mg oral 7-21 tab, PO, l tablet 15:51: BID, # 60 Mamadou n 00 tab, 3 Refill(s), Pharmacy: [facility] [id number], 162.56, cm, 05/27/22 10:36:00 CDT, Height, 91.818, kg, 05/27/22 10:36:00 CDT, Weight Razadyne 4 0 Yes 4 mg = 1 Mem oria mg oral 7-21 tab, PO, l tablet 15:51: BID, # 60 Mamadou n 00 tab, 3 Refill(s), Pharmacy: [facility] [id number], 162.56, cm, 05/27/22 10:36:00 CDT, Height, 91.818, kg, 05/27/22 10:36:00 CDT, Weight Razadyne 4 0 Yes 4 mg = 1 Mem oria mg oral 7-21 tab, PO, l tablet 15:51: BID, # 60 Mamadou n 00 tab, 3 Refill(s), Pharmacy: [facility] [id number], 162.56, cm, 05/27/22 10:36:00 CDT, Height, 91.818, kg, 05/27/22 10:36:00 CDT, Weight Razadyne 4 0 Yes 4 mg = 1 Mem oria mg oral 7-21 tab, PO, l tablet 15:51: BID, # 60 Mamadou n 00 tab, 3 Refill(s), Pharmacy: [facility] [id number], 162.56, cm, 05/27/22 10:36:00 CDT, Height, 91.818, kg, 05/27/22 10:36:00 CDT, Weight atorvastati 0 Yes 40 mg = 1 M emoria n 40 mg 7-21 tab, PO, l oral tablet 15:42: Bedtime, # Odon 00 30 tab, 0 Refill(s) Pepcid 0 Yes 20 mg = 1 Memori a 7-21 tab, PO, l 15:42: BID, # 60 Roscoe 00 tab, 0 Refill(s) PreserVisio 0 Yes 0 Memori a n 7-21 Refill(s) l 15:42: [place] 00 estradiol 2021-0 Yes 0 Memoria 7-21 Refill(s) l 15:42: [place] 00 atorvastati 2021-0 Yes 40 mg = 1 M emoria n 40 mg 7-21 tab, PO, l oral tablet 15:42: Bedtime, # [place] 00 30 tab, 0 Refill(s) Pepcid 2021-0 Yes 20 mg = 1 Memori a 7-21 tab, PO, l 15:42: BID, # 60 [place] 00 tab, 0 Refill(s) PreserVisio 2021-0 Yes 0 Memori a n 7-21 Refill(s) l 15:42: [place] 00 estradiol 0 Yes 0 Memoria 7-21 Refill(s) l 15:42: Odon 00 atorvastati 0 Yes 40 mg = 1 M emoria n 40 mg 7-21 tab, PO, l oral tablet 15:42: Bedtime, # Odon 00 30 tab, 0 Refill(s) Pepcid 0 Yes 20 mg = 1 Memori a 7-21 tab, PO, l 15:42: BID, # 60 Odon 00 tab, 0 Refill(s) PreserVisio 0 Yes 0 Memori a n 7-21 Refill(s) l 15:42: [place] 00 estradiol 0 Yes 0 Memoria 7-21 Refill(s) l 15:42: [place] 00 atorvastati 0 Yes 40 mg = 1 M emoria n 40 mg 7-21 tab, PO, l oral tablet 15:42: Bedtime, # Rsocoe 00 30 tab, 0 Refill(s) Pepcid 2021-0 Yes 20 mg = 1 Memori a 7-21 tab, PO, l 15:42: BID, # 60 Odon 00 tab, 0 Refill(s) PreserVisio 2021-0 Yes 0 Memori a n 7-21 Refill(s) l 15:42: [place] 00 estradiol 2021-0 Yes 0 Memoria 7-21 Refill(s) l 15:42: Odon 00 amLODIPine 0 Yes 5 mg = 1 Mem oria 5 mg oral 7-21 tab, PO, l tablet 15:41: Daily, # [place] 00 30 tab, 0 Refill(s) hydrALAZINE 0 Yes 0 Memori a 10 mg oral 7-21 Refill(s) l tablet 15:41: amLODIPine 2021-0 Yes 5 mg = 1 Mem oria 5 mg oral 7-21 tab, PO, l tablet 15:41: Daily, # Odon 00 30 tab, 0 Refill(s) hydrALAZINE 2021-0 Yes 0 Memori a 10 mg oral 7-21 Refill(s) l tablet 15:41: amLODIPine 2-0 Yes 5 mg = 1 Mem oria 5 mg oral 7-21 tab, PO, l tablet 15:41: Daily, # Odon 00 30 tab, 0 Refill(s) hydrALAZINE 2021-0 Yes 0 Memori a 10 mg oral 7-21 Refill(s) l tablet 15:41: amLODIPine 2021-0 Yes 5 mg = 1 Mem oria 5 mg oral 7-21 tab, PO, l tablet 15:41: Daily, # Odon 00 30 tab, 0 Refill(s) hydrALAZINE 2021-0 Yes 0 Memori a 10 mg oral 7-21 Refill(s) l tablet 15:41: Aricept 5 2021-0 Yes 5 mg = 1 Trev amy mg oral 4-21 tab, PO, l tablet 19:16: Bedtime, # Catherine nn 00 30 tab, 3 Refill(s), Pharmacy: [facility] [id number], 165.1, cm, 02/25/22 13:57:00 CDT, Height, 90.909, kg, 02/25/22 13:57:00 CDT, Weight Aricept 5 2021-0 Yes 5 mg = 1 Trev amy mg oral 4-21 tab, PO, l tablet 19:16: Bedtime, # Catherine nn 00 30 tab, 3 Refill(s), Pharmacy: [facility] [id number], 165.1, cm, 02/25/22 13:57:00 CDT, Height, 90.909, kg, 02/25/22 13:57:00 CDT, Weight Aricept 5 2-0 Yes 5 mg = 1 Trev amy mg oral 4-21 tab, PO, l tablet 19:16: Bedtime, # Catherine nn 00 30 tab, 3 Refill(s), Pharmacy: [facility] [id number], 165.1, cm, 02/25/22 13:57:00 CDT, Height, 90.909, kg, 02/25/22 13:57:00 CDT, Weight Aricept 5 Yes 5 mg = 1 Trev amy mg oral 4-21 tab, PO, l tablet 19:16: Bedtime, # Catherine nn 00 30 tab, 3 Refill(s), Pharmacy: [facility] [id number], 165.1, cm, 02/25/22 13:57:00 CDT, Height, 90.909, kg, 02/25/22 13:57:00 CDT, Weight No known 2020-11 No [facility] medications 2-31 ity of 11:45: [address] No known 2020-11 No [facility] medications 2-31 ity of 11:45: [address] [facility]-11 Yes 0 Memori a n AREDS [...] 0 Memori a 0-05 Refill(s) l 14:20: 2020-11 Yes Daily, 0 Memori a 0-05 Refill(s) l 14:19: D3 2020-11 Yes 0 Memoria 0-05 Refill(s) l 14:19: 2020-11 Yes Daily, 0 Memori a 0-05 Refill(s) l 14:19: D3 2020-11 Yes 0 Memoria 0-05 Refill(s) l 14:19: 2020-11 Yes Daily, 0 Memori a 0-05 Refill(s) l 14:19: D3 2020-11 Yes 0 Memoria 0-05 Refill(s) l 14:19: 2020-11 Yes Daily, 0 Memori a 0-05 Refill(s) l 14:19: 2020-11 Yes Daily, 0 Memori a 0-05 Refill(s) l 14:19: D3 2020-11 Yes 0 Memoria 0-05 Refill(s) l 14:19: 2020-11 Yes Daily, 0 Memori a 0-05 Refill(s) l 14:19: Omeprazole 2020-11 Yes 20 mg = 1 Me moria 20 MG 0-05 cap, PO, l Enteric 14:18: Daily, 0 Mamadou n Coated 00 Refill(s) Capsule [Prilosec] Citrucel 2020-11 Yes PO, 0 Memoria 0-05 Refill(s) l 14:18: Citrucel 2020-11 Yes PO, 0 Memoria 0-05 Refill(s) l 14:18: Omeprazole 2020-11 Yes 20 mg = 1 Me moria 20 MG 0-05 cap, PO, l Enteric 14:18: Daily, 0 Mamadou n Coated 00 Refill(s) Capsule [Prilosec] Citrucel 2020-11 Yes PO, 0 Memoria 0-05 Refill(s) l 14:18: Omeprazole 2020-11 Yes 20 mg = 1 Me moria 20 MG 0-05 cap, PO, l Enteric 14:18: Daily, 0 Mamadou n Coated 00 Refill(s) Capsule [Prilosec] Citrucel 2020-11 Yes PO, 0 Memoria 0-05 Refill(s) l 14:18: Odon 00 Omeprazole 2020-11 Yes 20 mg = 1 Me moria 20 MG 0-05 cap, PO, l Enteric 14:18: Daily, 0 Mamadou n Coated 00 Refill(s) Capsule [Prilosec] Citrucel 2020-11 Yes PO, 0 Memoria 0-05 Refill(s) l 14:18: Odon 00 Citrucel 2020-11 Yes PO, 0 Memoria 0-05 Refill(s) l 14:18: Odon atorvastati 2020-11 No 40 mg = 1 M emoria n 40 mg 0-05 tab, PO, l oral tablet 14:17: Bedtime, # Odon 00 30 tab, 0 Refill(s) atorvastati 2020-11 No 40 mg = 1 M emoria n 40 mg 0-05 tab, PO, l oral tablet 14:17: Bedtime, # [place]coe 00 30 tab, 0 Refill(s) atorvastati 2020-11 No 40 mg = 1 M emoria n 40 mg 0-05 tab, PO, l oral tablet 14:17: Bedtime, # [place] 00 30 tab, 0 Refill(s) atorvastati 2020-11 No 40 mg = 1 M emoria n 40 mg 0-05 tab, PO, l oral tablet 14:17: Bedtime, # Odon 00 30 tab, 0 Refill(s) Atenolol 50 2020-11 Yes 50 mg = 1 M emoria MG Oral 0-05 tab, PO, l Tablet 14:16: Daily, # Odon 00 30 tab, 0 Refill(s) pravastatin 2020-11 Yes 80 mg = 1 M emoria 80 mg oral 0-05 tab, PO, l tablet 14:16: Bedtime, # Catherine nn 00 30 tab, 0 Refill(s) Hydrochloro 2020-11 Yes 12.5 mg = M emoria thiazide 0-05 1 cap, PO, l 12.5 MG 14:16: Daily, # Mamadou n Oral 00 30 cap, 0 Capsule Refill(s) Atenolol 50 2020-11 Yes 50 mg = 1 M emoria MG Oral 0-05 tab, PO, l Tablet 14:16: Daily, # Odon 00 30 tab, 0 Refill(s) pravastatin 2020-11 Yes 80 mg = 1 M emoria 80 mg oral 0-05 tab, PO, l tablet 14:16: Bedtime, # Catherine nn 00 30 tab, 0 Refill(s) losartan 2020-11 Yes 25 mg = 1 M emoria mg oral 0-05 tab, PO, l tablet 14:16: Daily, # Odon 00 30 tab, 0 Refill(s) Hydrochloro 2020-11 Yes 12.5 mg = M emoria thiazide 0-05 1 cap, PO, l 12.5 MG 14:16: Daily, # Mamadou n Oral 00 30 cap, 0 Capsule Refill(s) Atenolol 50 2020-11 Yes 50 mg = 1 M emoria MG Oral 0-05 tab, PO, l Tablet 14:16: Daily, # [place] 00 30 tab, 0 Refill(s) pravastatin 2020-11 Yes 80 mg = 1 M emoria 80 mg oral 0-05 tab, PO, l tablet 14:16: Bedtime, # Catherine nn 00 30 tab, 0 Refill(s) losartan 2020-11 Yes 25 mg = 1 M emoria mg oral 0-05 tab, PO, l tablet 14:16: Daily, # Odon 00 30 tab, 0 Refill(s) hydrochloro 2020-11 Yes 12.5 mg = M emoria thiazide 0-05 1 cap, PO, l 12.5 mg 14:16: Daily, # Mamadou n oral 00 30 cap, 0 capsule Refill(s) atenolol 50 2020-11 Yes 50 mg = 1 M emoria mg oral 0-05 tab, PO, l tablet 14:16: Daily, # [place] 00 30 tab, 0 Refill(s) hydrochloro 2020-11 Yes 12.5 mg = M emoria thiazide 0-05 1 cap, PO, l 12.5 mg 14:16: Daily, # Mamadou n oral 00 30 cap, 0 capsule Refill(s) atenolol 50 2020-11 Yes 50 mg = 1 M emoria mg oral 0-05 tab, PO, l tablet 14:16: Daily, # [place] 00 30 tab, 0 Refill(s) losartan 2020-11 Yes 25 mg = 1 M emoria mg oral 0-05 tab, PO, l tablet 14:16: Daily, # Odon 00 30 tab, 0 Refill(s) Hydrochloro 2020-11 Yes 12.5 mg = M emoria thiazide 0-05 1 cap, PO, l 12.5 MG 14:16: Daily, # Mamadou n Oral 00 30 cap, 0 Capsule Refill(s) Atenolol 50 2020-11 Yes 50 mg = 1 M emoria MG Oral 0-05 tab, PO, l Tablet 14:16: Daily, # Odon 00 30 tab, 0 Refill(s) pravastatin 2020-11 [...] Oral 00 30 cap, 0 Capsule Refill(s) gabapentin 2020-11 Yes 300 mg = 1 M emoria 300 MG Oral 0-05 cap, PO, l Capsule 14:14: TID, # 90 Catherine nn 00 cap, 0 Refill(s) gabapentin 2020-11 Yes 300 mg = 1 M emoria 300 mg oral 0-05 cap, PO, l capsule 14:14: TID, # 90 Catherine nn 00 cap, 0 Refill(s) gabapentin 2020-11 Yes 300 mg = 1 M emoria 300 MG Oral 0-05 cap, PO, l Capsule 14:14: TID, # 90 Catherine nn 00 cap, 0 Refill(s) gabapentin 2021-1 Yes 300 mg = 1 M emoria 300 MG Oral 0-05 cap, PO, l Capsule 14:14: TID, # 90 Catherine nn 00 cap, 0 Refill(s) gabapentin 2020-11 Yes 300 mg = 1 M emoria 300 mg oral 0-05 cap, PO, l capsule 14:14: TID, # 90 Catherine nn 00 [...] 00:00: tablet dic 00 Sports Medicin e atenolol 25 atenolol 25 [...] e 00:00: dic 00 Sports Medicin e gabapentin gabapentin No gabapentin Amelie 300 mg 300 mg 8-11 300 mg Orthope tablet tablet 00:00: tablet dic 00 Sports Medicin e Prilosec 20 Prilosec 20 No Prilosec Amelie mg mg 8-11 20 mg Orthope capsule,del capsule,del 00:00: capsule,de dic ayed ayed 00 layed Sports release release release Medici n e Restasis Restasis No Restasis A zalea MultiDose MultiDose 8-11 MultiDose Orthope 0.05 % eye 0.05 % eye 00:00: 0.05 % eye dic drops drops 00 drops Sports Medicin e hydrochloro hydrochloro No hydrochlor Amelie thiazide thiazide 8-11 othiazide Or thope 12.5 mg 12.5 mg 00:00: 12.5 mg dic capsule capsule 00 capsule Sports Medicin e atenolol 25 atenolol 25 No atenolol Amelie mg tablet mg tablet 8-11 25 mg Orth ope 00:00: tablet dic 00 Sports Medicin e losartan 25 losartan 25 [...] e 00:00: dic 00 Sports Medicin e Multiple Multiple [...] drops drops 00 drops Sports Medicin e Prilosec 20 Prilosec 20 [...] known No No known Metho di medications -[address] 09:51: [facility] l No known No No known Metho di medications -[address] 09:51: [facility] 11 l [...] Sports Medicin e Mobic 7.5 Mobic 7.5 2018- No Mobic 7.5 Amelie mg tablet 1 [...] NEEDED FOR PAIN tramadol 50 tramadol 50 No tramadol Amelie [...] FOR PAIN Medrol Medrol 2015-11 No Medrol Amelei (Juan R) 4 mg (Juan R) 4 mg 1-14 (Juan R) 4 mg Orthope tablets in tablets in 00:00: tablets in dic a dose pack a dose pack 00 a dose Sports take as take as pack take [facility] directed directed as e directed Medrol Medrol 2015-11 No Medrol Amelie (Juan R) 4 mg (Juan R) 4 mg 1-14 (Juan R) 4 mg Orthope tablets in tablets in 00:00: tablets in dic a dose pack a dose pack 00 a dose Sports take as take as pack take [facility] directed directed as e directed Medrol Medrol [...] Medi woodrow directed directed as e directed hydrochloro hydrochloro No hydrochlor Amelie thiazide thiazide othiazide Or thope 12.5 mg 12.5 mg 12.5 mg dic tablet RX tablet RX tablet RX Sports by other MD by other MD by other Medicin MD fenton acetaminoph acetaminoph No acetaminop Amelie en 300 en 300 hen 300 Orthope mg-codeine mg-codeine mg-codeine dic 30 mg 30 mg 30 mg Sports tablet Take tablet Take tablet Medicin 1 tablet 1 tablet Take 1 e every 6 every 6 tablet hours by hours by every 6 oral route. oral route. hours by oral route. amlodipine amlodipine No amlodipine Amelie 5 mg tablet 5 mg tablet 5 mg O rthope tablet dic [employer] Medicin e amlodipine amlodipine No amlodipine Amelie [...] RX dic MD BILLY by other Sports Medicria fenton atorvastati atorvastati No atorvastat Amelie n 40 mg n 40 mg in 40 mg Ortho pe tablet tablet tablet dic [employer] Medicin e azelaic azelaic No azelaic Amelie [...] PO BID PO BID Sports Medicin e ciclopirox ciclopirox No ciclopirox Amelie 8 % topical 8 % topical 8 % O rthope solution solution topical dic solution Sports Medicin e cyclosporin cyclosporin No cyclospori Amelie e 0.05 % e 0.05 % ne 0.05 % Or thope eye drops eye drops eye drops dic in a in a in a Sports dropperette dropperette dropperett Medicin RX by other RX by other e RX by e MD BILLY other donepezil 5 donepezil 5 No donepezil Amelie [...] dic tablet tablet tablet Sports Medicin e fluconazole fluconazole No fluconazol Amelie 150 mg 150 mg e 150 mg Orthope tablet tablet tablet dic Sports Medicin e gabapentin gabapentin No gabapentin Amelie 100 mg 100 mg 100 mg Orthope capsule RX capsule RX capsule RX dic by other MD by other MD by other Sports MD Medicin e gabapentin gabapentin No gabapentin Amelie 300 mg 300 mg 300 mg Orthope capsule capsule capsule dic Sports Medicin e galantamine galantamine No galantamin Amelie 4 mg tablet 4 mg tablet e 4 mg Orthope tablet dic Sports Medicin e galantamine galantamine No galantamin Amelie 8 mg tablet 8 mg tablet e 8 mg Orthope tablet dic Sports Medicin e hydralazine hydralazine No hydralazin Amelie 10 mg 10 mg e 10 mg [facility] tablet tablet tablet dic [facility] hydrochloro hydrochloro No hydrochlor Amelie thiazide thiazide othiazide Or thope 12.5 mg 12.5 mg 12.5 mg dic capsule capsule capsule [facility] hydrochloro hydrochloro No hydrochlor Amelie thiazide thiazide othiazide Or thope 12.5 mg 12.5 mg 12.5 mg dic tablet RX tablet RX tablet RX Sports by other MD by other MD by other Medicin MD e hydrochloro hydrochloro No hydrochlor Maelie thiazide 25 thiazide 25 othiazide [facility] mg tablet mg tablet 25 mg dic tablet [facility] hydrocodone hydrocodone No hydrocodon [facility] 10 10 e 10 [facility] mg-acetamin mg-acetamin mg-acetami dic ophen 325 ophen 325 nophen 325 [facility] mg tablet mg tablet mg tablet Medicin e Jardiance Jardiance No Jardiance [facility] 10 mg 10 mg 10 mg [facility] tablet tablet tablet dic [facility] levocetiriz levocetiriz No levocetiri [facility] ine 5 mg ine 5 mg zine 5 mg Or [facility]ope tablet tablet tablet dic [facility] losartan losartan No losartan Aza [...] as directed as directed as e directed metoprolol metoprolol No metoprolol [facility] succinate succinate succinate [facility] ER 50 mg ER 50 mg ER 50 mg dic tablet,exte tablet,exte tablet,ext [facility] nded nded ended Medicin release 24 release 24 release 24 e hr hr hr mirtazapine mirtazapine No mirtazapin [facility] 7.5 mg 7.5 mg e 7.5 mg [facility] tablet tablet tablet dic [facility] Nexium Nexium No Nexium [facility] Packet 10 [...] drops RX dic MD by other [facility] pravastatin pravastatin No pravastati [facility] 80 mg 80 mg n 80 mg [facility] tablet RX tablet RX tablet RX dic by other MD by other MD by other [facility] e prednisolon prednisolon No prednisolo [facility] e acetate 1 e acetate 1 ne acetate [facility] % eye % eye 1 % eye dic drops,suspe drops,suspe drops,susp Sports nsion nsion ension Medicin e Nexium Nexium No Nexium [facility] Packet 10 Packet 10 Packet 10 [facility] mg granules mg granules mg d ic delayed delayed granules Sport s release for release for delayed Medicin susp RX by susp RX by release e other MD rushing MD for susp RX by other prednisone prednisone No prednisone [facility] 10 mg 10 mg 10 mg [facility] tablet tablet tablet dic [facility] sulfamethox sulfamethox No sulfametho [facility] azole 800 [...] edicin hr hr release 24 e hr Pataday 0.2 Pataday 0.2 No Pataday [facility]ie [...] by other e RX by Alexandra fenton Zofran 4 mg Zofran 4 mg [...] MD by other MD by other e MD amoxicillin amoxicillin No amoxicilli [facility] 500 mg 500 mg n 500 mg [facility] capsule capsule capsule dic [facility] atenolol 50 atenolol 50 No atenolol [facility] mg tablet mg tablet 50 mg [facility] RX by other RX by other tablet RX dic MD by other Sports MD Medicin e [...] Medicin e No known No Methodi medications [facility] ([facility] l atenolol 50 atenolol 50 No 1 [...] route. nystatin-tr nystatin-tr No nystatin-t [facility] iamcinolone [facility] 100,000 100,000 ne 100,000 unit/gram-0 unit/gram-0 unit/gram- .1 % .1 % 0.1 % topical topical topical ointment ointment ointment APPLY TO APPLY TO APPLY TO THE THE THE AFFECTED AFFECTED AFFECTED AREA(S) BY AREA(S) BY AREA(S) BY TOPICAL TOPICAL TOPICAL ROUTE 2 ROUTE 2 ROUTE 2 TIMES PER TIMES PER TIMES PER DAY DAY DAY Pat No [facility] Once Daily Once Daily Once Daily [...] 150 mg [facility] tablet tablet tablet dic [facility] gabapentin gabapentin No gabapentin [facility] 100 mg 100 mg 100 mg [facility] capsule RX capsule RX capsule RX dic by other MD by other MD by other Sports MD Medicin e gabapentin gabapentin No gabapentin [facility] 300 mg 300 mg 300 mg [facility] capsule capsule capsule dic [facility] galantamine galantamine No galantamin [facility] 4 mg tablet 4 mg tablet e 4 mg [facility] tablet dic [facility] galantamine galantamine No galantamin [facility] 8 mg tablet 8 mg tablet e 8 mg [facility] tablet dic [facility] hydralazine hydralazine No hydralazin [facility] 10 mg 10 mg e 10 mg [facility] tablet tablet tablet dic [facility] hydrochloro hydrochloro No hydrochlor [facility] thiazide thiazide othiazide Or [facility] 12.5 mg 12.5 mg 12.5 mg dic capsule capsule capsule [facility] hydrochloro hydrochloro No hydrochlor [facility] thiazide thiazide othiazide [facility] 12.5 mg 12.5 mg 12.5 mg dic tablet RX tablet RX tablet RX Sports by other MD by other MD by other Medicin MD e hydrochloro hydrochloro No hydrochlor [facility] thiazide 25 [...] tablet tablet dic [facility] losartan losartan No losartan Aza [...] drops RX dic MD by other Sports Medicin noy pravastatin pravastatin No pravastati [facility] 80 mg 80 mg n 80 mg [facility] tablet RX tablet RX tablet RX dic by other MD by other MD by other Sports MD Medicin e prednisolon prednisolon No prednisolo [facility] e acetate [...] by other e RX by Alexandra fenton sulfamethox sulfamethox No sulfametho [facility] azole [...] RX by other tablet RX dic MD by other Sports MD Aelxandra fenton Celebrex Celebrex No Celebrex Aza isa [...] by other MD by other Sports MD Morris e Restasis Restasis No Restasis Aza isa [...] other MD by other MD by other noy BILLY atenolol 50 atenolol 50 No atenolol [facility] mg tablet mg tablet 50 mg [facility] RX by other RX by other tablet RX dic MD BILLY by other Sports Medicria fenton Celebrex Celebrex No Celebrex Aza isa [...] susp RX by susp RX by release noy rushing MD for susp RX by other [...] other MD by other MD by other noy BILLY atenolol 50 atenolol 50 No atenolol [...] other MD by other MD by other Medicria fenton Nexium Nexium No Nexium [facility] Packet [...] RX dic MD BILLY by other Sports Medicin noy pravastatin pravastatin No pravastati [facility] 80 mg [...] fenton amlodipine amlodipine No amlodipine [facility] 5 mg [...] RX by other tablet RX dic MD by other Sports Medicin e atorvastati atorvastati No atorvastat [facility]ie [...] dic tablet tablet tablet [facility] fluconazole fluconazole No fluconazol [facility] 150 mg 150 mg e 150 mg [facility] tablet tablet tablet dic [facility] gabapentin gabapentin No gabapentin [facility] 100 mg 100 mg 100 mg [facility] capsule RX capsule RX capsule RX dic by other MD by other MD by other Sports MD Medicin e gabapentin gabapentin No gabapentin [facility] 300 mg 300 mg 300 mg [facility] capsule capsule capsule dic [facility] galantamine galantamine No galantamin [facility] 4 mg tablet 4 mg tablet e 4 mg [facility] tablet dic [facility] e galantamine galantamine No galantamin [facility] 8 mg tablet 8 mg tablet e 8 mg [facility] tablet dic [facility] hydralazine hydralazine No hydralazin [facility] 10 mg 10 mg e 10 mg [facility] tablet tablet tablet dic [facility] hydrochloro hydrochloro No hydrochlor [facility] thiazide thiazide othiazide Or [facility] 12.5 mg 12.5 mg 12.5 mg dic capsule capsule capsule [facility] hydrochloro hydrochloro No hydrochlor [facility] thiazide thiazide othiazide Or [facility] 12.5 mg 12.5 mg 12.5 mg dic tablet RX tablet RX tablet RX Sports by other MD by other MD by other Medicin MD e hydrochloro hydrochloro No hydrochlor [facility] thiazide 25 [...] tablet tablet dic [facility] losartan losartan No losartan Aza [...] as directed as directed as e directed metoprolol metoprolol No metoprolol [facility] succinate succinate succinate [facility] ER 50 mg ER 50 mg ER 50 mg dic tablet,exte tablet,exte tablet,ext Sports nded nded ended Medicin release 24 release 24 release 24 e hr hr hr Nexium Nexium No Nexium [facility] Packet 10 Packet 10 Packet 10 [facility] mg granules mg granules mg d ic delayed delayed granules Sport s release for release for delayed Medicin susp RX by susp RX by release e other MD rushing MD for susp RX by other nystatin-tr nystatin-tr No nystatin-t [facility] iamcinolone iamcinolone [...] other MD by other [facility] e prednisolon prednisolon No prednisolo [facility] e acetate [...] by other e RX by Alexandra fenton sulfamethox sulfamethox No sulfametho [facility] azole [...] hr amlodipine amlodipine No amlodipine [facility] 5 mg [...] dic MD BILLY by other Sports MD Medicin e atorvastati [...] dic tablet tablet tablet [facility] fluconazole fluconazole No fluconazol [facility] 150 mg 150 mg e 150 mg [facility] tablet tablet tablet dic [facility] e gabapentin gabapentin No gabapentin [facility] 100 mg 100 mg 100 mg [facility] capsule RX capsule RX capsule RX dic by other MD by other MD by other Sports MD Medicin e gabapentin gabapentin No gabapentin [facility] 300 mg 300 mg 300 mg [facility] capsule capsule capsule dic [facility] e galantamine galantamine No galantamin [facility] 4 mg tablet 4 mg tablet e 4 mg [facility] tablet dic Sports Medicin e galantamine galantamine No galantamin [facility] 8 mg tablet 8 mg tablet e 8 mg [facility] tablet dic [facility] e hydralazine hydralazine No hydralazin [facility] 10 mg 10 mg e 10 mg [facility] tablet tablet tablet dic [facility] e hydrochloro hydrochloro No hydrochlor [facility] thiazide thiazide othiazide Or [facility] 12.5 mg 12.5 mg 12.5 mg dic capsule capsule capsule [facility] hydrochloro hydrochloro No hydrochlor [facility] thiazide thiazide othiazide [facility] 12.5 mg 12.5 mg 12.5 mg dic tablet RX tablet RX tablet RX Sports by other MD by other MD by other Medicin MD e hydrochloro hydrochloro No hydrochlor [facility]ie thiazide 25 [...] tablet tablet dic [facility] losartan losartan No losartan Aza [...] as directed as directed as e directed metoprolol metoprolol No metoprolol [facility] succinate succinate succinate [facility] ER 50 mg ER 50 mg ER 50 mg dic tablet,exte tablet,exte tablet,ext Sports nded nded ended Medicin release 24 release 24 release 24 e hr hr hr mirtazapine mirtazapine No mirtazapin [facility] 7.5 mg 7.5 mg e 7.5 mg [facility] tablet tablet tablet dic [facility] Nexium Nexium No Nexium [facility] Packet 10 Packet 10 Packet 10 [facility] mg granules mg granules mg d ic delayed delayed granules Sport s release for release for delayed Medicin susp RX by susp RX by release e other other MD for susp RX by other [...] by other MD by other Sports MD Medicin e prednisolon prednisolon No prednisolo [facility] e acetate [...] by other e RX by Alexandra fenton sulfamethox sulfamethox No sulfametho [facility] azole [...] hr amlodipine amlodipine No amlodipine [facility] 5 mg [...] RX by other tablet RX dic MD by other Sports MD Medicin e [...] PO BID PO BID [facility] ciclopirox ciclopirox No ciclopirox [facility] 8 % topical 8 % topical 8 % [facility] solution solution topical dic solution [facility] donepezil 5 donepezil 5 [...] dic tablet tablet tablet [facility] fluconazole fluconazole No fluconazol [facility] 150 mg 150 mg e 150 mg [facility] tablet tablet tablet dic [facility] e gabapentin gabapentin No gabapentin [facility] 100 mg 100 mg 100 mg [facility] capsule RX capsule RX capsule RX dic by other MD by other MD by other Sports MD Medicin e gabapentin gabapentin No gabapentin [facility] 300 mg 300 mg 300 mg [facility] capsule capsule capsule dic [facility] e galantamine galantamine No galantamin [facility] 4 mg tablet 4 mg tablet e 4 mg [facility] tablet dic Sports [facility]in e galantamine galantamine No galantamin [facility] 8 mg tablet 8 mg tablet e 8 mg [facility] tablet dic [facility] e hydralazine hydralazine No hydralazin [facility] 10 mg 10 mg e 10 mg [facility] tablet tablet tablet dic [facility] e hydrochloro hydrochloro No hydrochlor [facility] thiazide thiazide othiazide Or [facility] 12.5 mg 12.5 mg 12.5 mg dic capsule capsule capsule [facility] hydrochloro hydrochloro No hydrochlor [facility] thiazide thiazide othiazide [facility] 12.5 mg 12.5 mg 12.5 mg dic tablet RX tablet RX tablet RX Sports by other by other MD by other Medicin MD e hydrochloro hydrochloro No hydrochlor Am[facility]ie thiazide 25 [...] tablet tablet dic [facility] e losartan losartan No losartan Aza [...] as directed as directed as e directed metoprolol metoprolol No metoprolol [facility] succinate succinate succinate [facility] ER 50 mg ER 50 mg ER 50 mg dic tablet,exte tablet,exte tablet,ext Sports nded nded ended Medicin release 24 release 24 release 24 e hr hr hr mirtazapine mirtazapine No mirtazapin [facility]ie 7.5 mg 7.5 mg e 7.5 mg [facility] tablet tablet tablet dic [facility] Nexium Nexium No Nexium [facility] Packet 10 Packet 10 Packet 10 [facility] mg granules mg granules mg d ic delayed delayed granules Sport s release for release for delayed Medicin susp RX by susp RX by lisa fenton other MD rushing MD for susp RX by other nystatin-tr nystatin-tr No nystatin-t [facility] iamcinolone iamcinolone [...] MD by other MD by other Sports Medicria fenton prednisolon prednisolon No prednisolo Am[facility]ie e acetate [...] by other e RX by Alexandra fenton sulfamethox sulfamethox No sulfametho Am[facility]ie azole [...] edicin hr hr release 24 e hr acetaminoph acetaminoph No acetaminop [facility] en 300 en 300 hen 300 [facility] mg-codeine mg-codeine mg-codeine dic 30 mg 30 mg 30 mg Sports tablet Take tablet Take tablet Medicin 1 tablet 1 tablet Take 1 e every 6 every 6 tablet hours by hours by every 6 oral route. oral route. hours by oral route. amlodipine amlodipine No amlodipine [facility]ie 5 mg [...] dic MD BILLY by other Sports MD Medicin e atorvastati [...] PO BID PO BID [facility] e ciclopirox ciclopirox No ciclopirox [facility] 8 % topical 8 % topical 8 % [facility] solution solution topical dic solution [facility] e donepezil 5 donepezil 5 [...] dic tablet tablet tablet Sports [facility] e fluconazole fluconazole No fluconazol Am[facility]ie 150 mg 150 mg e 150 mg [facility] tablet tablet tablet dic [facility] e gabapentin gabapentin No gabapentin Am[facility]ie 100 mg 100 mg 100 mg [facility] capsule RX capsule RX capsule RX dic by other MD by other MD by other Sports MD Medicin e gabapentin gabapentin No gabapentin Am[facility]ie 300 mg 300 mg 300 mg [facility] capsule capsule capsule dic [facility] e galantamine galantamine No galantamin Am[facility]ie 4 mg tablet 4 mg tablet e 4 mg [facility] tablet dic Sports Medicin e galantamine galantamine No galantamin Am[facility]ie 8 mg tablet 8 mg tablet e 8 mg [facility] tablet dic [facility] Medicin e hydralazine hydralazine No hydralazin Am[facility]ie 10 mg 10 mg e 10 mg [facility] tablet tablet tablet dic [facility] e hydrochloro hydrochloro No hydrochlor [facility]ie thiazide thiazide othiazide [facility] 12.5 mg 12.5 mg 12.5 mg dic capsule capsule capsule [facility] hydrochloro hydrochloro No hydrochlor Am[facility]ie thiazide thiazide othiazide [facility] 12.5 mg 12.5 mg 12.5 mg dic tablet RX tablet RX tablet RX Sports by other MD by other MD by other Medicin MD e hydrochloro hydrochloro No hydrochlor Am[facility]ie thiazide 25 thiazide 25 othiazide [facility] mg tablet mg tablet 25 mg dic tablet [facility] hydrocodone hydrocodone No hydrocodon Am[facility]ie 10 10 e 10 [facility] mg-acetamin mg-acetamin mg-acetami dic ophen 325 ophen 325 nophen 325 [facility] mg tablet mg tablet mg tablet Medicin e Jardiance Jardiance No Jardiance Am[facility]ie 10 mg 10 mg 10 mg [facility] tablet tablet tablet dic [facility] e levocetiriz levocetiriz No levocetiri [facility] ine 5 mg ine 5 mg zine 5 mg [facility] tablet tablet tablet dic [facility] e losartan losartan No losartan Aza [...] as directed as directed as e directed metoprolol metoprolol No metoprolol [facility]ie succinate succinate succinate [facility] ER 50 mg ER 50 mg ER 50 mg dic tablet,exte tablet,exte tablet,ext Sports nded nded ended Medicin release 24 release 24 release 24 e hr hr hr mirtazapine mirtazapine No mirtazapin Am[facility]ie 7.5 mg 7.5 mg e 7.5 mg [facility] tablet tablet tablet dic [facility] Nexium Nexium No Nexium Am[facility]ie Packet 10 [...] drops RX dic MD by other Sports Medicria fenton pravastatin pravastatin No pravastati Am[facility]ie 80 mg 80 mg n 80 mg [facility] tablet RX tablet RX tablet RX dic by other MD by other MD by other Sports Medicin e prednisolon prednisolon No prednisolo Amelie e acetate [...] MD by other MD by other e sulfamethox sulfamethox No sulfametho Am[facility]ie azole 800 [...] edicin hr hr release 24 e hr acetaminoph acetaminoph No acetaminop Am[facility]ie en 300 en 300 hen 300 [facility] mg-codeine mg-codeine mg-codeine dic 30 mg 30 mg 30 mg Sports tablet Take tablet Take tablet Medicin 1 tablet 1 tablet Take 1 e every 6 every 6 tablet hours by hours by every 6 oral route. oral route. hours by oral route. atenolol 50 atenolol 50 No atenolol [facility] mg tablet mg tablet 50 mg [facility] RX by other RX by other tablet RX dic MD BILLY by other Sports Medicin e amlodipine amlodipine No amlodipine Am[facility]ie 5 mg tablet 5 mg tablet 5 mg [facility] tablet dic [employer] Medicin e amlodipine amlodipine No amlodipine Am[facility]ie 5 5 5 [facility] mg-valsarta mg-valsarta mg-valsart dic n 160 mg n 160 mg an 160 mg Sp orts tablet RX tablet RX tablet RX Medicin by other MD by other MD by other e amoxicillin amoxicillin No amoxicilli Am[facility]ie 500 mg 500 mg n 500 mg [facility] capsule capsule capsule dic mSpokein e atenolol 50 atenolol 50 No atenolol [facility] mg tablet mg tablet 50 mg [facility] RX by other RX by other tablet RX dic MD BILLY by other Sports Medicin e atorvastati atorvastati No atorvastat Am[facility]ie n 40 mg n 40 mg in 40 mg [facility] pe tablet tablet tablet dic [employer] Medicin e azelaic azelaic No azelaic Amelie [...] PO BID PO BID [facility] Medic[facility] e Celebrex Celebrex No Celebrex Aza isa 200 mg 200 mg 200 mg [facility] capsule 1 capsule 1 capsule 1 dic PO BID PO BID PO BID [facility] Medic[facility] e ciclopirox ciclopirox No ciclopirox [facility] 8 % topical 8 % topical 8 % [facility] solution solution topical dic solution Sports Medicin e donepezil 5 donepezil 5 [...] dic tablet tablet tablet Sports Medicin e fluconazole fluconazole No fluconazol Amelie 150 mg 150 mg e 150 mg [facility] tablet tablet tablet dic Sports Medicin e gabapentin gabapentin No gabapentin Am[facility]ie 100 mg 100 mg 100 mg [facility] capsule RX capsule RX capsule RX dic by other MD by other MD by other Sports MD Medicin e gabapentin gabapentin No gabapentin Amelie 300 mg 300 mg 300 mg [facility] capsule capsule capsule dic [facility] Medicin e galantamine galantamine No galantamin Amelie 4 mg tablet 4 mg tablet e 4 mg [facility] tablet dic Sports Medicin e galantamine galantamine No galantamin Amelie 8 mg tablet 8 mg tablet e 8 mg [facility] tablet dic Sports Medicin e hydralazine hydralazine No hydralazin Amelie 10 mg 10 mg e 10 mg [facility] tablet tablet tablet dic [facility] Medicin e hydrochloro hydrochloro No hydrochlor Am[facility]ie thiazide thiazide othiazide Or [facility] 12.5 mg 12.5 mg 12.5 mg dic capsule capsule capsule [facility] e hydrochloro hydrochloro No hydrochlor Am[facility]ie thiazide thiazide othiazide [facility] 12.5 mg 12.5 mg 12.5 mg dic tablet RX tablet RX tablet RX Sports by other MD by other MD by other Medicin MD e hydrochloro hydrochloro No hydrochlor Am[facility]ie thiazide 25 thiazide 25 othiazide [facility] mg tablet mg tablet 25 mg dic tablet [facility] hydrocodone hydrocodone No hydrocodon Amelie 10 10 e 10 [facility] mg-acetamin mg-acetamin mg-acetami dic ophen 325 ophen 325 nophen 325 [facility] mg tablet mg tablet mg tablet Medicin e Jardiance Jardiance No Jardiance Amelie 10 mg 10 mg 10 mg [facility] tablet tablet tablet dic [facility] Medicin e gabapentin gabapentin No gabapentin Am[facility]ie 100 mg 100 mg 100 mg [facility] capsule RX capsule RX capsule RX dic by other MD by other MD by other Sports MD Medicin e levocetiriz levocetiriz No levocetiri [facility]ie ine 5 mg ine 5 mg zine 5 mg Or [facility] tablet tablet tablet dic Sports Medicin e losartan losartan No losartan Aza [...] as directed as directed as e directed metoprolol metoprolol No metoprolol [facility] succinate succinate succinate [facility] ER 50 mg ER 50 mg ER 50 mg dic tablet,exte tablet,exte tablet,ext [facility] nded nded ended Medicin release 24 release 24 release 24 e hr hr hr mirtazapine mirtazapine No mirtazapin [facility]el[facility] 7.5 mg 7.5 mg e 7.5 mg [facility] tablet tablet tablet dic [facility] e Nexium Nexium No Nexium [facility] Packet 10 [...] RX dic MD by other Sports MD Morris e pravastatin pravastatin No pravastati Am[facility] 80 mg 80 mg n 80 mg [facility] tablet RX tablet RX tablet RX dic by other MD by other MD by other Sports Medicin e prednisolon prednisolon No prednisolo Am[facility]ie e acetate [...] RX by other e RX by Alexandra rushing MD e sulfamethox sulfamethox No sulfametho [facility] azole 800 [...] edicin hr hr release 24 e hr Immunizations Ordered Immunization Filled Immunization Date Status Commen ts Source Name Name pneumococcal pneumococcal 2022-03-30 Completed [facility] polysaccharide PPV23 polysaccharide 00:00:00 [facility] PPV23 [facility] pneumococcal pneumococcal 2022-03-30 Completed [facility] polysaccharide PPV23 polysaccharide 00:00:00 [facility] PPV23 [facility] pneumococcal pneumococcal 2022-03-30 Completed [facility] polysaccharide PPV23 polysaccharide 00:00:00 [facility] PPV23 [facility] pneumococcal pneumococcal 2022-03-30 Completed [facility] polysaccharide PPV23 polysaccharide 00:00:00 [facility] PPV23 [facility] pneumococcal pneumococcal 2022-03-30 Completed [facility] polysaccharide PPV23 polysaccharide 00:00:00 [facility] PPV23 [facility] pneumococcal pneumococcal 2022-03-30 Completed [facility] polysaccharide PPV23 polysaccharide 00:00:00 [facility] PPV23 [facility] pneumococcal pneumococcal 2022-03-30 Completed [facility] polysaccharide PPV23 polysaccharide 00:00:00 [facility] PPV23 [facility] pneumococcal pneumococcal 2022-03-30 Completed [facility] polysaccharide PPV23 polysaccharide 00:00:00 [facility] PPV23 [facility] pneumococcal pneumococcal 2022-03-30 Completed [facility] polysaccharide PPV23 polysaccharide 00:00:00 [facility] PPV23 [facility] pneumococcal pneumococcal 2022-03-30 Completed [facility] polysaccharide PPV23 polysaccharide 00:00:00 [facility] PPV23 [facility] pneumococcal pneumococcal 2022-03-30 Completed [facility] polysaccharide PPV23 polysaccharide 00:00:00 [facility] PPV23 [facility] COVID-19 COVID-19 2021-09-14 Completed [facility] (SARS-COV-2) (SARS-COV-2) 00:00:00 vaccine, unspecified vaccine, unspecified PFIZER COVID-19 MRNA 2020-12-24 Completed [facility] VACCINATION 00:00:00 [facility] PFIZER COVID-19 MRNA 2020-12-24 Completed [facility] VACCINATION 00:00:00 [facility] PFIZER COVID-19 MRNA 2020-12-24 Completed [facility] VACCINATION 00:00:00 [facility] PFIZER COVID-19 MRNA 2020-12-24 Completed [facility] VACCINATION 00:00:00 [facility] COVID-19 COVID-19 2020-12-24 Completed [facility] (SARS-COV-2) (SARS-COV-2) 00:00:00 vaccine, unspecified vaccine, unspecified PFIZER COVID-19 MRNA 2020-12-03 Completed [facility] VACCINATION 00:00:00 [facility] PFIZER COVID-19 MRNA 2020-12-03 Completed [facility] VACCINATION 00:00:00 [facility] PFIZER COVID-19 MRNA 2020-12-03 Completed [facility] VACCINATION 00:00:00 [facility] PFIZER COVID-19 MRNA 2020-12-03 Completed [facility] VACCINATION 00:00:00 [facility] COVID-19 COVID-19 2020-11-27 Completed [facility] (SARS-COV-2) (SARS-COV-2) 00:00:00 vaccine, unspecified vaccine, unspecified Zoster Vaccine 2020-09-25 Completed [facility] Zoster Vaccine 2020-09-25 Completed [facility]:00:00 [facility] Zoster Vaccine 2020-09-25 Completed [facility] 00:00:00 [facility] Zoster Vaccine 2020-09-25 Completed [facility] 00:00:00 [facility] FLUZONE HIGH-DOSE PF 2020-08-25 Completed [facility] 00:00:00 [facility] FLUZONE HIGH-DOSE PF 2020-08-25 Completed [facility] 00:00:00 [facility] FLUZONE HIGH-DOSE PF 2020-08-25 Completed [facility] 00:00:00 [facility] FLUZONE HIGH-DOSE PF 2020-08-25 Completed [facility] 00:00:00 [facility] Zoster Vaccine 2020-07-28 Completed [facility] 00:00:00 [facility] Zoster Vaccine 2020-07-28 Completed [facility] 00:00:00 [facility] Zoster Vaccine 2020-07-28 Completed [facility] 00:00:00 [facility] Zoster Vaccine 2020-07-28 Completed [facility] 00:00:00 [facility] PFIZER COVID-19 MRNA Unknown Completed [facility] FLUZONE HIGH-DOSE PF Unknown Completed [facility] Zoster Vaccine Unknown Completed [facility] Zoster Vaccine Unknown Completed [facility] PFIZER COVID-19 MRNA Unknown Completed [facility] Vital Signs Vital Name Observation Time Observation Value Comments Source Height 2023-03-03 00:00:00 65 [in_i] [facility] BMI (Body Mass 2023-03-03 00:00:00 32.9 kg/m2 [facility] Body Weight 2023-03-03 00:00:00 198 [lb_av] [facility] Height 2023-02-14 00:00:00 65 [in_i] [facility] BMI (Body Mass 2023-02-14 00:00:00 32.9 kg/m2 [facility] Body Weight 2023-02-14 00:00:00 198 [lb_av] [facility] Height 2022-12-10 00:00:00 65 [in_i] [facility] BMI (Body Mass 2022-12-10 00:00:00 32.9 kg/m2 [facility]) [facility] Body Weight 2022-12-10 00:00:00 198 [lb_av] [facility] Height 2022-10-15 00:00:00 65 [in_i] [facility] BMI (Body Mass 2022-10-15 00:00:00 32.9 kg/m2 [facility] Index) Sports Medicine Body Weight 2022-10-15 00:00:00 198 [lb_av] [facility] Height 2022-09-03 00:00:00 65 [in_i] Amelie O [...] BMI (Body Mass 2022-06-09 00:00:00 32.9 kg/m2 [facility] Index) Sports Medicine Body Weight 2022-06-09 00:00:00 198 [lb_av] [facility] BP Diastolic 2022-06-03 00:00:00 82 mm[Hg] Margaritaia Facundo edical Height 2022-06-03 00:00:00 65 [in_i] Margaritaia Facundo edical BMI (Body Mass 2022-06-03 00:00:00 33.4 kg/m2 [facility] Index) BP Systolic 2022-06-03 00:00:00 130 mm[Hg] Rachael Loredo edical Body Weight 2022-06-03 00:00:00 200.6 [lb_av] [facility] Height 2022-06-02 00:00:00 65 [in_i] [facility] BMI (Body Mass 2022-06-02 00:00:00 32.9 kg/m2 [facility]) Sports [facility] Body Weight 2022-06-02 00:00:00 198 [lb_av] [facility] Systolic (mm Hg) 2023-08-09 15:15:00 Trev rial [place] Diastolic (mm Hg) 2023-08-09 15:15:00 Mem orial [place] Heart Rate 2023-08-09 15:15:00 [facility] [place] Height 2023-08-09 15:15:00 5 [ft_i] [facility] Weight 2023-08-09 15:15:00 [facility] [place] BMI Calculated 2023-08-09 15:15:00 Memori al [facility] Systolic (mm Hg) 2023-02-07 15:06:00 Trev rial Odon Diastolic (mm Hg) 2023-02-07 15:06:00 Mem orial [place] Heart Rate 2023-02-07 15:06:00 [facility] [place] Height 2023-02-07 15:06:00 5 [ft_i] [facility] [place] Weight 2023-02-07 15:06:00 [facility] BMI Calculated 2023-02-07 15:06:00 Memori al [place] Systolic (mm Hg) 2022-11-09 17:19:00 Trev rial Odon Diastolic (mm Hg) 2022-11-09 17:19:00 Mem orial [place] Heart Rate 2022-11-09 17:19:00 [facility] [place] Height 2022-11-09 17:19:00 5 [ft_i] [facility] [place] Weight 2022-11-09 17:19:00 [facility] [place] BMI Calculated 2022-11-09 17:19:00 Memori al [place] Systolic (mm Hg) 2022-08-06 16:59:00 Trev rial Odon Diastolic (mm Hg) 2022-08-06 16:59:00 Mem orial [place] Heart Rate 2022-08-06 16:59:00 [facility] Respitory Rate 2022-08-06 16:59:00 Memori al [facility] Height 2022-08-06 16:59:00 162.56 cm [facility] Weight 2022-08-06 16:59:00 [facility] [place] BMI Calculated 2022-08-06 16:59:00 Memori al [facility] Systolic (mm Hg) 2022-05-27 15:23:00 Trev rial [place] Diastolic (mm Hg) 2022-05-27 15:23:00 Mem orial [place] Heart Rate 2022-05-27 15:23:00 [facility] Respitory Rate 2022-05-27 15:23:00 Memori al [place] Height 2022-05-27 15:23:00 162.56 cm [facility] [place] Weight 2022-05-27 15:23:00 [facility] BMI Calculated 2022-05-27 15:23:00 Memori al [facility] Systolic (mm Hg) 2022-02-25 18:50:00 Trev rial [place] Diastolic (mm Hg) 2022-02-25 18:50:00 Mem orial [place] Heart Rate 2022-02-25 18:50:00 [facility] [place] Respitory Rate 2022-02-25 18:50:00 Memori al [place] Height 2022-02-25 18:50:00 165.1 cm [facility] Weight 2022-02-25 18:50:00 [facility] BMI Calculated 2022-02-25 18:50:00 Memori [facility] Systolic (mm Hg) 2021-09-04 16:10:00 Trev rial Odon Diastolic (mm Hg) 2021-09-04 16:10:00 Mem orial [place] Heart Rate 2021-09-04 16:10:00 [facility] Respitory Rate 2021-09-04 16:10:00 [facility] Height 2021-09-04 16:10:00 162.56 cm [facility] Weight 2021-09-04 16:10:00 [facility] BMI Calculated 2021-09-04 16:10:00 Memori al [place] Systolic (mm Hg) 2021-08-11 13:57:00 Trev rial [place] Diastolic (mm Hg) 2021-08-11 13:57:00 Mem orial [place]don Heart Rate 2021-08-11 13:57:00 [facility] [place] Respitory Rate 2021-08-11 13:57:00 Memori al Odon Height 2021-08-11 13:57:00 162.56 cm [facility] Weight 2021-08-11 13:57:00 [facility] BMI Calculated 2021-08-11 13:57:00 Gustabo Chin Procedures Procedure Date / Time Performing Clinician Source Performed XR, finger(s), 2 or 2023-02-14 00:00:00 [facility] more view Sports Medicine XR, knee, 3 view 2022-10-15 00:00:00 [facility] Total Replacement of 2022-08-18 00:00:00 [facility] Left Knee Joint Sports Medicine XR, knee, 3 view 2022-06-25 00:00:00 [facility] MRI, shoulder, w/o 2022-06-02 00:00:00 Am[facility]ie Or thopedic contrast Sports Medicine Bladder Surgery 2019-11-07 00:00:00 [facility] Correction of Scoliosis 2017-11-07 00:00:00 [facility] Hysterectomy with 2001-11-07 00:00:00 [facility] Oopherectomy (Ovaries Removed) Knee [facility] [place] replacement<sup>1</sup> Lumbar discectomy [facility] nn Tubal Ligation [facility] Plan of Care Planned Activity Planned Date Details Comments Source Future Scheduled Test 2023-08-22 RSV VACCINES > 60 YR [facility] 14:41:34 (1 - 1-dose 60+ series) [code = RSV VACCINES > 60 YR (1 - 1-dose 60+ series)] Future Scheduled Test 2023-08-22 65+ PNEUMOCOCCAL [facility] 14:41:34 VACCINE (1 - PCV) [code = 65+ PNEUMOCOCCAL VACCINE (1 - PCV)] Future Scheduled Test 2023-08-22 COVID-19 VACCINE ([address] [place] [address] 14:41:34 season) [code = COVID-19 VACCINE ( - season)] Future Scheduled Test 2023-08-22 INFL[facility]ZA VACCINE [facility] 14:41:34 (#1) [code = INFLUENZA VACCINE (#1)] Future Scheduled Test 2023-02-10 65+ PNEUMOCOCCAL [facility] 00:21:17 VACCINE (1 - PCV) [code = 65+ PNEUMOCOCCAL VACCINE (1 - PCV)] Future Scheduled Test 2023-02-10 COVID-19 VACCINE ([address] [place] [address] 00:21:17 Booster for Pfizer series) [code = COVID-19 VACCINE (3 - Booster for Pfizer series)] Future Scheduled Test 2023-02-10 INFLUENZA VACCINE [facility] 00:21:17 [code = INFLUENZA VACCINE] Future Scheduled Test 2022-09-09 HEPATITIS B VACCINES [facility] 00:31:16 (1 of 3 - 3-dose series) [code = HEPATITIS B VACCINES (1 of 3 - 3-dose series)] Future Scheduled Test 2022-09-09 65+ PNEUMOCOCCAL [facility] 00:31:16 VACCINE (1 - PCV) [code = 65+ PNEUMOCOCCAL VACCINE (1 - PCV)] Future Scheduled Test 2022-09-09 COVID-19 VACCINE ([address] [place] [address] 00:31:16 Booster for Pfizer series) [code = COVID-19 VACCINE (3 - Booster for Pfizer series)] Future Scheduled Test 2022-09-09 INFLUENZA VACCINE [facility] 00:31:16 [code = INFLUENZA VACCINE] Future Scheduled Test 2022-07-29 HEPATITIS B VACCINES [facility] 00:00:13 (1 of 3 - 3-dose series) [code = HEPATITIS B VACCINES (1 of 3 - 3-dose series)] Future Scheduled Test 2022-07-29 65+ PNEUMOCOCCAL [facility] 00:00:13 VACCINE (1 - PCV) [code = 65+ PNEUMOCOCCAL VACCINE (1 - PCV)] Future Scheduled Test 2022-07-29 COVID-19 VACCINE ([address] [place] [address] 00:00:13 Booster for Pfizer series) [code = COVID-19 VACCINE (3 - Booster for Pfizer series)] Future Scheduled Test 2022-07-29 INFLUENZA VACCINE [facility] 00:00:13 [code = INFLUENZA VACCINE] Diagnostic Test 2022-06-03 [place] IgE Ab [facility] Pending 00:00:00 [Units/volume] in Serum [code = 6195-2] Future Scheduled Test 65+ PNEUMOCOCCAL [facility] VACCINE (1 of 1 - PPSV23) [code = 65+ PNEUMOCOCCAL VACCINE (1 of 1 - PPSV23)] Future Scheduled Test SHINGLES VACCINES [facility] (#2) [code = SHINGLES VACCINES (#2)] Future Scheduled Test INFLUENZA VACCINE [facility] [code = INFLUENZA VACCINE] Future Appointment 2024-06-03 Maricarmen Hernandez, [address] 00:00:00 [place] [address] Instructions [facility] Encounters Start End Encounter Admission Attending Care Care Encounter Source Date/Time Date/Time Type Type Clinicians Facility Department ID 2023-12-13 2023-12-13 Outpatient MHIE MHIE [id number] Memoria 10:00:00 10:00:00 08 madeleine Roscoe 2023-08-09 2023-08-10 Outpatient MHIE MNA [id number] Memoria 15:15:00 04:59:59 Neurology 07 madeleine Rachel Malhotra 2023-08-09 2023-08-09 Outpatient ONIEL BurgerMISCHER ONIELMISCHER [id number] 10:15:00 23:59:59 Dylan 07 Wiliam 2023-08-09 2023-08-09 Outpatient MHIE MHIE [id number] Memoria 10:15:00 10:15:00 07 madeleine Malhotra 2023-08-09 2023-08-09 Outpatient MHIE MHIE [id number] Memoria 10:15:00 10:15:00 07 madeleine Roscoe 2023-07-18 2023-07-19 Between MHIE MNA [id number] Memoria 18:09:12 18:09:12 Visit Neurology 00 madeleine Rachel Malhotra 2023-07-18 2023-07-19 Outpatient MHMISCHER MHMISCHER [id number] 13:09:12 13:09:12 00 2023-03-03 2023-03-03 Esa Rodriguez AOSM [place] - [place] [id number] Amelie 00:00:00 00:00:00 MD Chintan: Lorraine buttse [address]_Ofc [address] [facility] [place] [address] , Ph. [phone] 2023-03-01 2023-03-01 Outpatient FOG_Stuckey AOSM AOSM [id number] Amelie 00:00:00 00:00:00 _Linda [id number] Ortho pe dic Sports Medicin e 2023-02-25 2023-02-25 Nikita Saha [place] - [place] [id number] Amelie 00:00:00 00:00:00 oLrraine Cevallos MD: [address] Main [facility] Spo rts [facility] [place] [address] , Ph. [phone] 2023-02-18 2023-02-18 Outpatient EL Esa Woodson [facility] [id number] [facility] 07:39:00 07:39:00 11 [facility] 2023-02-18 2023-02-18 Esa Y [place]OSM [place] - [place] [id number] Amelie 00:00:00 00:00:00 MD Chintan: Lorraine Gage rtnichelle [address]_Surgery di c , [facility] e [address] , Ph. [phone] 2023-02-14 2023-02-14 Esa Rodriguez [place] [place] - [place] [id number] Amelie 00:00:00 00:00:00 MD Chintan: Lorraine uqan [address]OG_Ofc [address] [facility] Spor [facility] [place] [address] , Ph. [phone] 2023-02-07 2023-02-08 Outpatient MHIE MNA [id number] Memoria 15:00:00 04:59:59 Neurology 06 l Rachel Malhotra 2023-02-07 2023-02-08 Outpatient MHIE MNA [id number] Memoria 15:00:00 04:59:59 Neurology 06 l Rachel Malhotra 2023-02-08 2023-02-08 Outpatient FOG_Stuckey AOSM AOSM [id number] Amelie 00:00:00 00:00:00 _Linda [id number] Ortho pe dic Sports Medicin e 2023-02-08 2023-02-08 Outpatient FOG_Stuckey AOSM AOSM [id number] Amelie 00:00:00 00:00:00 _Linda [id number] Ortho pe dic Sports Medicin e 2023-02-08 2023-02-08 Outpatient FOG_Stuckey AOSM AOSM [id number] Amelie 00:00:00 00:00:00 _Linda [id number] Ortho pe dic Sports Medicin e 2023-02-08 2023-02-08 Outpatient FOG_Stuckey AOSM AOSM [id number] Amelie 00:00:00 00:00:00 _Linda [id number] Ortho pe dic Sports Medicin e 2023-02-08 2023-02-08 Outpatient FOG_Stuckey AOSM AOSM [id number] Amelie 00:00:00 00:00:00 _Linda [id number] Ortho pe dic Sports Medicin e 2023-02-08 2023-02-08 Outpatient FOG_Stuckey AOSM AOSM [id number] Amelie 00:00:00 00:00:00 _Linda [id number] Ortho pe dic Sports Medicin e 2023-02-08 2023-02-08 Outpatient FOG_Stuckey AOSM AOSM [id number] Amelie 00:00:00 00:00:00 _Linda [id number] Ortho pe dic Sports Medicin e 2023-02-07 2023-02-07 [facility] [id number] 10:00:00 23:59:59 Dylan Swain 2023-02-07 2023-02-07 Outpatient MHIE MHIE [id number] Memoria 10:00:00 10:00:00 06 madeleine Roscoe 2023-02-04 2023-02-04 Outpatient FOG_Stuckey AOSM AOSM [id number] Amelie 00:00:00 00:00:00 _Linda [id number] Ortho pe dic Sports Medicin e 2023-02-04 2023-02-04 Outpatient FOG_Stuckey AOSM AOSM 555 [id number] Amelie 00:00:00 00:00:00 _Linda [id number] Ortho pe dic Sports Medicin e 2022-12-15 2022-12-15 Outpatient FOG_Stuckey AOSM AOSM [id number] Amelie 00:00:00 00:00:00 _Linda [id number] Ortho pe dic Sports Medicin e 2022-12-10 2022-12-10 Joby N [place]M [place] - [place] [id number] Amelie 00:00:00 00:00:00 Lorraine Ulrich MD: [address] FOG_Ofc [address] [facility], [place] [address] , Ph. [phone] 2022-11-09 2022-11-10 Outpatient MHIE MNA [id number] Memoria 17:15:00 05:59:59 Neurology 05 l Rachel Roscoe 2022-11-09 2022-11-10 Outpatient MHIE MNA [id number] Memoria 17:15:00 05:59:59 Neurology 05 l Rachel Malhotra 2022-11-09 2022-11-09 [facility] [id number] 11:15:00 23:59:59 Dylan Michelle Swain 2022-11-09 2022-11-09 Outpatient MHIE IE [id number] Memoria 11:15:00 11:15:00 05 l Roscoe 2022-10-15 2022-10-15 Outpatient FOG_Stuckey AOSM AOSM [id number] Amelie 00:00:00 00:00:00 _Linda [id number] Ortho pe dic Sports Medicin e 2022-10-15 2022-10-15 Outpatient FOG_Stuckey AOSM AOSM [id number] Amelie 00:00:00 00:00:00 _Linda [id number] Ortho pe dic Sports Medicin e 2022-10-15 2022-10-15 Outpatient FOG_Stuckey AOSM AOSM [id number] Amelie 00:00:00 00:00:00 _Linda [id number] Ortho pe dic Sports Medicin e 2022-10-15 2022-10-15 Outpatient FOG_Stuckey AOSM AOSM [id number] Amelie 00:00:00 00:00:00 _Linda [id number] Ortho pe dic Sports Medicin e 2022-10-15 2022-10-15 Joby Braxton [place]M [place] - [place] [id number] Amelie 00:00:00 00:00:00 Lorraine Ulrich MD: [address] FOG_Ofc dic [facility] [place] [address] , Ph. [phone] 2022-10-06 2022-10-06 Outpatient FOG_Stuckey AOSM AOSM [id number] Amelie 00:00:00 00:00:00 _Linda [id number] Ortho pe dic Sports Medicin e 2022-10-06 2022-10-06 Outpatient FOG_Stuckey AOSM AOSM 555 [id number] Amelie 00:00:00 00:00:00 _Linda [id number] Ortho pe dic Sports Medicin e 2022-09-29 2022-09-29 Outpatient FOG_Stuckey AOSM AOSM 555 [id number] Amelie 00:00:00 00:00:00 _Linda [id number] Ortho pe dic Sports Medicin e 2022-09-03 2022-09-03 Outpatient FOG_Stuckey AOSM AOSM 555 [id number] Amelie 00:00:00 00:00:00 _Linda [id number] Ortho pe dic Sports Medicin e 2022-09-03 2022-09-03 Joby N [place] [id number] Amelie 00:00:00 00:00:00 Lorraine Ulrich MD: [address] FOG_Ofc dic [facility] [place] [address] , Ph. [phone] 2022-08-18 2022-08-19 Outpatient EL Serg HCATO OBSE [id number] [facility] 05:10:00 11:46:00 Joby 30 [facility] 2022-08-19 2022-08-19 Outpatient FOG_Stuckey AOSM AOSM [id number] Amelie 00:00:00 00:00:00 _Linda [id number] Ortho pe dic Sports Medicin e 2022-08-18 2022-08-18 Joby N [place]M [place] - [place] [id number] Amelie 00:00:00 00:00:00 Lorraine Ulrich MD: [address] FOG_Surgery dic [facility] [place] [address] , Ph. [phone] 2022-08-06 2022-08-07 Outpatient nullFlavo MNA [id number] Memoria 16:45:00 04:59:59 r Neurology 04 l Rachel Malhotra 2022-08-06 2022-08-07 Outpatient nullFlavo MNA [id number] Memoria 16:45:00 04:59:59 r Neurology 04 l Rachel Roscoe 2022-08-06 2022-08-06 Outpatient GEORGE Burger [facility] [id number] 11:45:00 23:59:59 Dylan Terrance Swain 2022-08-06 2022-08-06 Outpatient MHIE ONIELIE [id number] Memoria 11:45:00 11:45:00 04 l Roscoe 2022-07-30 2022-07-30 Outpatient Serg, HCACL LABO [id number] [facility] 16:09:00 16:09:00 Joby Oliva [facility] 2022-07-22 2022-07-22 Outpatient FOG_Stuckey AOSM AOSM [id number] Amelie 00:00:00 00:00:00 _Linda [id number] Ortho pe dic Sports Medicin e 2022-07-07 2022-07-07 Outpatient FOG_Stuckey AOSM AOSM 555 [id number] Amelie 00:00:00 00:00:00 _Linda [id number] Ortho pe dic Sports Medicin e 2022-06-25 2022-06-25 Outpatient FOG_Stuckey AOSM AOSM 555 [id number] Amelie 00:00:00 00:00:00 _Linda [id number] Ortho pe dic Sports Medicin e 2022-06-25 2022-06-25 Outpatient Serg, AOSM AOSM [id number] 00:00:00 00:00:00 Joby Braxton [id number] 2022-06-25 2022-06-25 Joby Braxton [place] [place] - [place] [id number] Amelie 00:00:00 00:00:00 Lorraine Ulrich MD: [address] FOG_Ofc dic [facility] [place] [address] , Ph. [phone] 2022-06-09 2022-06-09 Outpatient FOG_Stuckey AOSM AOSM 555 [id number] Amelie 00:00:00 00:00:00 _Linda [id number] Ortho pe dic Sports Medicin e 2022-06-09 2022-06-09 Nikita S[place] [id number] Amelie 00:00:00 00:00:00 Lorraine Cevallos MD: [address] FOG_Ofc dic [facility], [place] [address] , Ph. [phone] 2022-06-09 2022-06-09 Outpatient VENITA CevallosSM [id number] 00:00:00 00:00:00 Nikita Saha [id number] 2022-06-05 2022-06-05 [id number] [facility] 10:00:00 14:16:00 Nikita Bloom [facility] 2022-06-03 2022-06-03 Outpatient GC_SWHAOMC_ PRIV PRIV [id number] [facility] 00:00:00 00:00:00 Riley [id number] Medica l 2022-06-03 2022-06-03 Outpatient FOG_Stuckey AOSM AOSM [id number] Amelie 00:00:00 00:00:00 _Linda [id number] Ortho pe dic Sports Medicin e 2022-06-03 2022-06-03 Maricarmen [facility] 28 [facility] 00:00:00 00:00:00 Carlos [facility] - Medic nathaniel Hernandez MD: GC_SWHAOMC_ [address] [facility] [place] [address] , Ph. 2022-06-03 2022-06-03 Outpatient Maricarmen Hernandez PRIV PRIV [id number] 00:00:00 00:00:00 Carlos [id number] 2022-06-02 2022-06-02 Outpatient FOG_Stuckey AOSM AOSM [id number] Amelie 00:00:00 00:00:00 _Linda [id number] Ortho pe dic Sports Medicin e 2022-06-02 2022-06-02 Outpatient VENITA Cevallos AOSM [id number] 00:00:00 00:00:00 Nikita Saha [id number] 2022-06-02 2022-06-02 Nikita Saha [place]OSM [place] - [place] [id number] Amelie 00:00:00 00:00:00 Lorraine Cevallos MD: [address] FOG_Ofc dic [facility] Spo [facility] [place], [place] [address] , Ph. [phone] 2022-05-27 2022-05-28 Outpatient nullFlavo MNA [id number] Memoria 15:15:00 04:59:59 r Neurology 03 l Rachel Malhotra 2022-05-27 2022-05-28 Outpatient nullFlavo MNA [id number] Memoria 15:15:00 04:59:59 r Neurology 03 l Rachel Malhotra 2022-05-27 2022-05-27 Outpatient [facility] [id number] 10:15:00 23:59:59 Dylan 03 Wiliam 2022-05-27 2022-05-27 Outpatient MHIE MHIE [id number] Memoria 10:15:00 10:15:00 03 madeleine Malhotra 2022-05-13 2022-05-13 Outpatient GC_SWHAOMC_ PRIV PRIV [id number] [facility] 12:04:00 12:04:00 Black_D [id number] Medica l 2022-05-12 2022-05-12 Outpatient GC_SWHAOMC_ PRIV PRIV [id number] [facility] 02:16:00 02:16:00 Black_D [id number] Medica l 2022-04-21 2022-04-21 Outpatient FOG_Stuckey AOSM AOSM [id number] Amelie 00:00:00 00:00:00 _Linda [id number] Ortho pe dic Sports Medicin e 2022-02-25 2022-02-26 Outpatient nullFlavo MNA [id number] Memoria 18:45:00 04:59:59 r Neurology 02 l [place] Roscoe 2022-02-25 2022-02-26 Outpatient nullFlavo MNA [id number] Memoria 18:45:00 04:59:59 r Neurology 02 l [place] Roscoe 2022-02-25 2022-02-25 Outpatient ONIEL BurgerMISCHER [facility] [id number] 13:45:00 23:59:59 Dylan Melodie Wiliam 2022-02-25 2022-02-25 Outpatient MHIE MHIE [id number] Memoria 13:45:00 13:45:00 02 madeleine Roscoe 2021-11-07 2021-11-07 Telephone Mandeep HERNESTO [id number] [facility] 00:00:00 00:00:00 Lydia ORO 350.1.13.10 ity of [facility] 4.2.7.2.686 Branden as [phone] [address] 2021-11-06 2021-11-06 Laboratory Only, Ang Db Test [facility] 1.2.8 40.114 [id number] Univers 11:30:00 11:45:00 Only EldaNordic Neurostim [facility] 350.1.13.10 ity [facility] 4.2.7.2.686 Branden as TOSHIA?BLEA [id number] [address] MEDICAL OFFICE [facility] 2021-11-06 2021-11-06 Outpatient R ELDA [facility] [id number] [facility] 11:30:00 11:30:00 RANMS ity [facility] 2021-10-23 2021-10-23 Outpatient RADHA Carmen HCATO PAIN [id number] [facility] 08:49:00 08:49:00 Nikita Mack [facility] 2021-09-04 2021-09-05 Outpatient nullFlavo MNA [id number] Memoria 16:15:00 04:59:59 r Neurology 01 l Rachel Malhotra 2021-09-04 2021-09-05 Outpatient nullFlavo MNA [id number] Memoria 16:15:00 04:59:59 r Neurology 01 l Rachel Malhotra 2021-09-04 2021-09-04 Outpatient GEORGE BurgerSCHER [id number] 11:15:00 23:59:59 Dylan 01 Wiliam 2021-09-04 2021-09-04 Outpatient MHIE MHIE [id number] Memoria 11:15:00 11:15:00 01 l Roscoe 2021-08-14 2021-08-14 Inpatient JASPAL Cota RADI [id number] [facility] 09:15:00 08:16:00 Rolando 94 [facility] 2021-08-11 2021-08-12 Outpatient nullFlavo MNA [id number] Memoria 13:30:00 04:59:59 r Neurology 00 l [place] Roscoe 2021-08-11 2021-08-12 Outpatient nullFlavo MNA [id number] [facility] 13:30:00 04:59:59 r Neurology 00 l [place] Roscoe 2021-08-11 2021-08-11 Outpatient GEORGE Burger MISCHER [id number] 08:30:00 23:59:59 Dylan 00 [place]ili[place] 2021-08-11 2021-08-11 Outpatient MHMEAGAN STEIN [id number] Memoria 08:30:00 08:30:00 00 madeleien Roscoe 2021-07-10 2021-07-10 Outpatient JASPAL Dsouza PAIN [id number] [facility] 09:12:00 09:12:00 Nikita 32 [facility] 2020-12-24 2020-12-24 Clinical 1.2.840.1 [id number] Methodi 10:23:04 12:01:[address] 3.430.2.7 Hospit a .3.811961 l .8 2020-12-24 2020-12-24 Travel 1.2.840.1 1.2.445.568 [id number] Methodi 00:00:00 00:00:[address] 3.430.2.7 0.2.7.3.698 Ho spita .3.551549 084.8 l .8 2020-12-032020-12-03 Clinical 1.2.840.1 [id number] Methodi 09:44:59 09:55:[address] 3.430.2.7 Hospit a .3.817073 l .8 2020-12-03 2020-12-03 Travel 1.2.840.1 1.2.719.456 [id number] Methodi 00:00:00 00:00:[address] 3.430.2.7 0.2.7.3.698 Ho spita .3.318422 084.8 l .8 2020-11-25 2020-11-25 Travel 1.2.840.1 1.2.376.739 1910 [id number] Methodi 00:00:00 00:00:[address] 3.430.2.7 0.2.7.3.698 Ho spita .3.723478 084.8 l .8 2020-07-08 2020-07-08 Outpatient Doctor, HCATO PAIN [id number] [facility] 12:00:00 12:00:00 Jose 00 [facility] Results Test Description Test Time Test Comments [...] of measure: mL/min/1.73 (test code = GFR) [id number] e Range:Healthy Adults >90 mL/m in/1.73 m2 For Chronic Kidney Disease: Stage II Mild Decreas e in GFR 60-90 Stage III Moderate Decrease in GFR 30-59 Stage IV Severe Decre ase in GFR 15-29 Stage V K idney Failure <15 CREATININE (test code = CREAT) 1.17 mg/dL 0.55-1.30 N CALCIUM (test code = CA) 8.6 mg/dL 8.2-10.1 N HGB [id number] 06:33:00 Test Item Value Reference Range Interpretation Comments HEMOGLOBIN (test code = HGB) 11.7 g/dL 12-16 L HEMATOCRIT (test code = HCT) 35.2 % 37-47 L SPECIMEN COMMENT: POD #1Hemoglobin and Hematocrit panel - [id number] 04:56:00 Test Item Value Reference Range Interpretation Comments hemoglobin (test code = hemoglobin) 11.7 g/dL 12-16 L hematocrit (test code = hematocrit) 35.2 % 37-47 L performing lab: (test code = performing lab:) [facility] W/MANUAL [id number] 19:36:00 Test Item Value Reference Range Interpretation [...] % 2-9 HH = MON) PATHOLOGIST REVIEW [id number] 19:36:00 Test Item Value Reference Range Interpretation Comments PATHOLOGIST REVIEW CBC REVIE W-NORMOCYTIC REQUIRED (test code = NORMOC HROMIC RED BLOOD PATHH) CELLS (Hgb: 12. 1 g/dL, MCV: 91)-WHITE BLOOD CELLS (WBC: 590 0) WITH MONOCYTOSIS (19 %), NO ATYPICAL MONOCY RE OR BLASTS SEEN.-AD EQUATE PLATELETS (PLAT ELET: 172K) COMMENT: RECOMMEND CLINICAL CORREL ISABEL BELTRÁN M.D. 07/30/2022 COMPREHENSIVE METABOLIC [id number] 10:18:00 Test Item Value Reference Range Interpretation [...] RATE (test code = GFR) mL/mi n/1.73 [id number] Range:Healthy Adults >90 mL/min/1.73 m2 For Chronic Kidney Disease: Stage II Mild Decrease i n GFR 60-90 Stage III Moderate Decrea se in GFR 30-59 S tage IV Severe Decre ase in GFR 15-29 [...] H TOTAL (test code = ALKP) PROTHROMBIN [id number] 10:16:00 Test Item Value Reference Range Interpretation [...] BLOOD, PT every other day NTHROMBOPLASTIN TIME [id number] 10:16:00 Test Item Value Reference Range Interpretation Comments PTT ACTIVATED (test 34.7 secs 26.6-34.6 H Please n ote new code = APTT) normal range. IS PATIENT ON ANTICOAGULANTS ? NHas Lab [...] performing lab: (test code = performing lab:) [facility] [id number] 09:40:00 Test Item Value Reference Range Interpretation Comments PTT activated (test code = PTT 34.7 secs 26.6-34.6 H activated) performing lab: (test code = performing lab:) [facility] 2000 [facility] - Serum or [id number] 09:40:00 Test Item Value Reference Range Interpretation [...] performing lab: (test code = performing lab:) [facility] Ordered Manual Differential panel - Blood [...] (test code = performing lab:) [facility] Medicinepathologist review [id number] 09:40:00 Pathologist Review RequiredPerforming Lab:[facility] Methicillin resistant Staphylococcus aureus [Presence] in Specimen by Organism specific [id number] 09:40:00 Test Item Value Reference Range Interpretation Comments MRSA surveillance screen (test code see below = MRSA surveillance screen) performing lab: (test code = performing lab:) [facility] surveillance [id number] 09:40:00 Test Item Value Reference Range Interpretation Comments mssa PCR surveillance screen (test see below code = mssa PCR surveillance screen) performing lab: (test code = performing lab:) [facility]- MRI UP JNT W/O CONT [id number] 07:49:00 [facility] JOSE : 1945 Sex: F Patient Name: JARRETT PATRICIO Unit No: [id number] EXAMS: CPT CODE: [id number] MRI UP JNT W/[place] [address] MRI OF THE LEFT SHOULDER DIAGNOSIS: 1. Near full-thickness tear of the leading edge of the supraspinatus tendon with tendinosis. There is no evidence for tendon retraction or muscular atrophy. 2. Partial-thickness longitudinal split tear of the superior subscapularis tendon with biceps tend inosis and medial subluxation. There is no evidence for subscapularis tendon retraction or muscularatrophy. An associated SLAP tear of the labrum is present. 3. Partial-thickness insertional tearing of the infraspinatus tendon with tendinosis. There is no evidence for tendon retraction or muscular atrophy. 4. Severe glenohumeral joint degenerative change with bone marrow edema, subchondral cyst andfull-thickness cartilage loss. Degenerative tears of the anterior, posterior and inferior labrum arenoted. A large joint effusion is present with [...] MD Technologist: Denis Cameron Transcribed D/ (0749) t.SDR.L [facility] NAME: JARRETT PATRICIO [address] [facility] PHYS: Nikita Shah MD : 1945 AGE: 77 SEX: F [place], [place] [address] LOC: Y.MRI PHONE #: [phone] EXAM DATE: 06/05/2022 STATUS: REG CLI FAX #: [phone] RAD #: D/C DT PAGE 1 Signed Report Patient Name: JARRETT PATRICIO Unit No: [id number] EXAMS: CPT CODE: [id number] [place] JNT W/[place] [address] (Continued) Orig Print D/T: S: 06/07/2022 (0753) [facility] NAME: JARRETT PATRICIO [address] [facility] PHYS: iNkita Shah MD : 1945 AGE: 77 SEX: F [place], [place] [address] LOC: Y.MRI PHONE #: [phone] EXAM DATE: 06/05/2022 STATUS: REG CLI FAX #: [phone] RAD #: D/C DT PAGE 2 Signed Report- XR FLUORO FOR SPINE [id number] 19:18:00 [facility] : 1945 Sex: F Patient Name: JARRETT PATRICIO Unit No: [id number] EXAMS: CPT CODE: [id number] XR FLUORO FOR SPINE INJ 32972 LUMBAR EPIRADICULAR INJECTION REFERRAL PHYSICIAN: Rolando Beckman [...] the insertion sites were marked for paravertebral a pproaches and using standard technique, a 25 gauge [...] condition. Image: Image 1 Image: Image 2 Electronically Signed by Katelyn Morales on10/23/2021 at 1917 Reported and signed by: Nikita Morales M.D. [facility] NAME: JARRETT PATRICIO [address] [facility] PHYS: Nikita Wolff MD : 1945 AGE: 76 SEX: F [place], [place] [address] LOC: BrandoKY PHONE #: [phone] EXAM DATE: 10/23/2021 STATUS: REG [facility] [facility] FAX #: [phone] RAD #: D/C DT PAGE 1 Signed Report (CONTINUED) Patient Name: JARRETT PATRICIO Unit No: [id number] EXAMS: CPT CODE: [id number] XR FLUORO FOR SPINE INJ 89981 (Continued) CC: Nikita Morales MD Technologist: Carl Gage,RT(R) Transcribed D/ (1917)[facility]: [facility]ICIO [address] [facility] PHYS: Nikita Wolff MD : 1945 AGE: 76 SEX: F [place], [place] [address] LOC: JAMES PHONE #: [phone] EXAM DATE: 10/23/2021 STATUS: REG [facility] [place] FAX #: [phone] RAD #: D/C DT PAGE 2 Signed Report Patient Name: JARRETT PATRICIO JOSE Unit No: [id number] EXAMS: CPT CODE: [id number] XR FL UORO FOR SPINE INJ 98485 () Orig Print D/T: S: 10/23/2021 (1920) [facility] NAME: JARRETT PATRICIO [address] [facility] PHYS: Nikita Wolff MD : 1945 AGE: 76SEX: F [place], [place] [address] LOC: JAMES PHONE #: [phone] EXAM DATE: 10/23/2021 STATUS: REG [facility] [place] FAX #: [phone] RAD #: D/C DT PAGE 3 Signed Report- MRI L-SPINE W/O [id number] 10:32:00 [facility]SE : 1945 Sex: F Patient Name: JARRETT PATRICIO JOSE Unit No: [id number] EXAMS: CPT CODE: [id number] MRI L- SPINE W/O CONT 95615 DIAGNOSIS: 1. At L1-2 there is endplate [...] described. Spondylitic changes are as noted. The conusis in the expected location. The description of the levels of these findings is consistent with the prior exam. at 1032 Reported and signed by: David Zavala MD CC: Nikita Morales MD; Rolando Beckman MD Technologist: LESTER MIRANDA MRI Transcribed D/ (1032) t.SDR.L [facility] NAME: JARRETT PATRICIO [address] [facility] PHYS: Rolando Swanson : 1945 AGE: 76 SEX: F [place], [place] [address] LOC: Y.MRI PHONE #: [phone] EXAM DATE: 08/14/2021 STATUS: REG CLI FAX #: [phone] RAD #: D/C DT PAGE 1 Signed Report Patient Name: JARERTT PATRICIO No: [id number] EXAMS: CPT CODE: [id number] MRI L-SPINE W/O CONT 24317 (Continued) Orig Print D/T: S: 08/14/2021 (1035) [facility] NAME: JARRETT PATRICIO [address] [facility] PHYS:Rolando Swanson : 1945 AGE: 76 SEX: F [place], [place] [address] LOC: Y.MRI PHONE #: [phone] EXAM DATE: 08/14/2021 STATUS: REG CLI FAX #: [phone] RAD #:D/C DT PAGE 2 Signed Report - XR FLUORO FOR SPINE [id number] 18:59:00 [facility] : 1945 Sex: F Patient Name: JARRETT PATRICIO Unit No: [id number] EXAMS: CPT CODE: [id number] XR FLUORO FOR SPINE INJ 73426 LUMBAR EPIRADICULAR INJECTION REFERRAL PHYSICIAN: Rolando Beckman M.D. PREOPERATIVE DIAGNOSIS: Lumbar Radiculitis POSTOPERATIVE DIAGNOSIS: Status post L3-S1 fusion with right lumbar radiculitisPROCEDURES PERFORMED: Fluoroscopically guided needle localization of the right L5 and right S1 spinal nerves with transforaminal epidurograms and epidural injection of local anesthetic and steroid. FINDINGS: Good flow seen along the L5 and S1 nerve root sleeves with good flow through the foramen and across the L5-S1 disc. Provocation with injection was negative. Anesthetic response was positive with t he patient noting complete relief of her right low back and lower extremity pain. Preinjection VAS 1/10. Postinjection VAS 0/10. Steroid response pending follow-up. ESTIMATED BLOOD LOSS: Minimal ANESTHESIA: TIVA COMPLICATIONS: None DETAILS OF PROCEDURE: After obtaining stable vital signs, informed consent and IV access, with no contraindications, the patient was taken to the operating room and placedin a prone position with all extremities padded [...] with lidocaine 4% 0.5 mL and Decadron 1mg was then incrementally injected with frequent negative aspirations and again there were no signs of intravascular or intrathecal uptake. The needles were removed and the patient was taken to the PACU in good condition. Image: Image 1 Image: Image 2 at 1859 Reported and signed by: Nikita Morales M.D. [facility] NAME: JARRETT PATRICIO [address] [place] [address] PHYS: Nikita Wolff MD [place], [place] [address] : 1945 AGE: 76 SEX: F LOC: [place] PHONE #: [phone] EXAM DATE: 07/10/2021 STATUS: REG [facility] [place] FAX #: [phone] RAD #: D/C DT PAGE 1 Signed Report (CONTINUED) Patient Name: MARY,JARRETT GARCIA Unit No: [id number] EXAMS: CPT CODE: [id number] XR FLUORO FOR SPINE INJ 40426 (Continued) CC: Technologist: Arelis Mcmillan(R) Transcribed D/ (1858) [facility]: [facility]TT PATRICIO [address] [place] [address] PHYS: Nikita Wolff MD [place] [id number] : 1945 AGE: 76 SEX: F LOC: BrandoPAIPHONE #: [phone] EXAM DATE: 07/10/2021 STATUS: REG [facility] [place] FAX #: [phone] RAD #: D/C DT PAGE 2Signed Report Patient Name: JARRETT PATRICIO Unit No: [id number] EXAMS: CPT CODE: [id number] XR F LUORO FOR SPINE INJ 31492 (Continued) Orig Print D/T: S: 07/10/2021 (1903) [facility] [place] NAME: JARRETT PATRICIO [address] [facility] PHYS: Nikita Wolff MD [place], [place] [address] : 1945 AGE: 76 SEX: F LOC: [place]ando[place] PHONE #: [phone] EXAM DATE: 07/10/2021 STATUS: REG [facility] [place] FAX #: [phone] RAD #: D/C DT PAGE 3 Signed Report- XR FLUORO FOR SPINE [id number] 11:04:00 Patient Name: JARRETT PATRICIO Unit No: [id number] EXAMS: CPT CODE: [id number] XR FLUORO FOR SPINE INJ 32818 LUMBAR TRANSFORAMINAL INJECTION REFERRING PHYSICIAN:Rolando Beckman M.D. PREOPERATIVE DIAGNOSIS: Degenerative Lumbar Disc Disease. POSTOPERATIVE DIAGNOSIS: Lumbar radiculopathy PROCEDURES PERFORMED 1. Fluoroscopically guided needle localization of the right L5, right S1 spinal nerve/nerves with transforaminal epidural steroid injection/injections. 2. Transforaminal epidurogram/epidurograms [...] There were no signs of intravascular or intrathecaluptake. Each subsequent level was done using the same technique and medications. The patient's vitalsigns remained stable. The patient was taken to the PACU in good condition. Electronically Signedby Katelyn Woods on 07/08/2020 at 1104 Reported and signed by: Jose Woods M.D. CC: Technologi st: Arelis Mcmillan(R) Transcribed D/ (1103) [facility] [place] NAME: MARY,JARRETT ANN [address] [facility] PHYS: Jose Sloan MD [place], [place] [address] : 1945 AGE: 75 SEX: F LOC: JAMES PHONE #: [phone] EXAM DATE: 07/08/2020 STATUS: REG [facility] [place] FAX #: [phone] RAD #: D/C DT PAGE 1 Signed Report Patient Name:JARRETT PATRICIO Unit No: [id number] EXAMS: CPT CODE: [id number] XR FLUORO FOR SPINE INJ 56694 (Continued) Orig Print D/T: S: 07/08/2020 (1107) [facility] [place] NAME: JARRETT PATRICIO JOSE [address] [facility] PHYS: Jose Sloan MD [place], [place] [address] : 1945 AGE: 75 SEX: F LOC: JAMES PHONE #: [phone] EXAM DATE: 07/08/2020 STATUS: REG SDC FAX #: [phone] RAD #: D/C DT PAGE 2 Signed Report- MRI L- SPINE W/O [id number] 13:41:00 Patient Name: JARRETT PATRICIO Unit No: [id number] EXAMS: CPT CODE: [id number] MRI L-SPINE W/O CONT 28068 MRI OF THE LUMBAR SPINE: DIAGNOSIS: 1. At L1-2, a moderate to marked degeneration. There i s 2 mm retrolisthesis of L5 on L2. [...] Alexander MD CC: Rolando Beckman MD Technologist: Sintia PondTMejia(R) Transcribed D/ (3021) tAUDRAR.GVG [facility] NAME: JARRETT PATRICIO [address] [facility] PHYS: Rolando Swanson : 1945 AGE: 74 SEX: [place], [place] [address] LOC: Y.MRI PHONE #: [phone] EXAM DATE: 09/28/2019 STATUS: REG CLI FAX #: [phone] RAD #: D/C DT PAGE 1 Signed Report Patient Name: VIRIDIANA PATRICIO Unit No: [id number] EXAMS: CPT CODE: [id number] MRI L-SPINE W/O CONT 85634 (Continued) Orig Print D/T: S: 09/28/2019 (1345) [facility] NAME: JARRETT PATRICIO [facility] [address] [facility] PHYS: Rolando Swanson : 1945 AGE: 74 SEX: F [place], [place] [address] LOC: Y.MRI PHONE #: [phone] EXAM DATE: 09/28/2019 STATUS: REG CLI FAX #: [phone] RAD#: D/C DT PAGE 2 Signed Report
[2023-08-22 15:46] VITALS: BMI 30.2
--- NOTE | 2023-08-22 16:56 | RAD REPORT ---
EXAM DESCRIPTION: RAD - Chest Pa And Lat (2 Views) - 08/22/2023 4:49 pm CLINICAL HISTORY: asthma, rule out pneumonia Chest pain. COMPARISON: Chest Single View dated 09/27/2022; Chest Pa And Lat (2 Views) dated 04/26/2022; Chest Si ngle View dated 03/28/2022; Chest Pa And Lat (2 Views) dated 06/29/2019 FINDINGS: The lungs are hyperexpanded compatible with COPD. No focal infiltrate to suggest pneumonia seen. Moderate hiatal hernia suspected. The heart is upper limit normal in size. No displaced fractu res. IMPRESSION: COPD is noted. No acute infiltrate seen. Moderate hiatal hernia. The USPSTF recommends annual screening for lung cancer with low-dose CT (LDCT) in adults aged 50 to 80 years who have a 20 pack-year smoking history and currently smoke or have quit within the past 15 years.
[2023-08-22] MEDS: ENOXAPARIN 40 MG/0.4 ML SQ SCH (17:01)
[2023-08-22] MEDS: METHYLPREDNISOLONE 40 MG INJ IV SCH (17:01)
[2023-08-22] MEDS: Levofloxacin500mg IV 500 MG/100 ML BAG IV SCH (17:01)
[2023-08-22] MEDS: ALBUTEROL 2.5 MG/3 ML NEB SOL NEB SCH ×2 (17:04→20:00)
[2023-08-22] MEDS ORDERED: NA CHLORIDE 0.9% 250 ML ONE (17:12)
[2023-08-22 17:30] LABS: Absolute Lymphocytes (CBC) 3.3 K/uL (0.7-4.9); Hematocrit 40.6 % (36.0-45.0); Lymphocytes % 32.4 % (15.3-44.8); MCV 88.4 fL (80-100); MPV 9.5 fL (7.6-11.3); Platelets 110 thou/uL (152-406)
[2023-08-22 17:34] LABS: Albumin 3.3 g/dL (3.4-5.0); Bilirubin Total 0.3 mg/dL (0.2-1.0); Magnesium 2.3 mg/dL (1.6-2.4); Potassium 3.1 mEq/L (3.5-5.1); Protein, Total 6.7 g/dL (6.4-8.2)
[2023-08-22 20:41] LABS: Blood Morphology Comment NOT SEEN (NOT SEEN); Platelet Estimate DECR
[2023-08-22] MEDS ORDERED: TRAMADOL HCL 50 MG TAB PO PRN (21:05)
[2023-08-22] MEDS: GABAPENTIN 300 MG CAP PO SCH (21:24)
[2023-08-22] MEDS: ATORVASTATIN 40 MG TAB PO SCH (21:24)
[2023-08-22] MEDS: METOPROLOL TAR 50 MG TAB PO SCH (21:25)
[2023-08-22] MEDS: MELATONIN 5 MG TABLET PO PRN (22:20)
[2023-08-23] MEDS: METHYLPREDNISOLONE 40 MG INJ IV SCH ×3 (00:46→16:53)
[2023-08-23] MEDS: ALBUTEROL 2.5 MG/3 ML NEB SOL NEB SCH ×4 (01:00→20:25)
[2023-08-23] MEDS: PANTOPRAZOLE 40MG TABLET PO SCH (05:59)
[2023-08-23] MEDS ORDERED: POTASSIUM 25 MEQ EFFERV TAB PO ONE (08:00)
--- NOTE | 2023-08-23 08:15 | RAD REPORT ---
EXAM DESCRIPTION: CT - Thorax Wo Con CLINICAL HISTORY: Chest pain asthma, rule out pneumonia COMPARISON: Chest For Pe Angio dated 09/28/2022; Chest Pa And Lat (2 Views) dated 08/22/2023 FINDINGS: Mild diffuse COPD is present. No focal infiltrate to indicate pneumonia seen. No pleural t hickening or pleural effusion. No pneumothorax. Moderate axial hiatal hernia. Few mildly prominent lymph nodes in the mediastinum. Thoracic lumbar degenerative changes. No gross upper abdominal finding. All CT scans are performed using dose optimization technique as appropriate and may include automated exposure control or mA/KV adjustment according to patient size. IMPRESSION: Mild diffuse COPD without acute infiltrate seen. Moderate hiatal hernia.
[2023-08-23] MEDS: DULERA 200/5 (MOMETASONE/FORMOTEROL) INHALER IH SCH ×2 (08:43→21:00)
[2023-08-23] MEDS ORDERED: AMLODIPINE 5 MG TAB PO SCH (09:00)
[2023-08-23] MEDS: METOPROLOL TAR 50 MG TAB PO SCH ×2 (09:47→21:47)
[2023-08-23] MEDS: LOSARTAN POTASSIUM 50 MG TABLET PO SCH (09:47)
[2023-08-23] MEDS: ENOXAPARIN 40 MG/0.4 ML SQ SCH (16:53)
[2023-08-23] MEDS: Levofloxacin500mg IV 500 MG/100 ML BAG IV SCH (16:53)
[2023-08-23] MEDS: ATORVASTATIN 40 MG TAB PO SCH (21:47)
[2023-08-23] MEDS: GABAPENTIN 300 MG CAP PO SCH (21:47)
[2023-08-23] MEDS: AMLODIPINE 5 MG TAB PO SCH (21:48)
[2023-08-23] MEDS: MELATONIN 5 MG TABLET PO PRN (21:49)
--- NOTE | 2023-08-23 23:59 | HP ---
Date of Admission: 08/22/2023 Chief Complaint: Cough, congestion, shortness Of Breath. History Of Present Illness: This is a 78-year-old very pleasant female patient who came into office with her and about 10 days ago, she started to have fever, chills, sore throat, cough, chest congestion, wheezing, and shortness of breath. She saw me a week ago and she was prescribed azithrom ycin, benzonatate, and prednisone for 5 days. She took all these medications and she came back today to office as she continues to have cough, chest congestion, wheezing, and shortness of breath feelin g weak, tired, very poor appetite. Denies any more fever or chills. No more sore throat. After she was evaluated at office, she was admitted to the hospital. She gives history of cough, congestion, wheezing every spring and fall with some allergy symptoms, so what I am concerned about that she prob ably has allergy induced adult onset of asthma and because of persistent symptoms and lack of improve ment with outpatient therapy, she was admitted to the hospital. Allergies: JOSE DANIEL INHIBITOR CAUSING COUGH AND NONSTEROIDAL ANTI-INFLAMMATORY MEDICATION CAUSES NAUSEA A ND VOMITING. Medications: List reviewed. Review of Systems: Respiratory: As mentioned above. All other systems reviewed and negative. Past Medical History: Significant for COVID-19 infection in November of 2021, migraine, hypertension, type 2 diabetes mellitus, mixed hyperlipidemia, gastroesophageal reflux disease, diverticulosis, chr onic back pain, thrombocytopenia, and osteoporosis. Past Surgical History: Hysterectomy, bladder suspension, back surgery, left knee arthroplasty surger y, August 18, 2022 and bilateral foot surgery. Family History: Father , had myocardial infarction, diabetes and hypertension. Mother had hyper tension. Sister with hypertension. Social History: Negative for smoking and alcohol use. Physical Examination: Vital Signs: Temperature 97.2, pulse 70, respiratory rate 18, blood pressure 152/57, oxygen saturati on 93%, height 5 feet 5 inches, weight 182 pounds. General: Awake, alert, oriented, not in distress. HEENT: Head atraumatic, normocephalic. Conjunctivae nonerythematous. Sclerae white. Mouth, no thr ush or edema noted. Ears/Nose, no mass, lesion, discharge noted. Neck: Supple. No JVD, lymph nodes, bruit, thyromegaly noted. Lungs: Bilateral good equal air entry. Not using accessory muscles of respiration, but presence of scattered wheezing all over both lung galeas and some rales in left lower lung galeas. Heart: Normal heart sounds, no murmur or gallop. Abdomen: Soft, bowel sounds normal. No guarding, rigidity, tenderness, mass, hepatosplenomegaly, dis tention, or bruit noted. Extremities: No leg edema. No calf tenderness. Skin: No rash, ulcer, cellulitis. Lymphatics: No lymph node enlargement in neck, supraclavicular, infraclavicular region. Neuro: No focal neurological deficit. Chest: Unremarkable. External Genitalia: Deferred. Rectal: Deferred. Laboratory Data: Chest x-ray no evidence of any infiltrate, changes of COPD on chest x-ray. Blood w ork shows WBC count 10.3, hemoglobin 14.1, platelets 110. Sodium 141, potassium 3.1, chloride 107, b icarb 30, BUN 17, creatinine 0.88, glucose 110. Liver function tests unremarkable. Impression: 1.Acute exacerbation of mild intermittent asthma. 2.Rule out pneumonia. 3.Thrombocytopenia. 4.Hypokalemia. 5.Hypertension. 6.Type 2 diabetes mellitus. 7.Mixed hyperlipidemia. 8.Gastroesophageal reflux disease. 9.Diverticulosis. 10.Chronic back pain. 11.Osteoporosis. Plan: Admit patient to hospital for further evaluation and management of this problem. The patient is appropriate for inpatient and is expected to spend 2 midnights in hospital. We will go ahead and start the patient on IV steroid, IV antibiotic, which is Levaquin and nebulizer treatment. DVT proph ylaxis will be given using Lovenox. For hypertension, we will continue antihypertensive medications per order. Monitor blood pressure. If necessary, adjust blood pressure medications. Diabetes will be managed with sliding scale insulin. Ambulation was encouraged. I will go ahead and get a CAT sca n of the chest done tomorrow without contrast and I will see her tomorrow morning for followup. Deta ils and plan of treatment discussed with the patient. We will also start her on inhaler, Dulera 2 pu ffs 2 times a day. For hyperlipidemia, we will continue cholesterol medication per order. For gastr oesophageal reflux disease, we will continue proton pump inhibitor per order. DONALDO/MODL Voice ID: [id number]
[2023-08-24] MEDS: METHYLPREDNISOLONE 40 MG INJ IV SCH ×2 (01:07→09:34)
[2023-08-24] MEDS: ALBUTEROL 2.5 MG/3 ML NEB SOL NEB SCH ×3 (02:25→13:41)
[2023-08-24 04:06] VITALS: O2SAT 96
[2023-08-24 05:02] LABS: Potassium 3.7 mEq/L (3.5-5.1)
[2023-08-24] MEDS: PANTOPRAZOLE 40MG TABLET PO SCH (06:00)
--- NOTE | 2023-08-24 06:44 | PN ---
Date of Progress Note: 08/23/2023 Subjective: The patient was seen this morning for followup. She was feeling better compared to yest erday. Still has some cough, chest congestion, wheezing, but overall it is better. Objective: Vital Signs: Reviewed. HEENT: Unremarkable. Lungs: Bilateral good equal air entry. Presence of scattered wheezing noted, which is better today than yesterday. Not using accessory muscles of respiration. Some left basal rales noted. Heart: Sounds normal. Abdomen: Soft. Bowel sounds normal. No guarding, rigidity, tenderness, distention. Extremities: No leg edema. Impression: 1.Acute exacerbation of mild intermittent asthma. 2.Allergic rhinitis. 3.Hypertension. 4.Type 2 diabetes mellitus. 5.Chronic obstructive pulmonary disease. Plan: Chest x-ray did not show any pneumonia. CAT scan of the chest was ordered today without contr ast and that has not shown any pneumonia either. Chest x-ray, as well as CAT scan of the chest has s hown changes of COPD. The patient has never smoked and her history is consistent with mild intermitt ent asthma. I have discussed all these details with her regarding the chest x-ray finding as she had question about COPD. At this time, we will go ahead and continue steroid, antibiotics, nebulizer tr eatment. Continue her antihypertensive medication and I will see her tomorrow. Possible discharge to go home tomorrow. Am bulation was encouraged. DONALDO/MODL Voice ID: [id number] Report ID: [id number]
[2023-08-24] MEDS ORDERED: POTASSIUM 25 MEQ EFFERV TAB PO ONE (08:00)
[2023-08-24] MEDS: DULERA 200/5 (MOMETASONE/FORMOTEROL) INHALER IH SCH (09:34)
[2023-08-24] MEDS: METOPROLOL TAR 50 MG TAB PO SCH (09:34)
[2023-08-24] MEDS: LOSARTAN POTASSIUM 50 MG TABLET PO SCH (09:34)
[2023-08-24] MEDS: AMLODIPINE 5 MG TAB PO SCH (09:34)
[2023-08-24 10:30] VITALS: BP 144/60; TEMP 97.1
--- NOTE | 2023-08-24 21:05 | DS ---
Date of Discharge: 08/24/2023 Disposition: Discharged to go home. Physical Examination: HEENT: Unremarkable. Lungs: Clear to auscultation. Heart: Sounds normal. Abdomen: Soft. Bowel sounds normal. No guarding, rigidity, tenderness, distention. Extremities: No leg edema. Laboratory Data: Upon admission, white count was 10.3, hemoglobin 14.1, platelets 110. Sodium 141, potassium 3.1, chloride 107, bicarb 30, BUN 17, creatinine 0.88, glucose 110. Today, chemistry shows sodium 139, potassium 3.7, chloride 107, bicarb 29, BUN 22, creatinine 0.93, glucose . Ch est x-ray, changes of COPD, no acute infiltrate. CAT scan of the chest also shows changes of COPD wi thout any infiltrate. Hospital Course: This is a 78-year-old pleasant female patient admitted to the hospital with cough, congestion, shortness of breath. Please see dictated H and P for more information. After patient wa s evaluated at office, she was admitted to the hospital with failure of outpatient medical management . Once she was admitted to the hospital, routine blood work and x-ray were done. She was started on nebulizer treatment, steroid, methylprednisolone IV, antibiotic Levaquin IV, and Dulera inhaler. He r home medications were continued. Overall, her condition improved significantly and today she was d ischarged to go back home in stable condition with following discharge medications and instructions. Final Diagnoses: 1.Acute exacerbation of mild intermittent asthma. 2.Chronic obstructive pulmonary disease. 3.Hypokalemia. 4.Thrombocytopenia. 5.Hypertension. 6.Type 2 diabetes mellitus. 7.Mixed hyperlipidemia. 8.Gastroesophageal reflux disease. 9.Diverticulosis. 10.Chronic back pain. 11.Osteoporosis. Discharge Medications And Instructions: 1.Continue all prior home medications. 2.Take Levaquin 500 mg daily for 1 week and prednisone 10 mg take 3 tablets daily for 3 days, then 2 tablets daily for 3 days, then 1 tablet daily for 3 days, then stop, take it with food. 3.Follow up at my office next week. DONALDO/MODL Voice ID: [id number] Report ID: [id number]
== END 2023-08-24 13:00 | disposition home or self-care (01) | DRG 203 ==
LOC: 2ND 14:37
PROVIDERS: ADMIT Internal Medicine; ATTEND Internal Medicine
DX: J45.21 Mild intermittent asthma with (acute) exacerbation (principal); E78.2 Mixed hyperlipidemia; E11.9 Type 2 diabetes mellitus without complications; I10 Essential (primary) hypertension; K21.9 Gastro-esophageal reflux disease without esophagitis; G89.29 Other chronic pain; M54.9 Dorsalgia, unspecified; D69.6 Thrombocytopenia, unspecified; E87.6 Hypokalemia; J44.9 Chronic obstructive pulmonary disease, unspecified; K57.90 Diverticulosis of intestine, part unspecified, without perforation or abscess without bleeding; M81.0 Age-related osteoporosis without current pathological fracture; Z88.8 Allergy status to other drugs, medicaments and biological substances; Z86.16 Personal history of COVID-19; Z96.652 Presence of left artificial knee joint; Z90.710 Acquired absence of both cervix and uterus
CPT/HCPCS: 36415; 71046; 71250; 80048; 80053; 83735; 85025; 94640; J1650; J2920; J3535; J7050; J7613

== ENCOUNTER 2024-08-30 06:46 | Day surgery (SDC) | payer OTHER ==
[2024-08-20 09:33] LABS: Absolute Lymphocytes (CBC) 2.1 K/uL (0.7-4.9); Absolute Monocytes 3.1 K/uL (0.1-1.3); Basophils % 0.5 % (0-1.3); Eosinophils % 0.6 % (0-4.4); Hematocrit 42.2 % (36.0-45.0); Lymphocytes % 24.9 % (15.3-44.8); MCH 30.4 pg (27.0-35.0); MCHC 33.2 g/dL (32.0-36.0); MCV 91.8 fL (80-100); MPV 8.9 fL (7.6-11.3); Monocytes % 37.1 % (3.3-12.3); Neutrophils % 36.9 % (41.7-73.7); Platelets 164 thou/uL (152-406); Red Cell Distribution Width 13.4 % (12.1-15.2)
[2024-08-20 09:40] LABS: Anion Gap 7.4 mEq/L (5.0-15.0); Potassium 3.4 mEq/L (3.5-5.1)
[2024-08-20 10:19] LABS: Blood Morphology Comment NOT SEEN (NOT SEEN); Differential Total Cells Count 100; Eosinophils 1 % (0-3); Lymphocytes 23 % (15-42); Monocytes 32 % (0-10); Platelet Estimate ADEQ; Segmented Neutrophils 44 % (40-80)
[2024-08-30] MEDS ORDERED: propofoL 200 MG/20 ML VIAL IV ONE (07:11)
[2024-08-30] MEDS ORDERED: ONDANSETRON 4 MG/2 ML VIAL ONE (07:11)
[2024-08-30] MEDS ORDERED: FENTANYL CITR 100 MCG/2 ML ONE (07:11)
[2024-08-30] MEDS ORDERED: LIDOCAINE 2% MPF 5 ML VIAL ONE (07:12)
[2024-08-30] MEDS: CEFAZOLIN SODIUM 2 GM/VIAL ONE (07:44)
[2024-08-30] MEDS: LIDOCAINE HCL/EPINEPHRINE 20 ML MDV ONE (07:46)
[2024-08-30] MEDS: NA CHLORIDE 0.9% 1,000 ML ONE (08:13)
[2024-08-30] MEDS ORDERED: EPHEDRINE SULF 50 MG/ML VIAL ONE (08:36)
[2024-08-30] MEDS ORDERED: Phenylephrine HCl 10 MG/ML 1 ML VIAL ONE (08:39)
[2024-08-30] MEDS ORDERED: NS 0.9% VIAL 10 ML ONE (08:39)
[2024-08-30] MEDS ORDERED: NS 0.9% VIAL 20 ML ONE (08:48)
[2024-08-30] MEDS ORDERED: SUCCINYLCHOLINE 20 MG/ML (10 ML) IV ONE (10:37)
[2024-08-30 11:47] VITALS: BP 112/47; TEMP 97; O2SAT 95
--- NOTE | 2024-08-30 13:02 | RAD REPORT ---
EXAM: Fluoroscopy use, Fluoroscopy <1 Hour HISTORY: SACRAL NEURO MODULATION COMPARISON: None FINDINGS: Multiple images were sent to PACS, during a fluoroscopically guided procedure. No radiologi st was involved in protocoling or performance of the study, and no radiologist was present for the duration of the procedure. No interpretation of the saved images will be provided. Total fluoroscopy time: 0.9 minutes. IMPRESSION: Documentation of fluoroscopy use as above.
== END 2024-08-30 11:45 | disposition home or self-care (01) ==
LOC: OR 06:46
PROVIDERS: ATTEND Obstetrics & Gynecology
PROC: 01HY3MZ Insertion of Neurostimulator Lead into Peripheral Nerve, Percutaneous Approach (ICD-10-PCS; principal; 2024-08-30 08:00)
DX: N39.46 Mixed incontinence (principal); R15.9 Full incontinence of feces
CPT/HCPCS: 64561; 85025; 80048; 36415; 82947 ×2; A4216 ×2; J2704; J2371; J2001; J3010; J2405; J7030; C1778; 76000; J2003

== ENCOUNTER 2024-09-06 06:03 | Day surgery (SDC) | payer OTHER ==
[2024-09-06] MEDS ORDERED: Ringers Lactate 0 ML IV ONE (06:24)
[2024-09-06] MEDS ORDERED: FENTANYL CITR 100 MCG/2 ML ONE (06:47)
[2024-09-06] MEDS ORDERED: LIDOCAINE 2% MPF 5 ML VIAL ONE (06:47)
[2024-09-06] MEDS ORDERED: propofoL 200 MG/20 ML VIAL IV ONE (06:47)
[2024-09-06] MEDS ORDERED: ONDANSETRON 4 MG/2 ML VIAL ONE (06:47)
[2024-09-06] MEDS: NA CHLORIDE 0.9% 1,000 ML ONE (06:50)
[2024-09-06] MEDS ORDERED: SUGAMMADEX SODIUM 200 MG/2 ML VIAL IV ONE (06:58)
[2024-09-06] MEDS: CEFAZOLIN SODIUM 2 GM/VIAL ONE (07:09)
[2024-09-06] MEDS: LIDOCAINE HCL/EPINEPHRINE 20 ML MDV ONE (07:10)
[2024-09-06] MEDS ORDERED: ROCURONIUM 50 MG/5 ML VIAL IV ONE (07:18)
[2024-09-06] MEDS ORDERED: EPHEDRINE SULF 50 MG/ML VIAL ONE (07:23)
[2024-09-06] MEDS ORDERED: dexAMETHasone 10 MG/ML VIAL ONE (07:32)
[2024-09-06 10:06] VITALS: BP 122/51; TEMP 96.6; O2SAT 96
--- NOTE | 2024-09-06 19:13 | OP ---
Date of Procedure: 09/06/2024 Surgeon: Meme Kenyon MD [employer] Driving: No service assistant. Preoperative Diagnoses: Fecal incontinence and urge urinary incontinence. Postoperative Diagnoses: Fecal incontinence and urge urinary incontinence. Procedure Performed: Stage II InterStim (incision and subcutaneous implantation of sacral nerve neur ostimulator with electronic analysis and programming). Anesthesia: General endotracheal. Specimens: No specimens. Complications: No complications. Drains: No drains. Condition: Stable. Estimated Blood Loss: 10 mL. Findings: Right buttock pocket for the neurostimulator was created and implanted and passed all impe dance checks and it was programmed at 2.9 milliamps. Brief History And Physical: The patient is an 79-year-old female with severe urge urinary incontinen ce refractory to first and second-line therapies. She underwent an office percutaneous nerve evaluat ion with which she had an excellent response and reduction of both urgency incontinence as well as fe jairo incontinence. She was then consented and brought in for a full system implantation during which there were not excellent motor responses on the S3 nerve when the lead was placed; however, the lead was placed in a very optimal position and was satisfactory on fluoroscopy. The patient was then deci ded to be staged and so only stage I was performed at that time. The patient was programmed and in t he last 1 week trialed for results and she has excellent results with improvement in both urgency inc ontinence as well as fecal incontinence. Therefore, she was consented for stage II and brought to [facility] OR today after re-consenting in the preoperative area. She was taken back to the OR. 2 g of Ancef were given. SCDs were placed. She was intubated and then had to be positioned onto the operating r oom table according to the OR protocol in the prone position. The patient was prepped and draped in a sterile fashion using the Betadine solution and 1% lidocaine with epi, 10 mL was injected at the po cket site. The previous buttock pocket incision was opened using a 15 blade on the skin and a Bovie to dissect d own and the lead and the percutaneous nerve extension connection were identified. These were elevate d out of the pocket. Once the lead was identified, the proper percutaneous nerve wire was cut and it was removed from the field ensuring sterility. The subcutaneous pocket anterior to the muscle surfa ce was enlarged and hemostasis was established with the Bovie. The sutures holding the protective arben ot were cut and once the protective boot was exposed, the set screws were loosened with a hex wrench, and the boot was removed and discarded. The lead was then cleansed off bodily fluids and drained. The lead was inserted into the header of t he neurostimulator until the blue tip was visualized in the distal window and the single set screw wa s tightened. The subcutaneous pocket was then irrigated with sterile water and antibiotic solution and once hemost asis was secured again, the neurostimulator was placed in the subcutaneous pocket with the etched mikayla ntification side placed upwards and the excessive lead wrapped counter clockwise below the neurostimu lator. The programming head was then placed over the implanted neurostimulator in a sterile cover to ensure adequate lead connection and that the parameters were within normal limits. The impedances w ere confirmed to be within normal limits. After ensuring proper hemostasis in the subcutaneous plane, the subcutaneous tissues were closed with the help of 3-0 chromic in an interrupted fashion and the skin was closed with interrupted 5-0 Monoc ryl in an interrupted fashion getting good apposition. The wound was closed with Dermabond. The cou nts were correct. Dressing was placed over both incisions. Estimated blood loss was 10 mL. The pat ient was recovered and transferred to the recovery room in a satisfactory condition and the programmi ng was already done as we knew the settings. The generator was programmed. The patient was given instructions on utilizing the patient graphics programmer prior to discharge and final e lectrode selections programmed at 2.9 milliamps. The patient will follow up in 3 weeks. MORGAN/ROBINSON Voice ID: [id number] Report ID: [id number]
--- NOTE | 2024-09-10 08:22 | OP ---
Date of Procedure: 08/30/2024 Surgeon: Meme Kenyon MD Instrument Sterilizer: No assistants. Preoperative Diagnoses: Urge urinary incontinence and fecal incontinence. Postoperative Diagnoses: Urge urinary incontinence and fecal incontinence. Procedures Performed: Stage I InterStim (incision and implantation of tined quadripolar lead electro dee into S3 foramen with fluoroscopic guidance for needle placement). Specimens: None. Complications: None. Drains: None. Anesthesia: General endotracheal. Estimated Blood Loss: Minimal. Findings: Right S3 lead was placed as there was no motor response with Reynaldo or toe on either righ t or left side. Then, the patient had a percutaneous node evaluation in the office, where the right side was tested and she had an excellent response with significant improvement of her urinary inconti nence as well as fecal incontinence. I left the lead S3 in place on the right side and decided to on ly do stage I instead of both stages I and II as she was consented. The position of the lead in an o ptimal fashion was confirmed by both AP and lateral views using fluoroscopy. The patient's condition was stable and pocket was created on the patient's right side. Although no implant was placed just for the stage I, I made an incision on the same side. The patient has significant urge urinary incontinence and fecal incontinence. Bladder log has been d one. Bowel management with optimization of fiber and antimotility drugs was done. Urinary incontine nce, overactive bladder pathway was followed. She failed both first and second line treatments, and both of those in combination and pelvic floor exercises failed to give her any relief, so discussed a bout Botox and the neurostimulation, neurostimulation being very favorable due to the presence of bot h fecal and urinary incontinence. The patient consented for an outpatient percutaneous node evaluati on, during which the lead on the right side had produced significant improvement in her urinary incon tinence as well as fecal incontinence after this, and she was tested with an external test stimulator for a week, so she was consented for both stages I and II, and brought into the OR. After re-consenting her in the preoperative area with her at her bedside and all questions an d answers were done to their satisfaction, she was taken back to the OR. She was properly identified and intubated on the operation bed and then properly placed in a prone position by the OR protocol o n the OR table. Pillows were placed under her lower abdomen to flatten her sacrum and under her connelly s to allow the toes to dangle freely. The patient was then prepped and draped in a sterile fashion u sing Betadine. The C-arm was draped and moved into position, and fluoroscopic mapping of the sacral region, which in cluded the marking of the midline of the sacrum, SI joints, sciatic notches was done and the medial f oraminal borders and sacral foramina were identified. The C-arm was then moved into the lateral posi tion to image the area from the sacral promontory of the coccyx. Surface markings were made 9 cm above the midline and at each centimeter 2 cm laterally markings were made, and the entire surface markings were created. Then, local injection with 1% lidocaine with ep inephrine was injected in the areas to be used, 10 mL on each side. Foramen needle was then introduced at 11 cm above and 2 cm lateral. S3 foramen was then found and ne edle inserted into the S3 foramen, and the depth of the needle was confirmed and adjusted fluoroscopi shanika. Then, for proper needle position and confirmation on the patient, she was tested using the ex ternal test stimulator, but there was no response of bellowing or plantar flexion of the great toe, s o the needle was repositioned with the direction location of the entry into S3 foramen, medial and la teral. Despite all these attempts, there was no response to Reynaldo and toes, so went onto the left side and inserted the needle. Needle position confirmed. However, the patient failed to have any re sponse on this side as well; however, there was also significant scar tissue on the left side and it was more appropriate to place it on the right side. Then, I went up one foramen space above, where I found S3 and then placing the needle here, there was clear response of S2 with heel rotation and the response at the hip with external rotation, so this was definitely S3 down here, tried the response at S4 as well; however, there was no Reynaldo in S4 ei ther on the stimulation, so at this point the options were either to not place the implant at all or do stage I and look for a sensory response on the patient when she is awake and then either come back for placing the neurostimulator and completing stage II or removing the lead. After deciding to proceed with only stage I, this patient had an excellent response on PNE. The foramen needle stylet was removed and bidirectional guide was placed, confirmed fluoroscopically and foramen needle was then removed. An incision was made peripheral to the bidirectional guide thro ugh the fascial layer. The lead introducer sheath and dilator were placed over the guide and directe d into the foramen ensuring the radiopaque marker of the lead introducer did not extend beyond anteri or to the sacrum. The dilator was unlocked and removed along with the bidirectional guide. The lead was then placed through the introducer sheath to the first line and the position was checked fluoros copically. The lead was then further introduced until 3 electrodes were visible below the sacrum, an d each electrode was tested for the location of the patient sensation and visualization of the Bellow s and plantar flexion of the great toe, and I had no response with this. After satisfactory position ing was confirmed fluoroscopically, the introducer sheath was retracted under continuous fluoro deplo beverley the lead tines into the parasacral tissue. Further incision was made into subcutaneous tissue, posterior iliac crest, and lateral to the sacrum on the right side. Blunt dissection was continued until the gluteal fascia was identified, and hemos tasis was achieved with the Bovie. The tunneling tool with a straw was placed from the exit site sub cutaneously to the incised pocket site, and the tunneling tool was removed. The lead was fed through the straw and pulled out the pocket site. The lead was cleansed off bodily fluids and dried, and a protective boot was placed over the lead. The lead was inserted into the temporary percutaneous exte nsion, the metal bands were aligned and the 4 set screws were tightened with the hex wrench. The tatmu t was then pushed over the connection and silk ties were sutured to the boot grooves on either side o f the connection. Tunnel was made subcutaneously and exited through the puncture site above the ipsilateral buttock. T he percutaneous extension was placed through the straw and exposed, and connected to the Twist Lock g ray cable. The wounds were irrigated with antibiotic solution and water and closed with 3-0 Vicryl sutures in th e subcutaneous plane. The counts were correct. Both incisions were closed. Steri-Strips and gauze were placed over all incisions. Tegaderm was placed. 4-0 Monocryl was used to close all incision si lory in an interrupted fashion. EBL was minimal. The gauze was placed onto the Twist Lock cable conn lolly. The patient was transferred to the recovery room in a satisfactory condition. Using the exte rnal test stimulator, the patient was programmed for optimum sensation, which she did feel the sensat ion utilizing the external test stimulator prior to discharge. Diary will be kept and she will retur n to the office in 1 week for test stimulation results and consent for stage II. She was recovered f rom anesthesia in a stable condition and then sent to the recovery room, and her was debriefe d about the circumstances of the decision and her procedure itself. He was very satisfied with the e xplanation and will follow up in 1 week. MORGAN/ROBINSON Voice ID: [id number] Report ID: [id number]
== END 2024-09-06 09:54 | disposition home or self-care (01) ==
LOC: OR 06:03
PROVIDERS: ATTEND Obstetrics & Gynecology
PROC: 01HY3MZ Insertion of Neurostimulator Lead into Peripheral Nerve, Percutaneous Approach (ICD-10-PCS; principal; 2024-09-06 07:00)
DX: N39.41 Urge incontinence (principal); R15.9 Full incontinence of feces
CPT/HCPCS: 82947 ×2; 64561; J2704; J2003; J3010; J1100; J2405; J7030; C1767; J7120

== ENCOUNTER → 2024-10-22 | Day surgery (SDC) | payer OTHER ==
[2024-10-19 14:04] LABS: Absolute Lymphocytes (CBC) 2.3 K/uL (0.7-4.9); Absolute Monocytes 1.5 K/uL (0.1-1.3); Basophils % 0.7 % (0-1.3); Eosinophils % 0.6 % (0-4.4); Hemoglobin 12.7 g/dL (12.0-15.0); Lymphocytes % 38.1 % (15.3-44.8); MCH 30.3 pg (27.0-35.0); MCHC 32.6 g/dL (32.0-36.0); MCV 92.9 fL (80-100); MPV 9.1 fL (7.6-11.3); Neutrophils % 34.6 % (41.7-73.7); Platelets 153 thou/uL (152-406); RBC Red Blood Cell Count 4.19 M/uL (3.86-4.86); Red Cell Distribution Width 12.6 % (12.1-15.2)
[2024-10-19 14:17] LABS: Anion Gap 8.4 mEq/L (5.0-15.0); Potassium 4.4 mEq/L (3.5-5.1)
[2024-10-19 15:33] LABS: Blood Morphology Comment NOT SEEN (NOT SEEN); Platelet Estimate ADEQ; White Blood Cell Scan OK (OK)
[~2024-10-22] MED LIST: LIDOCAINE 1% MPF 2 ML AMPULE ONE; propofoL 200 MG/20 ML VIAL IV ONE
[2024-10-22] MEDS: NA CHLORIDE 0.9% 1,000 ML ONE (12:16)
[2024-10-22 14:26] VITALS: TEMP 97
[2024-10-22 14:29] VITALS: BP 135/50; O2SAT 98
== END ==
LOC: OR 11:28
PROVIDERS: ATTEND Surgery
PROC: 0DB78ZX Excision of Stomach, Pylorus, Via Natural or Artificial Opening Endoscopic, Diagnostic (ICD-10-PCS; 2024-10-22)
PROC: 0DB28ZX Excision of Middle Esophagus, Via Natural or Artificial Opening Endoscopic, Diagnostic (ICD-10-PCS; 2024-10-22)
PROC: 0DB98ZX Excision of Duodenum, Via Natural or Artificial Opening Endoscopic, Diagnostic (ICD-10-PCS; principal; 2024-10-22 13:30)
DX: R13.19 Other dysphagia (principal); K44.9 Diaphragmatic hernia without obstruction or gangrene; K29.51 Unspecified chronic gastritis with bleeding
CPT/HCPCS: 85025; 80048; 36415; 88312; 82947; 88305; 43239; J2704; J7030